=== PATIENT | female | born 1990 | race Caucasian/White ===

== ENCOUNTER → 2019-12-15 14:39 | Outpatient (BNVA) | payer MEDICAID, SELFPAY | PROVIDERS: Family Provider Family Medicine; Visit Provider Psychiatry & Neurology Psychiatry | DX: F41.1 Generalized anxiety disorder (principal); F32.9 Major depressive disorder, single episode, unspecified; F15.20 Other stimulant dependence, uncomplicated; F11.10 Opioid abuse, uncomplicated; F12.21 Cannabis dependence, in remission | CPT/HCPCS: 90792 ==

== ENCOUNTER → 2019-12-24 10:46 | Outpatient (BNVA) | payer MEDICAID, SELFPAY | PROVIDERS: Family Provider Family Medicine; Visit Provider Psychiatry & Neurology Psychiatry | DX: F32.9 Major depressive disorder, single episode, unspecified (principal); F41.1 Generalized anxiety disorder; F15.20 Other stimulant dependence, uncomplicated; F11.10 Opioid abuse, uncomplicated; F12.21 Cannabis dependence, in remission; Z79.899 Other long term (current) drug therapy; F17.200 Nicotine dependence, unspecified, uncomplicated | CPT/HCPCS: 81025; 99214 ==

== ENCOUNTER → 2020-01-18 13:39 | Outpatient (BNVA) | payer MEDICAID, SELFPAY | PROVIDERS: Family Provider Family Medicine; Visit Provider Psychiatry & Neurology Psychiatry | DX: Z79.899 Other long term (current) drug therapy (principal) | CPT/HCPCS: 80306 ==

== ENCOUNTER → 2020-02-14 08:12 | Outpatient (BNVA) | payer MEDICAID, SELFPAY | PROVIDERS: Family Provider Family Medicine; Visit Provider Psychiatry & Neurology Psychiatry | DX: F41.1 Generalized anxiety disorder (principal); F32.9 Major depressive disorder, single episode, unspecified; F15.20 Other stimulant dependence, uncomplicated; F11.10 Opioid abuse, uncomplicated; F12.21 Cannabis dependence, in remission | CPT/HCPCS: 99213 ==

== ENCOUNTER 2020-07-31 14:05 | Emergency (ER) | payer BC, MEDICAID, SELFPAY ==
[2020-07-31 14:11] VITALS: BP 143/95; PULSE 126; RESP 16; TEMP 36.2; O2SAT 97
--- NOTE | 2020-07-31 14:19 | US_ITS ---
WS: [id number] RIGHT UPPER QUADRANT ULTRASOUND HISTORY: R abdominal pain COMPARISON: None available. Liver: 19.2 cm in length. Liver is moderately enlarged. Otherwise liver is negative. No bile duct dil atation or mass. Gallbladder: Normally distended gallbladder with no stones or wall thickening. CBD: 0.6 cm Pancreas: Normal size and echogenicity. Right kidney: 11.9 cm in length. Normal size and echogenicity. No hydronephrosis or mass. Aorta and IVC: Unremarkable abdominal aorta and IVC. No ascites. US/US gall bladder [id number] IMPRESSION: 1. Moderate hepatomegaly. 2. Negative gallbladder. 3. No ascites.
[2020-07-31] MEDS: ketorolac 30 mg/mL INJ IVP (17:22)
[2020-07-31 17:24] VITALS: BP 134/99; PULSE 106; RESP 18; O2SAT 100
[2020-07-31 17:27] LABS: Basophils # 0.1 10^3/uL (0.0-0.1); Basophils % 0.8 %; Eosinophils # 0.1 10^3/uL (0.0-0.8); Eosinophils % 0.9 %; Hematocrit 42.3 % (37.0-47.0); Hemoglobin 14.4 g/dL (11.5-15.3); Lymphocytes % 32.4 %; Mean Corpuscular Hemoglobin 31.1 pg (28.0-34.0); Mean Corpuscular Volume 91.4 fL (81-99); Mean Platelet Volume 10.1 fL (7.4-10.4); Monocytes # 0.5 10^3/uL (0.2-0.9); Monocytes % 5.3 %; Neutrophils # 5.53 10^3/uL (1.8-7.7); Neutrophils % 60.4 %; Nucleated Red Blood Cells % 0 %; Platelet Count 286 10^3/cmm (130-400); Red Blood Count 4.63 10^6/uL (4.1-5.3); Red Cell Distribution Width 12.5 % (12.1-15.1); White Blood Count 9.2 10^3/uL (4.0-10.0)
[2020-07-31 17:39] LABS: HCG, Serum Qual Negative (Negative)
[2020-07-31 17:43] LABS: Lactic Sepsis W/Reflex 1.1 mmol/L (0.5-2.2)
[2020-07-31 17:46] LABS: Alanine Aminotransferase 20 U/L (0-33); Albumin Level 4.6 g/dL (3.5-5.2); Alkaline Phosphatase 182 IU/L (35-105); Anion Gap 13.8 (5-19); Aspartate Amino Transferase 19 U/L (0-32); Blood Urea Nitrogen 11 mg/dL (6-20); Calcium 8.4 mg/dL (8.5-10.5); Carbon Dioxide 25 mmol/L (22-29); Chloride 104 mmol/L (98-107); Globulin 2.9 g/dL (1.3-4.6); Glomerular Filtration Rate 97.6 mL/min (90-130); Glucose 84 mg/dL (65-115); Lipase 11 U/L (13-60); Osmolality Calculated 287 mOsm/kg (285-295); Potassium 3.8 mmol/L (3.5-5.1); Sodium 139 mmol/L (136-145); Total Bilirubin 0.5 mg/dL (0.15-1.2); Total Protein 7.5 g/dL (6.6-8.7)
[2020-07-31 18:00] LABS: Add Urine Microscopic? YES; Bilirubin Urine Neg (Negative); Blood Urine Neg (Negative); Glucose Urine UA Norm (Normal); Ketones Urine Negative (Negative); Leukocyte Esterase Urine Negative (Negative); Nitrate Urine Negative (Negative); Protein Urine Neg (Negative); Specific Gravity, Urine 1.015 (1.005-1.030); Urine Appearance Hazy (CLEAR); Urine Color Yellow (Yellow); Urobilinogen Urine Norm (Negative); pH Urine 6 (5-7)
[2020-07-31 18:06] LABS: Bacteria Urine 1+ /hpf; Mucus Urine 1+ /hpf; RBC Urine 0-4 /hpf (0-2); Squamous Epithelial Cell Urine 40-55 /hpf (0-5); WBC Urine 0-4 /hpf (0-5)
--- NOTE | 2020-07-31 18:38 | W.ED.ABDPA2 ---
HPI - Abdominal Pain General: Chief Complaint: Abdominal Pain Stated Complaint: Sent From for Gallbladder Time Seen by Provider: 07/31/20 16:20 Source: patient Mode of arrival: ambulatory Limitations: no limitations History of Present Illness: HPI narrative: This is a 29-year-old female who presents to the emergency department with abdominal pain is located in the right upper quadrant/right flank region. She states that she was here yesterday for the same thing but left before she was properly evaluated. She went to her primary care provider's office today and because of the amount of pain she appeared to be in he advised that she come to the emergency department to be evaluated. She denies any fever, denies any nausea or vomiting. Denies any history of gallbladder disease, denies any history of kidney stones. She denies any urinary symptoms. MD elicited complaint: abdominal pain and flank pain Pertinent past history: none Onset (ago): hour(s) (1) Pain Consistency: constant Location: RUQ and R flank Severity: severe Quality: stabbing Radiation: back Exacerbating factors: nothing Relieving factors: nothing Associated Symptoms: Denies anorexia, belching, bloating, change in bowel habits, change in stool character, chills, coffee ground emesis, constipation, GI cramping, diarrhea, dyspepsia, dysuria, excessive flatus, fever(s), heartburn, hematochezia, hematuria, hematemesis, fecal incontinence, loose stools, melena, nausea, poor appetite, syncope and vomiting Related Data: Date of Last Menstrual Period: 06/29/20 Review of Systems General: Reports: 10 or more systems reviewed and unremarkable except in HPI and below Const: Denies: fever(s) or chills Card: Denies: syncope GI: Denies: nausea, vomiting, hematemesis, coffee ground emesis, heartburn, diarrhea, constipation, bloating, GI cramping, belching, excessive flatus, fecal incontinence, change in bowel habits, change in stool character, hematochezia or melena : Denies: dysuria or hematuria PFS ED PFSH: Medical History (Reviewed 07/31/20 @ 18:53 by Josefa Antunez MD, [facility]) Cannabis use disorder, moderate, in early remission, in controlled environment, dependence KAITLIN (generalized anxiety disorder) MDD (major depressive disorder) Methamphetamine use disorder, severe Opiate abuse, continuous Other wrinkle chaser (current) drug therapy Social History (Reviewed 07/31/20 @ 18:53 by Josefa Antunez MD, [facility]) Smoking and tobacco status: current every day smoker cigarettes Packs smoked per day: 1 Years cigarettes smoked: 13 [ Other cigarette details: I am only allowed to have 3 a day but when I get out I will go back. ] Quit status (tobacco): not considering quitting Second hand smoke exposure: Yes Current gender identity: Female Female Reproductive History: Date of last menstrual period: 06/29/20 Physical Exam Const: COMMON NORMALS: no acute distress, average body habitus, patient oriented x3, no limitations, healthy appearing, alert and well nourished HENMT: COMMON NORMALS: normocephalic, atraumatic and moist oral mucous membranes HEAD & SCALP: normocephalic and atraumatic Neck/C-Spine: COMMON NORMALS: no meningeal signs and no JVD Resp: COMMON NORMALS: normal respiratory effort, No retractions, No use of accessory muscles, clear to auscultation bilaterally and percussion normal AUSCULTATION: clear to auscultation bilaterally PERCUSSION: percussion normal Cardio: COMMON NORMALS: no JVD, regular rate, regular rhythm, S1 normal heart sound present, S2 normal heart sound present, No gallops present (Cardio), No clicks present (Cardio), No murmurs present (Cardio), No rub (Cardio) and Peripheral pulses 2+ throughout RATE: regular rate RHYTHM: regular rhythm HEART SOUNDS: S1 normal heart sound present and S2 normal heart sound present PERIPHERAL PULSES: Peripheral pulses 2+ throughout GI: COMMON NORMALS: Normal to inspection, nondistended, normoactive bowel sounds present, Soft to palpation, No hepatosplenomegaly present, no masses and no bruits PALPATION: Yes Soft to palpation, Yes Tenderness to palpation present (GI) Details: RUQ, No Guarding due to palpation present (GI), No Rigid due to palpation, Yes No hepatosplenomegaly present and No Rebound tenderness present : BLADDER/KIDNEY EXAM: Yes CVA tenderness Back/Pelvis: GENERAL BACK: Yes CVA tenderness CVA tenderness: right Extremity: COMMON NORMALS: normal to inspection, full ROM, capillary refill normal, no calf tenderness and no pedal edema Neuro: COMMON NORMALS: patient oriented x3 SENSORIUM/ORIENTATION: Yes alert MENINGEAL SIGNS: Yes no meningeal signs Course Vital Signs: Vital signs: Vital Signs Temperature 97.1 F L 07/31/20 14:11 Pulse Rate 106 H 07/31/20 17:24 Respiratory Rate 18 07/31/20 17:24 Blood Pressure 134/99 07/31/20 17:24 Pulse Oximetry 100 07/31/20 17:24 MDM - Abdominal Pain MDM Narrative: Medical decision making narrative: 29-year-old female patient who came into the emergency department with right upper quadrant/right flank pain. Pain started yesterday and she presented to the emergency department twice but left before she was evaluated. She went to her primary care provider today who sent her to the ED for evaluation. I discussed the results of her gallbladder ultrasound which was essentially normal. Due to right flank pain on examination I ordered a CT scan of her abdomen but the patient left before it was done. She left AGAINST MEDICAL ADVICE, she understood the risks involved including worsening of her symptoms and possibly . She however still wants to leave and left AGAINST MEDICAL ADVICE. Medical Records: Attestation: I reviewed the patient's medical records. Lab Data: Attestation: I reviewed the patient's lab results. Labs: Lab Results 07/31/20 07/31/20 07/31/20 Range/Units 17:17 17:17 17:17 WBC 9.2 (4.0-10.0) 10^3/ uL RBC 4.63 (4.1-5.3) 10^6/u L Hgb 14.4 (11.5-15.3) g/dL Hct 42.3 (37.0-47.0) % MCV 91.4 (81-99) fL MCH 31.1 (28.0-34.0) pg MCHC 34.0 (30.0-36.0) g/dL RDW 12.5 (12.1-15.1) % Plt Count 286 (130-400) 10^3/c mm MPV 10.1 (7.4-10.4) fL Neut % (Auto) 60.4 % Lymph % (Auto) 32.4 % [place] % (Auto) 5.3 % Eos % (Auto) 0.9 % Baso % (Auto) 0.8 % Neut # (Auto) 5.53 (1.8-7.7) 10^3/u L Lymph # (Auto) 3.0 (0.8-4.8) 10^3/u L [place] # (Auto) 0.5 (0.2-0.9) 10^3/u L Eos # (Auto) 0.1 (0.0-0.8) 10^3/u L Baso # (Auto) 0.1 (0.0-0.1) 10^3/u L Nucleated RBC % (a uto) 0 % Nucleated RBCs # 0.0 /100WBC Sodium 139 (136-145) mmol/L Potassium 3.8 (3.5-5.1) mmol/L Chloride 104 (98-107) mmol/L Carbon Dioxide 25 (22-29) mmol/L Anion Gap 13.8 (5-19) BUN 11 (6-20) mg/dL Creatinine 0.7 (0.5-0.9) mg/dL GFR Calculation 97.6 (90-130) mL/min Glucose 84 (65-115) mg/dL Calculated Osmolal ity 287 (285-295) mOsm/k g Lactic Acid 1.1 (0.5-2.2) mmol/L Calcium 8.4 L (8.5-10.5) mg/dL Total Bilirubin 0.5 (0.15-1.2) mg/dL AST 19 (0-32) U/L ALT 20 (0-33) U/L Alkaline Phosphata se 182 H (35-105) IU/L Total Protein 7.5 (6.6-8.7) g/dL Albumin 4.6 (3.5-5.2) g/dL Globulin 2.9 (1.3-4.6) g/dL Lipase 11 L (13-60) U/L HCG, Qual (Negative) Urine Color (Yellow) Urine Appearance (CLEAR) Urine pH (5-7) Ur Specific Gravit y (1.005-1.030) Urine Protein (Negative) Urine Glucose (UA) (Normal) Urine Ketones (Negative) Urine Blood (Negative) Urine Nitrate (Negative) Urine Bilirubin (Negative) Urine Urobilinogen (Negative) mg/dL Ur Leukocyte Cyndee ase (Negative) Urine RBC (0-2) /hpf Urine WBC (0-5) /hpf Ur Squamous Epith Cells (0-5) /hpf Amorphous Sediment Urine Bacteria (NONE) /hpf Urine Mucus /hpf 07/31/20 07/31/20 Range/Units 17:17 17:27 WBC (4.0-10.0) 10^3/ uL RBC (4.1-5.3) 10^6/u L Hgb (11.5-15.3) g/dL Hct (37.0-47.0) % MCV (81-99) fL MCH (28.0-34.0) pg MCHC (30.0-36.0) g/dL RDW (12.1-15.1) % Plt Count (130-400) 10^3/c mm MPV (7.4-10.4) fL Neut % (Auto) % Lymph % (Auto) % [place] % (Auto) % Eos % (Auto) % Baso % (Auto) % Neut # (Auto) (1.8-7.7) 10^3/u L Lymph # (Auto) (0.8-4.8) 10^3/u L [place] # (Auto) (0.2-0.9) 10^3/u L Eos # (Auto) (0.0-0.8) 10^3/u L Baso # (Auto) (0.0-0.1) 10^3/u L Nucleated RBC % (a uto) % Nucleated RBCs # /100WBC Sodium (136-145) mmol/L Potassium (3.5-5.1) mmol/L Chloride (98-107) mmol/L Carbon Dioxide (22-29) mmol/L Anion Gap (5-19) BUN (6-20) mg/dL Creatinine (0.5-0.9) mg/dL GFR Calculation (90-130) mL/min Glucose (65-115) mg/dL Calculated Osmolal ity (285-295) mOsm/k g Lactic Acid (0.5-2.2) mmol/L Calcium (8.5-10.5) mg/dL Total Bilirubin (0.15-1.2) mg/dL AST (0-32) U/L ALT (0-33) U/L Alkaline Phosphata se (35-105) IU/L Total Protein (6.6-8.7) g/dL Albumin (3.5-5.2) g/dL Globulin (1.3-4.6) g/dL Lipase (13-60) U/L HCG, Qual Negative (Negative) Urine Color Yellow (Yellow) Urine Appearance Hazy A (CLEAR) Urine pH 6 (5-7) Ur Specific Gravit y 1.015 (1.005-1.030) Urine Protein Neg (Negative) Urine Glucose (UA) Norm (Normal) Urine Ketones Negative (Negative) Urine Blood Neg (Negative) Urine Nitrate Negative (Negative) Urine Bilirubin Neg (Negative) Urine Urobilinogen Norm (Negative) mg/dL Ur Leukocyte Cyndee ase Negative (Negative) Urine RBC 0-4 H (0-2) /hpf Urine WBC 0-4 H (0-5) /hpf Ur Squamous Epith Cells 40-55 H (0-5) /hpf Amorphous Sediment Not Reportable Urine Bacteria 1+ H (NONE) /hpf Urine Mucus 1+ /hpf Imaging Data ^: US: Attestation: I personally reviewed and interpreted this imaging study as follows: Radiologist's impression: [id number] [id number] ReportSigned Patient: Kari Sawyer AUnit #: [id number]: [id number]#:[id number]/Sex: 29 / FADM Date: 07/31/20Loc: ERRoom/Bed:Attending Dr: Ordering Provider/Ordering MD: Radha Perez Date of Service: 07/31/20 Procedure(s): US gall bladder 41875 Accession Number(s): [id number] Report Number: [id number] WS: [id number] RIGHT UPPER QUADRANT ULTRASOUND HISTORY: R abdominal pain COMPARISON: None available. Liver: 19.2 cm in length. Liver is moderately enlarged. Otherwise liver is negative. No bile duct dilatation or mass. Gallbladder: Normally distended gallbladder with no stones or wall thickening. CBD: 0.6 cm Pancreas: Normal size and echogenicity. Right kidney: 11.9 cm in length. Normal size and echogenicity. No hydronephrosis or mass. Aorta and IVC: Unremarkable abdominal aorta and IVC. No ascites. US/US gall bladder [id number] IMPRESSION: 1. Moderate hepatomegaly. 2. Negative gallbladder. 3. No ascites. Dictated By:Kay Moore DOSigned By:Kay Moore DOSigned Date/Time:07/31/201458DD/ 56 Discharge Plan Discharge Patient Disposition: Left Against Medical Advice Clinical Impression: Abdominal pain Prescriptions: No Action clonidine HCl 0.1 mg tablet 0.1 mg PO BID 30 Days Qty: 60 RF: 3 hydroxyzine HCl 50 mg tablet 50 mg PO TID PRN (Reason: anxiety) Qty: 90 RF: 3 gabapentin 300 mg capsule 600 mg PO TID 30 Days Qty: 180 RF: 4 Remeron 15 mg tablet 15 mg PO BEDTIME RF: 0 venlafaxine 225 mg tablet extended release 24hr 225 mg PO DAILY RF: 0 Referrals: Luis Felipe Rodriguez MD [Primary Care Provider] - Patient Instructions: Abdominal Pain (ED) Coding Level of Care Code ED Gwot Ia/[employer] Support for Chg Fwd Exam Comprehensive
== END 2020-07-31 17:47 | disposition left against medical advice (07) ==
PROVIDERS: Physician Assistant; Emergency Provider Family Medicine; PCP Family Medicine
DX: R10.9 Unspecified abdominal pain (principal); Z53.21 Procedure and treatment not carried out due to patient leaving prior to being seen by health care provider; F17.210 Nicotine dependence, cigarettes, uncomplicated
CPT/HCPCS: 76705; 80053; 81001; 83605; 83690; 84703; 85025; 96374; 99283; J1885

== ENCOUNTER → 2020-12-25 11:07 | Outpatient (BNVA) | payer BC, MEDICAID, SELFPAY | PROVIDERS: PCP Family Medicine; Visit Provider Psychiatry & Neurology Psychiatry | DX: F41.9 Anxiety disorder, unspecified (principal); F32.9 Major depressive disorder, single episode, unspecified; F41.1 Generalized anxiety disorder; F15.20 Other stimulant dependence, uncomplicated; F11.10 Opioid abuse, uncomplicated; F12.21 Cannabis dependence, in remission | CPT/HCPCS: 99214 ==

== ENCOUNTER 2021-01-05 15:46 | Emergency (ER) | payer BC, MEDICAID, SELFPAY ==
[2021-01-05 16:36] VITALS: BP 141/105; PULSE 107; RESP 22; O2SAT 95
--- NOTE | 2021-01-05 16:43 | ED_ITS ---
HPI - Trauma General: Chief Complaint: Wound/Laceration Stated Complaint: L ARM LAC Time Seen by Provider: 01/05/21 16:42 History of Present Illness: HPI narrative: Ms. Sawyer is a 30-year-old lady with history of psychiatric disorder presents emergency department due to traumatic injury. She has been at her baseline health without reported changes until today. She got angry and punched a piece of glass with her left arm, her arm went through the glass and she received multiple cuts. She does endorse consuming alcohol today and is upset. Pain is sharp/aching and moderate in intensity worse with palpation. She removed some larger fragments of glass. No other specific changes in health, exacerbating, relieving factors identified. Bleeding is controlled. Unclear last Tdap. 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 ] Quit status (tobacco): not considering quitting Second hand smoke exposure: Yes Current gender identity: Female Female Reproductive History: Date of last menstrual period: 06/29/20 Physical Exam Narrative: EXAM NARRATIVE: GENERAL/CONSTITUTIONAL - well-appearing. Tearful but no acute distress. Patient appears mildly visibly intoxicated. Eyes - PERRL, no conjunctival injection ENMT - Atraumatic external nose and ears. Moist mucous membranes NECK - supple. trachea midline CARDIOVASCULAR - regular rate and rhythm. Peripheral pulses 2+ and equal RESPIRATORY -clear to auscultation bilaterally. No retractions or accessory muscle use. ABDOMEN/GI - Nontender/Nondistended. No tenderness to percussion or evidence of peritonitis MSK - Extremities without obvious deformity or tenderness to palpation SKIN - scattered abrasions. 3 lacerations which are transversely oriented on the forearm near the elbow as well as 1 smaller puncture wound in the posterior superior elbow region. Underlying fascia exposed however no obvious muscular or tendon involvement. NEURO - alert and appropriately oriented. strength and sensation intact. Moves all extremities equally. PSYCH - Appropriate mood and affect Procedures Laceration Laceration 1: Site: upper extremity Size (cm): 2 Description: linear Depth: simple, single layer Local Anesthetic: lidocaine 1% and with epi Amount of anesthesia used (mL): 2 Pre-repair: wound explored, irrigated extensively and deep structures intact Skin layer closed with: nylon Size (cm): 3-0 Number of sutures: 2 Technique: simple, interrupted Laceration 2: Site: upper extremity Side (If applicable): left Size (cm): 3 Description: linear Depth: simple, single layer Local Anesthetic: lidocaine 1% and with epi Amount of anesthesia used (mL): 2 Pre-repair: wound explored and irrigated extensively Skin layer closed with: nylon Size (cm): 3-0 Number of sutures: 3 Technique: simple, interrupted Laceration 3: Site: upper extremity Side (If applicable): left Size (cm): 5 Description: linear Depth: simple, single layer Local Anesthetic: lidocaine 1% Amount of anesthesia used (mL): 5 Pre-repair: wound explored and irrigated extensively Skin layer closed with: nylon Size (cm): 3-0 Number of sutures: 7 Technique: simple, interrupted Course ED course: - Patient was seen and evaluated by me at bedside - Patient placed on cardiac monitors, IV access obtained - Initial evaluation notable for tearful appearance, no acute distress. No active hemorrhage. - Tdap given - Imaging notable for foreign bodies - Laceration repair at bedside of 3 of the 4 wounds (puncture wound on the posterior elbow with limited exploration, no additional foreign bodies over the than the most superficial was located or removed). - I did notify the patient of these foreign bodies. I left the room to get the ultrasound machine for further localization and discussed the case with orthopedics. The patient subsequently left the emergency department without treatment completed. She did not notify physician stamping machine operatorstaff cytotechnologist. Therefore she did not remain to receive discharge instructions or follow-up plans, she still has likely 3 very small fragments of glass in the puncture wound. During laceration repair I did give her general wound care instructions. During ED observation. The patient did obtain clinical sobriety and had capacity to leave under her own free will. Vital Signs: Vital signs: Vital Signs Pulse Rate 107 H 01/05/21 16:36 Respiratory Rate 22 H 01/05/21 16:36 Blood Pressure 141/105 01/05/21 16:36 Pulse Oximetry 95 01/05/21 16:36 MDM - Trauma Medical Records: Attestation: I reviewed the patient's medical records. Lab Data: Attestation: I reviewed the patient's lab results. Discharge Plan Discharge Prescriptions: No Action venlafaxine 75 mg capsule,extended release 24hr 75 mg PO QAM 30 Days Qty: 30 RF: 1 Referrals: Luis Felipe Rodriguez MD [Primary Care Provider] - Coding Level of Care Code ED Grants Director for Leslieg Davidson
--- NOTE | 2021-01-05 16:49 | XRR_ITS ---
PROCEDURE INFORMATION: Exam: XR Left Forearm Exam date and time: 01/05/2021 4:49 PM Age: 30 years old Clinical indication: Injury or trauma; Other: Lacerations; Arm, lower; Injury date: 01/05/21; Injury details: Arm thru window; Patient HX: Left arm laceration/pain; Additional info: Lacerations, ? foreign body TECHNIQUE: Imaging protocol: XR Left forearm. Views: 2 views. COMPARISON: No relevant prior studies available. FINDINGS: Bones/joints: Normal. Soft tissues: 4 separate linear radiopaque foreign body seen within the soft tissues of the posterior elbow at the level of the distal humeral metadiaphysis measuring 3-4 mm in size best seen on lateral view. XR/XR forearm LT 2V [id number] IMPRESSION: Multiple linear radiopaque foreign bodies within the posterior elbow measuring 3-4 mm in size.
[2021-01-05] MEDS: tetanus-dipt-pertussis 0.5 mL SDV IM (17:30)
[2021-01-05] MEDS: morphine 4 mg/mL SDV 1 mL IM (17:31)
== END 2021-01-05 19:30 ==
PROVIDERS: Emergency Provider Emergency Medicine; PCP Family Medicine
DX: S51.032A Puncture wound without foreign body of left elbow, initial encounter (principal); S51.822A Laceration with foreign body of left forearm, initial encounter; W25.XXXA Contact with sharp glass, initial encounter; F17.210 Nicotine dependence, cigarettes, uncomplicated; Z23 Encounter for immunization
CPT/HCPCS: 12004; 73090; 90471; 90715; 99283; J2270

== ENCOUNTER 2022-05-14 01:03 | Emergency (ER) | payer BC, MEDICAID, SELFPAY ==
[2022-05-14 01:09] VITALS: BP 206/153; PULSE 117; RESP 18; TEMP 36.7; O2SAT 100; BMI 27.4
--- NOTE | 2022-05-14 01:12 | ED_ITS ---
HPI - Abdominal Pain General: Chief Complaint: Abdominal Pain Stated Complaint: abd pain Time Seen by Provider: 05/14/22 01:11 History of Present Illness: 31-year-old female comes in today for complaints of right-sided abdominal pain. Patient had previous episodes of similar abdominal pain. Patient reports 1 episode of nausea and vomiting. Patient states the pain started today. Patient denies any fever. Review of patient history notes anxiety with depression, substance abuse disorder. 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 ] Quit status (tobacco): not considering quitting Second hand smoke exposure: Yes Current gender identity: Female Female Reproductive History: Date of last menstrual period: 06/29/20 Physical Exam Const: COMMON NORMALS: alert HENMT: COMMON NORMALS: normocephalic HEAD & SCALP: normocephalic MOUTH: Normal oral and palatal mucosa present Neck/C-Spine: COMMON NORMALS: full ROM Resp: COMMON NORMALS: normal respiratory effort and clear to auscultation bilaterally AUSCULTATION: clear to auscultation bilaterally Cardio: COMMON NORMALS: regular rate and regular rhythm RATE: regular rate RHYTHM: regular rhythm GI: COMMON NORMALS: Soft to palpation PALPATION: Yes Soft to palpation and Yes Tenderness to palpation present (GI) Details: RUQ Extremity: COMMON NORMALS: normal to inspection Neuro: SENSORIUM/ORIENTATION: Yes alert Skin: COMMON NORMALS: turgor normal GENERAL SKIN EXAM: turgor normal Course Vital Signs: Vital signs: Vital Signs Temperature 98.0 F 05/14/22 01:09 Pulse Rate 117 H 05/14/22 01:09 Respiratory Rate 18 05/14/22 01:09 Blood Pressure 206/153 05/14/22 01:09 Pulse Oximetry 100 05/14/22 01:09 Oxygen Delivery Me thod 05/14/22 01:09 MDM - Abdominal Pain Medical Decision Making 31-year-old female comes in today with complaints of abdominal discomfort and pain. Patient reports 1 episode of emesis. Patient appears nontoxic. Patient reports alcohol use but denies any drugs or marijuana use. On exam abdomen soft with active bowel sounds. Skin is warm and dry. Lungs are clear to auscultation. Vital signs are normal except for some elevation of blood pressure. Differential diagnosis includes but not limited to bowel obstruction, gallbladder disease, renal calculi, obstipation. CBC shows mild leukocytosis at 10,000. CMP noted a potassium of 3.3, creatinine 1.1, BUN of 21. Urine was unremarkable except for some nitrates. Suspect pain is secondary to constipation. Will start patient on lactulose and MiraLAX for his constipation. I encourage plenty of fluids and follow-up with primary care. Recommend return to the emergency department for worsening symptoms such as high fever, severe pain, or new concerns. Lab Data 05/14/22 01:20 05/14/22 01:20 Labs/Radiology: Radiology Impressions Abdomen/Pelvis CT 05/14/22 01:25 IMPRESSION: 1. No small bowel obstruction, abscess or free air. Normal appendix. 2. Perhaps mild small bowel ileus or enteritis. Fecal filled colon. 3. Large liver. A few other chronic findings above. Laboratory Results WBC 10.1 10^3/uL (4.0-10.0) H 05/14/22 01:20 RBC 4.71 10^6/uL (4.1-5.3) 05/14/22 01:20 Hgb 14.8 g/dL (11.5-15.3) 05/14/22 01:20 Hct 43.9 % (37.0-47.0) 05/14/22 01:20 MCV 93.2 fl (81-99) 05/14/22 01:20 MCH 31.4 pg (28.0-34.0) 05/14/22 01:20 MCHC 33.7 g/dL (30.0-36.0) 05/14/22 01:20 RDW 12.5 % (12.1-15.1) 05/14/22 01:20 Plt Count 304 10^3/cmm (130-400) 05/14/22 01:20 MPV 9.7 fL (7.4-10.4) 05/14/22 01:20 Neut % (Auto) 53.2 % 05/14/22 01:20 Lymph % (Auto) 35.5 % 05/14/22 01:20 [place] % (Auto) 7.2 % 05/14/22 01:20 Eos % (Auto) 2.8 % 05/14/22 01:20 Baso % (Auto) 1.0 % 05/14/22 01:20 Neut # (Auto) 5.35 10^3/uL (1.8-7.7) 05/14/22 01:20 Lymph # (Auto) 3.6 10^3/uL (0.8-4.8) 05/14/22 01:20 [place] # (Auto) 0.7 10^3/uL (0.2-0.9) 05/14/22 01:20 Eos # (Auto) 0.3 10^3/uL (0.0-0.8) 05/14/22 01:20 Baso # (Auto) 0.1 10^3/uL (0.0-0.1) 05/14/22 01:20 Nucleated RBC % (auto) 0 % 05/14/22 01:20 Nucleated RBCs # 0.0 /100WBC 05/14/22 01:20 Sodium 136 mmol/L (136-145) 05/14/22 01:20 Potassium 3.3 mmol/L (3.5-5.1) L 05/14/22 01:20 Chloride 98 mmol/L (98-107) 05/14/22 01:20 Carbon Dioxide 27 mmol/L (22-29) 05/14/22 01:20 Anion Gap 14.3 (5-19) 05/14/22 01:20 BUN 21 mg/dL (6-20) H 05/14/22 01:20 Creatinine 1.1 mg/dL (0.5-0.9) H 05/14/22 01:20 GFR Calculation 57.2 mL/min (90-130) L 05/14/22 01:20 Glucose 102 mg/dL (65-115) 05/14/22 01:20 Calculated Osmolality 285 mOsm/kg (285-295) 05/14/22 01:20 Calcium 9.1 mg/dL (8.5-10.5) 05/14/22 01:20 Total Bilirubin 0.6 mg/dL (0.15-1.2) 05/14/22 01:20 AST 24 U/L (0-32) 05/14/22 01:20 ALT 20 U/L (0-33) 05/14/22 01:20 Alkaline Phosphatase 167 U/L (35-105) H 05/14/22 01:20 Total Protein 7.7 g/dL (6.6-8.7) 05/14/22 01:20 Albumin 4.6 g/dL (3.5-5.2) 05/14/22 01:20 Globulin 3.1 g/dL (1.3-4.6) 05/14/22 01:20 Lipase 13 U/L (13-60) 05/14/22 01:20 HCG, Qual Negative (Negative) 05/14/22 01:20 Urine Color Yellow (Yellow) 05/14/22 02:19 Urine Appearance Sl hazy (CLEAR) A 05/14/22 02:19 Urine pH 6 (5-7) 05/14/22 02:19 Ur Specific [place] 1.020 (1.005-1.030) 05/14/22 02:19 Urine Protein Neg (Negative) 05/14/22 02:19 Urine Glucose (UA) Norm (Normal) 05/14/22 02:19 Urine Ketones Negative (Negative) 05/14/22 02:19 Urine Blood Neg (Negative) 05/14/22 02:19 Urine Nitrate Positive (Negative) H 05/14/22 02:19 Urine Bilirubin Neg (Negative) 05/14/22 02:19 Urine Urobilinogen Norm mg/dL (Negative) 05/14/22 02:19 Ur Leukocyte Esterase Negative (Negative) 05/14/22 02:19 Urine RBC 0-4 /hpf (0-2) H 05/14/22 02:19 Urine WBC 0-4 /hpf (0-5) H 05/14/22 02:19 Ur Squamous Epith Cells 0-4 /hpf (0-5) H 05/14/22 02:19 Amorphous Sediment Not Reportable 05/14/22 02:19 Discharge Plan Discharge Patient Disposition: Home Clinical Impression: Abdominal pain Constipation Qualifiers: Constipation type: unspecified constipation type Qualified Code(s): K59.00 - Constipation, unspecified Condition: Stable Prescriptions: New lactulose 20 gram/30 mL solution 20 g PO BID PRN (Reason: constipation) Qty: 1200 0RF Miralax 17 gram/dose powder 17 g PO BID PRN (Reason: constipation) Qty: 510 0RF No Action venlafaxine 75 mg capsule,extended release 24hr 75 mg PO QAM 30 Days Qty: 30 1RF Discharge Orders: Discharge ED (Routine); Ordered 05/14/22 Ordered By: Pascual Montoya Referrals: Luis Felipe Rodriguez MD [Primary Care Provider] - Discharge Diet: Usual diet Discharge Activity: Increase activity as tolerated Patient Instructions: Constipation (ED), Abdominal Pain (ED) Activity Restrictions/Additional Instructions: Drink plenty of water. Is important to stay well-hydrated in order to prevent constipation. Eat a healthy diet with plenty of fiber. Use lactulose as needed for laxative effect 2 times daily. Use MiraLAX 1-2 times routinely to maintain regular stools. Follow-up with primary care as needed. Return to ED for worsening symptoms such as blood in vomit or stool, fever greater than 100.4, worsening abdominal pain without passing gas, or new concerns. Coding Level of Care Code ED Performing Arts Road Manager for Mary Cedeño
--- NOTE | 2022-05-14 01:25 | CTR_ITS ---
PROCEDURE INFORMATION: Exam: CT Abdomen And Pelvis With Contrast Exam date and time: 05/14/2022 1:44 AM Age: 31 years old Clinical indication: Nausea and vomiting; Abdominal pain; Localized; Right upper quadrant (ruq); Patient HX: C/O ruq pain with n/v. ; Additional info: Abd pain TECHNIQUE: Imaging protocol: Computed tomography of the abdomen and pelvis with contrast. Radiation optimization: All CT scans at this facility use at least one of these dose optimization techniques: automated exposure control; mA and/or kV adjustment per patient size (includes targeted exams where dose is matched to clinical indication); or iterative reconstruction. Contrast material: OMNI 350; Contrast volume: 100 ml; Contrast route: INTRAVENOUS (IV); Other protocol: This patient has received 0 known CTs and 0 known cardiac nuclear medicine studies in the 12 months prior to the current study. COMPARISON: US gall bladder [id number] 07/31/2020 2:33 PM RADIATION DOSE METRICS: Total DLP (mGy-cm): 491.99 FINDINGS: Lungs: Minimal RML atelectasis or pneumonitis. Liver: Liver is large. No enhancing liver mass is noted. Gallbladder and bile ducts: No calcified gallstones or biliary dilation identified. Pancreas: Unremarkable with no suspicious mass. No ductal dilation. Spleen: The spleen is not enlarged. No suspicious enhancing mass is noted. Adrenal glands: Normal. No mass. Kidneys and ureters: No solid renal mass or hydronephrosis. Lobular and potentially scarred kidneys. Tiny left kidney stone. Stomach and bowel: Fecal filled colon. Some areas of left colon are collapsed and not well studied. No overt colitis. No small bowel dilation or free air. A few loops of small bowel measure up to nearly 3 cm. No bowel hernia. Appendix: No evidence of appendicitis. Intraperitoneal space: See Stomach and bowel finding. Vasculature: No AAA or acute vascular lesion identified. Lymph nodes: No enlarged lymph nodes. Urinary bladder: Unremarkable as visualized. Reproductive: Unremarkable as visualized. Bones/joints: No acute fracture. Soft tissues: Very small fat umbilical hernia. CT/CT abdomen pelvis w con* [id number] IMPRESSION: 1. No small bowel obstruction, abscess or free air. Normal appendix. 2. Perhaps mild small bowel ileus or enteritis. Fecal filled colon. 3. Large liver. A few other chronic findings above.
[2022-05-14 01:28] LABS: Basophils # 0.1 10^3/uL (0.0-0.1); Eosinophils # 0.3 10^3/uL (0.0-0.8); Eosinophils % 2.8 %; Hematocrit 43.9 % (37.0-47.0); Hemoglobin 14.8 g/dL (11.5-15.3); Lymphocytes # 3.6 10^3/uL (0.8-4.8); Lymphocytes % 35.5 %; Mean Corpuscular HGB Conc 33.7 g/dL (30.0-36.0); Mean Corpuscular Hemoglobin 31.4 pg (28.0-34.0); Mean Corpuscular Volume 93.2 fl (81-99); Mean Platelet Volume 9.7 fL (7.4-10.4); Monocytes # 0.7 10^3/uL (0.2-0.9); Monocytes % 7.2 %; Neutrophils # 5.35 10^3/uL (1.8-7.7); Neutrophils % 53.2 %; Nucleated Red Blood Cells % 0 %; Platelet Count 304 10^3/cmm (130-400); Red Blood Count 4.71 10^6/uL (4.1-5.3); Red Cell Distribution Width 12.5 % (12.1-15.1); White Blood Count 10.1 10^3/uL (4.0-10.0)
[2022-05-14] MEDS: morphine 4 mg/mL SDV 1 mL 2 MG IVP (01:31)
[2022-05-14] MEDS: haloperidol inj 5 mg/mL INJ 1 mL 2 MG IVP (01:32)
[2022-05-14] MEDS: sodium chloride 0.9% 1,000 ML 999 ML IV (01:33)
[2022-05-14 01:38] LABS: HCG, Serum Qual Negative (Negative)
[2022-05-14 01:46] LABS: Alanine Aminotransferase 20 U/L (0-33); Albumin Level 4.6 g/dL (3.5-5.2); Alkaline Phosphatase 167 U/L (35-105); Anion Gap 14.3 (5-19); Aspartate Amino Transferase 24 U/L (0-32); Blood Urea Nitrogen 21 mg/dL (6-20); Calcium 9.1 mg/dL (8.5-10.5); Carbon Dioxide 27 mmol/L (22-29); Chloride 98 mmol/L (98-107); Globulin 3.1 g/dL (1.3-4.6); Glomerular Filtration Rate 57.2 mL/min (90-130); Glucose 102 mg/dL (65-115); Lipase 13 U/L (13-60); Osmolality Calculated 285 mOsm/kg (285-295); Potassium 3.3 mmol/L (3.5-5.1); Sodium 136 mmol/L (136-145); Total Bilirubin 0.6 mg/dL (0.15-1.2); Total Protein 7.7 g/dL (6.6-8.7)
[2022-05-14] MEDS: iohexol 350 mg/mL 500 mL Btl (per mL) IV (01:46)
[2022-05-14 02:43] LABS: Add Urine Microscopic? YES; Bilirubin Urine Neg (Negative); Blood Urine Neg (Negative); Glucose Urine UA Norm (Normal); Ketones Urine Negative (Negative); Leukocyte Esterase Urine Negative (Negative); Nitrate Urine Positive (Negative); Protein Urine Neg (Negative); Urine Appearance SL Hazy (CLEAR); Urine Color Yellow (Yellow); Urobilinogen Urine Norm (Negative); pH Urine 6 (5-7)
[2022-05-14 02:44] LABS: Add Urine Culture? Yes; RBC Urine 0-4 /hpf (0-2); Squamous Epithelial Cell Urine 0-4 /hpf (0-5); WBC Urine 0-4 /hpf (0-5)
[2022-05-14] MEDS: lactulose oral liq 20 gm/30 mL UDC 30 GM PO (03:02)
[2022-05-14 03:16] LABS: Bacteria Urine 2+ /hpf
[2022-05-14 03:18] VITALS: BP 156/99; PULSE 98; RESP 18; O2SAT 97
== END 2022-05-14 03:05 | disposition home or self-care (01) ==
PROVIDERS: Emergency Provider Nurse Practitioner Family; PCP Family Medicine
DX: K59.00 Constipation, unspecified (principal); F17.210 Nicotine dependence, cigarettes, uncomplicated
CPT/HCPCS: 74177; 80053; 81001; 83690; 84703; 85025; 87077; 87086; 87186; 96361; 96374; 96375; 99285; J1630; J2270; J7030; Q9967

== ENCOUNTER 2023-06-24 16:53 | Inpatient (IN) | payer BC, SELFPAY ==
[2023-06-24] VITALS (14 sets, daily range): BP systolic 158–178; BP diastolic 109–146; PULSE 109–140; RESP 16–29; TEMP 36.6; O2SAT 99–100; BMI 28.3
--- NOTE | 2023-06-24 17:42 | ED.C_ITS ---
HPI - Psych 2 General: Chief Complaint: Psychiatric Symptoms Stated Complaint: SI Time Seen by Provider: 06/24/23 16:59 Source: patient Mode of arrival: ambulatory Limitations: no limitations History of Present Illness: 32-year-old female who has a history of drug abuse along with alcohol abuse. She states she is a daily drinker and wanting to get detox. She states that her last drink was this morning she denies being suicidal to me. She states that she is just scared she is going to drink herself to and wants to get detox. She is hypertensive tachycardic here but she has no tremors. States she has a history of blood pressure as well as not been on any meds. She denies any seizures or vomiting. Associated symptoms: Reports depression; Deny homicidal ideation Review of Systems 2 Const: Denies: fever(s), chills, body aches or change in appetite ENMT: Denies: throat pain or dental pain Card: Denies: chest pain Resp: Denies: dyspnea GI: Denies: abdominal pain, nausea, vomiting or diarrhea Musc: Denies: neck pain or back pain Skin/Breast: Denies: rash Neuro: Denies: headache(s) Psych: Reports: depression; Denies: homicidal ideation [facility] ED 2 PFSH: Medical History Anxiety and depression Other [facility] (current) drug therapy Cannabis use disorder, moderate, in early remission, in controlled environment, dependence Opiate abuse, continuous Methamphetamine use disorder, severe KAITLIN (generalized anxiety disorder) MDD (major depressive disorder) Social History Smoking and tobacco/nicotine status: current every day tobacco/nicotine user cigarettes Packs smoked per day: 1 Years cigarettes smoked: 13 [ Other cigarette details: I am only allowed to have 3 a day but when I get out I will go back. ] Quit status (tobacco/nicotine): not considering quitting Second hand smoke exposure: Yes Current gender identity: Female Physical Exam 2 Const: COMMON NORMALS: patient oriented x3 HENMT: COMMON NORMALS: normocephalic and atraumatic HEAD & SCALP: n ormocephalic and atraumatic Neck/C-Spine: COMMON NORMALS: full ROM and supple Chest: COMMONS NORMALS: normal inspection of the chest and normal palpation of entire chest wall Resp: COMMON NORMALS: normal respiratory effort, No retractions, No use of accessory muscles and clear to auscultation bilaterally AUSCULTATION: clear to auscultation bilaterally Cardio: COMMON NORMALS: regular rhythm and No murmurs present (Cardio) R ATE: tachycardic RHYTHM: regular rhythm GI: COMMON NORMALS: Normal to inspection, nondistended, normoactive bowel sounds present, Soft to palpation, non-tender and no masses PALPATION: Yes Soft to palpation Extremity: COMMON NORMALS: normal to inspection and full ROM Neuro: COMMON NORMALS: patient oriented x3, moves all extremities and no focal motor deficits Psych: COMMON NORMALS: mental status grossly normal, Normal thought process present and cooperative THOUGHT PROCESS: Normal thought process present T HOUGHT CONTENT: No Suicidality present Skin: COMMON NORMALS: no rashes or lesions noted and no wounds GENERAL SKIN EXAM: no rashes or lesions noted Course 2 Vital Signs: Vital signs: Vital Signs Temperature 97.8 F 06/24/23 17:11 Pulse Rate 115 H 06/24/23 18:45 Respiratory Rate 16 06/24/23 18:45 Blood Pressure 161/110 06/24/23 18:45 Pulse Oximetry 100 06/24/23 18:45 Oxygen Delivery Me thod Room Air 06/24/23 18:45 MDM - Psych Medical Decision Making Patient presents here with some depression upon speaking to her further she is not actively suicidal she is really wanting to get detox. Patient is hypertensive and tachycardic likely having some alcohol withdrawal she has no tremor or seizure activity have given her Ativan and metoprolol and she continues to have the hypertension and tachycardia did speak to the hospitalist Dr. Vo will admit for this. Will have her have a psych eval as well while she is admitted and spoke to the psychiatrist and consulted. Medical Records I reviewed the patient's medical records. Lab Data I reviewed the patient's lab results. 06/24/23 18:21 06/24/23 18:21 Laboratory Results WBC 10.28 10^3/uL (3.29-11.43) 06/24/23 18:21 RBC 4.26 10^6/uL (3.85-5.65) 06/24/23 18:21 Hgb 14.00 g/dL (11.27-16.99) 06/24/23 18:21 Hct 40.7 % (36-47) 06/24/23 18:21 MCV 95.5 fl (85-98) 06/24/23 18:21 MCH 32.9 pg (27-33) 06/24/23 18:21 MCHC 34.4 g/dL (30-55) 06/24/23 18:21 RDW 12.5 % (12.1-15.1) 06/24/23 18:21 Plt Count 251 10^3/cmm (157-399) 06/24/23 18:21 MPV 10.2 fL (7.4-10.4) 06/24/23 18:21 Neut % (Auto) 72.3 % 06/24/23 18:21 Lymph % (Auto) 19.2 % 06/24/23 18:21 [place] % (Auto) 5.9 % 06/24/23 18:21 Eos % (Auto) 1.5 % 06/24/23 18:21 Baso % (Auto) 0.7 % 06/24/23 18:21 Neut # (Auto) 7.44 10^3/uL (1.8-7.7) 06/24/23 18:21 Lymph # (Auto) 2.0 10^3/uL (0.8-4.8) 06/24/23 18:21 [place] # (Auto) 0.6 10^3/uL (0.2-0.9) 06/24/23 18:21 Eos # (Auto) 0.2 10^3/uL (0.0-0.8) 06/24/23 18:21 Baso # (Auto) 0.1 10^3/uL (0.0-0.1) 06/24/23 18:21 Nucleated RBC % (auto) 0 % 06/24/23 18: Nucleated RBCs # 0.0 /100WBC 06/24/23 18:21 Sodium 137 mmol/L (136-145) 06/24/23 18:21 Potassium 3.5 mmol/L (3.5-5.1) 06/24/23 18:21 Chloride 102 mmol/L (98-107) 06/24/23 18:21 Carbon Dioxide 25 mmol/L (22-29) 06/24/23 18:21 Anion Gap 13.5 (5-19) 06/24/23 18:21 BUN 17 mg/dL (6-20) 06/24/23 18:21 Creatinine 1.0 mg/dL (0.5-0.9) H 06/24/23 18:21 GFR Calculation 63.5 mL/min (90-130) L 06/24/23 18:21 Glucose 103 mg/dL (65-115) 06/24/23 18:21 Calculated Osmolality 286 mOsm/kg (285-295) 06/24/23 18:21 Calcium 8.9 mg/dL (8.5-10.5) 06/24/23 18:21 Total Bilirubin 1.2 mg/dL (0.15-1.2) 06/24/23 18:21 AST 88 U/L (0-32) H 06/24/23 18:21 ALT 61 U/L (0-33) H 06/24/23 18:21 Alkaline Phosphatase 183 U/L (35-105) H 06/24/23 18:21 Total Protein 7.3 g/dL (6.6-8.7) 06/24/23 18:21 Albumin 4.2 g/dL (3.5-5.2) 06/24/23 18:21 Globulin 3.1 g/dL (1.3-4.6) 06/24/23 18:21 HCG, Qual Negative (Negative) 06/24/23 17:20 Salicylates < 0.3 mg/dL (3-10) L 06/24/23 18:21 Urine Opiates Screen Negative ng/mL (Negative) 06/24/23 17:20 Acetaminophen < 5.0 ug/mL (10-30) L 06/24/23 18:21 Ur Barbiturates Screen Negative ng/mL (Negative) 06/24/23 17:20 Ur Phencyclidine Scrn Negative ng/mL (Negative) 06/24/23 17:20 Ur Amphetamines Screen Positive ng/mL (Negative) H 06/24/23 17:20 U Benzodiazepines Scrn Negative ng/mL (Negative) 06/24/23 17:20 Urine Cocaine Screen Negative ng/mL (Negative) 06/24/23 17:20 U Marijuana (THC) Screen Positive ng/mL (Negative) H 06/24/23 17:20 Ethyl Alcohol < 10 mg/dL (0-10) 06/24/23 18:21 XR interpretation done by ED provider, pending radiology final review EKG Data EKG 1: I personally reviewed and interpreted this EKG as follows: EKG interpretation date: 06/24/23 EKG interpretation time: 18:38 Interpretation: sinus tach hr [address] or t wave abnormalities qrs 92 qtc 420 Discharge Plan Discharge Admit Provider: Yadiel Agee Condition: Stable Coding Level of Care Code ED Rim Fire Charger Operator for Chg Fwalexandra
[2023-06-24 17:48] LABS: HCG Qualitative Urine. Negative (Negative)
[2023-06-24 17:51] LABS: Amphetamines Screen Urine Positive (Negative); Barbiturates Screen Urine Negative (Negative); Benzodiazepines Screen Urine Negative (Negative); Cocaine Screen Urine Negative (Negative); Opiate Screen Urine Negative (Negative); PCP Screen Urine Negative (Negative); THC Screen Urine Positive (Negative)
--- NOTE | 2023-06-24 18:09 | PC.NURSE ---
pt on bedside electronic device monitor
[2023-06-24] MEDS: LORazepam 2 mg/mL INJ 10 mL MDV IVP (18:10)
[2023-06-24] MEDS: sodium chloride 0.9% 1,000 ML 999 ML IV ×2 (18:10→19:52)
[2023-06-24] MEDS: labetalol 5 mg/mL SDV 20mL 10 MG IVP ×2 (18:15→18:43)
[2023-06-24] MEDS: multivitamin therapeutic Tablet 1 TAB PO (18:16)
[2023-06-24 18:28] LABS: Basophils # 0.1 10^3/uL (0.0-0.1); Basophils % 0.7 %; Eosinophils # 0.2 10^3/uL (0.0-0.8); Eosinophils % 1.5 %; Hematocrit 40.7 % (36-47); Lymphocytes % 19.2 %; Mean Corpuscular HGB Conc 34.4 g/dL (30-55); Mean Corpuscular Hemoglobin 32.9 pg (27-33); Mean Corpuscular Volume 95.5 fl (85-98); Mean Platelet Volume 10.2 fL (7.4-10.4); Monocytes # 0.6 10^3/uL (0.2-0.9); Monocytes % 5.9 %; Neutrophils # 7.44 10^3/uL (1.8-7.7); Neutrophils % 72.3 %; Nucleated Red Blood Cells % 0 %; Platelet Count 251 10^3/cmm (157-399); Red Blood Count 4.26 10^6/uL (3.85-5.65); Red Cell Distribution Width 12.5 % (12.1-15.1); White Blood Count 10.28 10^3/uL (3.29-11.43)
--- NOTE | 2023-06-24 18:38 | ECG_ITS ---
[facility] Test Date: 2023-06-24 Pat Name: Kari Sawyer Department: Room: Gender: Female Devops: : 1990 Requested By: Vincent Bird Order Number: [id number] Madalyn MD: Devin Arredondo M.D. Measurements Intervals [place] Rate: 112 P: 51 IA: 124 QRS: -18 QRSD: 92 T: 56 QT: 354 QTc: 484 Interpretive Statements SINUS TACHYCARDIA WITH OCCASIONAL ECTOPIC PREMATURE COMPLEXES INCOMPLETE RIGHT BUNDLE BRANCH BLOCK [90+ ms QRS DURATION, TERMINAL R IN V1/V2, 40+ ms S IN I/aVL/V4/V5/V6] NONSPECIFIC T-WAVE ABNORMALITY Compared to ECG 11/07/2016 18:28:40 Incomplete right bundle-branch block now present Short IA interval no longer present Indeterminate axis no longer present T-wave abnormality still present Electronically Signed On 06-24-2023 21:29:14 CDT by Devin Arredondo M.D. [id number]
[2023-06-24] MEDS: LORazepam 2 mg/mL INJ 10 mL MDV 1 MG IVP (18:43)
--- NOTE | 2023-06-24 19:07 | PC.NURSE ---
Report to JEAN PAUL Willams
[2023-06-24 19:19] LABS: Alanine Aminotransferase 61 U/L (0-33); Albumin Level 4.2 g/dL (3.5-5.2); Alkaline Phosphatase 183 U/L (35-105); Anion Gap 13.5 (5-19); Aspartate Amino Transferase 88 U/L (0-32); Blood Urea Nitrogen 17 mg/dL (6-20); Calcium 8.9 mg/dL (8.5-10.5); Carbon Dioxide 25 mmol/L (22-29); Chloride 102 mmol/L (98-107); Creatinine Clr Calc Pharmacy 78.5337; Globulin 3.1 g/dL (1.3-4.6); Glomerular Filtration Rate 63.5 mL/min (90-130); Glucose 103 mg/dL (65-115); Osmolality Calculated 286 mOsm/kg (285-295); Potassium 3.5 mmol/L (3.5-5.1); Sodium 137 mmol/L (136-145); Total Bilirubin 1.2 mg/dL (0.15-1.2); Total Protein 7.3 g/dL (6.6-8.7)
[2023-06-24 19:22] LABS: Acetaminophen < 5.0 ug/mL (10-30); Alcohol Level < 10 mg/dL (0-10); Salicylate < 0.3 mg/dL (3-10)
--- NOTE | 2023-06-24 20:27 | PM.HP ---
Providers/Chief Complaint Admitting Physician: Yadiel Agee MD Primary Care Provider: Luis Felipe Rodriguez MD Chief Complaint: SI History of Present Illness Kari Sawyer is a 32 year old female who is trying to go to crisis center in [place], she is in contact with Mr. Attila Razos who has recommended her to go to the [facility] but want detox before her admission. Patient is stating that she is drinking 20-30 shots of strawberry 99 almost daily basis never had any significant withdrawal in the past to the point of seizure or intubation. She is endorsing to use of marijuana and methamphetamine. She snorts meth last use was on Friday night. Last alcoholic drink was today she took 2 shots before coming to the hospital, she also endorsed suicidal ideation but stating that she made the statement to get into neuropsychiatric unit for detox. She does not have a house, living with a friend, at the time of evaluation systolic pressure 158, diastolic 109 mmHg tachycardic heart rate 113 sinus tachycardia Clinically looks dehydrated Drug screen positive for methamphetamine and THC, D-dimer unremarkable Review of Systems Const: Denies: fever(s) Eyes: Denies: change in vision ENMT: Denies: throat pain Card: Denies: chest pain Resp: Denies: dyspnea Medications/Allergies Home Medications Medication Instructions Recorded Confirmed Last Taken Type venlafaxine 75 mg capsule,extended 75 mg PO QAM 30 days #30 caps 12/25/20 06/24/23 Unknown Rx release 24 hr losartan 50 mg-hydrochlorothiazide 1 tab PO DAILY 06/24/23 06/24/23 Unknown History 12.5 mg tablet Allergies Allergy/AdvReac Type Severity Reaction Status Date / Time No Known Allergies Allergy Verified 07/31/20 14:14 PFSH Acute PFSH: Medical History Anxiety and depression 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 ] Quit status (tobacco/nicotine): not considering quitting Second hand smoke exposure: Yes Current gender identity: Female Vitals/I&O/Wt Last Vital Signs Temp 97.8 F 06/24/23 17:11 Pulse 118 H 06/24/23 20:15 Resp 16 06/24/23 18:45 BP 173/121 06/24/23 20:15 Pulse Ox 100 06/24/23 20:15 O2 Del Method Room Air 06/24/23 18:45 06/24/23 06/24/23 06/24/23 06:59 14:59 22:59 Intake Total 1000 / 1000 Balance 1000 / 1000 Weight last 48 hrs Weight 74.843 kg Physical Exam Narrative: Awake and alert Dehydrated GCS 15 S1, S2 10 Catr[place] Hypertensive Nonfocal neuroexam Appropriate hygiene Appears stated age Currently on room air No active tremors No active headache or hallucinations Data 06/24/23 18:21 06/24/23 18:21 A&P Assessment and plan (1) KAITLIN (generalized anxiety disorder): (2) Methamphetamine use disorder, severe: (3) Opiate abuse, continuous: (4) Anxiety and depression: (5) Cannabis use disorder, moderate, in early remission, in controlled environment, dependence: (6) Alcohol withdrawal: (7) Hypertensive crisis: Plan Hypertensive crisis Etiology seems to be alcohol withdrawal Use of methamphetamine Marijuana I will start her losartan hydrochlorothiazide combination She has received labetalol in the ER Start CIWA protocol No active signs of withdrawal Check D-dimer and TSH Drug screen reviewed Sinus tachycardia related to polysubstance abuse D-dimer unremarkable Generalized anxiety Patient is planning to go to [facility] in [place] in contact with crisis center personnel Mr. Attila Piedra Continue venlafaxine Check beta-hCG, TSH, B12, CIWA protocol Regular diet DVT prophylaxis on board Full code Suicidal ideation: Patient is stating that he made a statement just to get a neuropsychiatric unit just make sure she is in a safe environment for detox she is not planning to hurt herself denying active suicidal ideation will consult neuropsych Attestations Medical Necessity Statement*: Anticipating more than 2 midnights for evaluation of hypertensive crisis, suicidal ideation Diagnoses KAITLIN (generalized anxiety disorder) F41.1 Methamphetamine use disorder, severe F15.20 Opiate abuse, continuous F11.10 Anxiety and depression F41.9; F32.9 Cannabis use disorder, moderate, in early remission, in controlled environment, dependence F12.21 Alcohol withdrawal F10.939 Hypertensive crisis I16.9
[2023-06-24 20:55] LABS: D Dimer 0.36 ug/mLFEU (0-0.59)
--- NOTE | 2023-06-24 21:01 | PC.NURSE ---
Received patient from ED. Patient denies any suicidal/homicidal ideations at this time. Patient stated, I just want to stop all the bad stuff. Admission completed as documented. Will continue to monitor.
[2023-06-24] MEDS: enoxaparin 40 mg/0.4 mL Syringe SUBCUT (21:20)
[2023-06-24] MEDS: sodium chloride 0.9% 1,000 ML 75 ML IV (21:20)
[2023-06-24] MEDS: LORazepam 2 mg/mL INJ 1 mL IVP (23:13)
[2023-06-25] VITALS (23 sets, daily range): BP systolic 120–173; BP diastolic 81–128; PULSE 72–123; RESP 12–29; TEMP 36.4–36.8; O2SAT 100
[2023-06-25] MEDS: LORazepam 2 mg/mL INJ 1 mL IVP ×2 (00:15→19:07)
[2023-06-25 02:13] LABS: Vitamin B12 365 pg/mL (232-1245)
[2023-06-25] MEDS: venlafaxine ER (24HR) 75 mg Capsule PO (05:14)
[2023-06-25 05:31] LABS: Basophils # 0.1 10^3/uL (0.0-0.1); Basophils % 0.7 %; Eosinophils # 0.3 10^3/uL (0.0-0.8); Eosinophils % 4.9 %; Hematocrit 35.6 % (36-47); Lymphocytes % 43.5 %; Mean Corpuscular HGB Conc 33.7 g/dL (30-55); Mean Corpuscular Hemoglobin 33.5 pg (27-33); Mean Corpuscular Volume 99.4 fl (85-98); Monocytes # 0.3 10^3/uL (0.2-0.9); Monocytes % 4.1 %; Neutrophils # 3.16 10^3/uL (1.8-7.7); Neutrophils % 46.7 %; Nucleated Red Blood Cells % 0 %; Platelet Count 208 10^3/cmm (157-399); Red Blood Count 3.58 10^6/uL (3.85-5.65); Red Cell Distribution Width 12.7 % (12.1-15.1); White Blood Count 6.78 10^3/uL (3.29-11.43)
[2023-06-25 06:04] LABS: Anion Gap 10.9 (5-19); Blood Urea Nitrogen 15 mg/dL (6-20); Calcium 8.3 mg/dL (8.5-10.5); Carbon Dioxide 23 mmol/L (22-29); Chloride 107 mmol/L (98-107); Creatinine Clr Calc Pharmacy 88.3697; Glomerular Filtration Rate 71.7 mL/min (90-130); Glucose 75 mg/dL (65-115); Magnesium 2.1 mg/dL (1.7-2.3); Osmolality Calculated 286 mOsm/kg (285-295); Phosphorus 3.4 mg/dL (2.5-4.5); Sodium 138 mmol/L (136-145)
[2023-06-25 06:22] LABS: Potassium 2.9 mmol/L (3.5-5.1)
--- NOTE | 2023-06-25 08:19 | US_ITS ---
WS: [id number] Gallbladder and right upper quadrant ultrasound, 06/25/2023 Clinical Data: liver and gallbladder Comparison: None. Findings: The gallbladder shows no sludge or stone. The wall measures 0.2 cm with no pericholecystic fluid. The common bile duct is 0.4 cm and there are no intrahepatic ductal abnormalities. Liver shows no cysts, masses or dilated intrahepatic ducts. The liver parenchyma shows fatty infiltra tion. The liver measures 7.2 cm. The portal vein demonstrates normal flow and measures 0.7 cm. The pancreas is not obscured by overlying bowel gas and no cyst, pseudocyst, or evidence of pancreati tis is noted. Right kidney measures 9.7 cm and no cyst, masses or hydronephrosis can be seen. The aorta and inferior vena cava show no vascular abnormalities. The inferior vena cava measures 1.6 cm in the abdominal aorta 1.7 cm. Impression: Minimal fatty infiltration of the liver.
[2023-06-25] MEDS: hydroCHLOROthiazide 25 mg Tablet 12.5 MG PO (09:49)
[2023-06-25] MEDS: multivitamin therapeutic Tablet 1 TAB PO (09:49)
[2023-06-25] MEDS: thiamine 100 mg Tablet PO (09:49)
[2023-06-25] MEDS: metoprolol tartrate 50 mg Tablet PO ×2 (09:49→20:44)
[2023-06-25] MEDS: pantoprazole 40 mg SDV IVP ×2 (09:49→17:52)
[2023-06-25] MEDS: folic acid 1 mg Tablet PO (09:49)
[2023-06-25] MEDS: chlordiazePOXIDE 25 mg Capsule PO ×2 (09:49→17:52)
[2023-06-25] MEDS: potassium chloride ER 20 mEq Tablet 40 MEQ PO (09:49)
[2023-06-25] MEDS: losartan 50 mg Tablet PO (09:49)
[2023-06-25] MEDS: cloNIDine 0.1 mg Tablet 0.100000000000000006 MG PO ×2 (12:43→17:52)
[2023-06-25] MEDS: sodium chloride 0.9% 1,000 ML 75 ML IV (12:44)
--- NOTE | 2023-06-25 13:23 | P.PN_ITS ---
Subjective 2 Subjective: patient was seen this morning, she denies fever, no chills, no cough, does report tremor, does report feeling anxious, denies seeing or hearing things that are not thier, no active suicidal or homicidal ideation, Vitals/I&O/Wt Last Vital Signs Temp 97.6 F 06/25/23 11:00 Pulse 108 H 06/25/23 11:00 Resp 17 06/25/23 11:00 BP 163/116 06/25/23 11:00 Pulse Ox 100 06/25/23 05:00 O2 Del Method Room Air 06/25/23 05:00 06/24/23 06/25/23 06/25/23 22:59 06:59 14:59 Intake Total 2480 / 2480 1000 / 1000 Balance 2480 / 2480 1000 / 1000 Weight last 48 hrs Weight 76.839 kg Weight 76.839 kg Weight 74.843 kg Physical Exam 2 Const: COMMON NORMALS: no acute distress and patient oriented x3 Resp: COMMON NORMALS: normal respiratory effort, No retractions, No use of accessory muscles and clear to auscultation bilaterally AUSCULTATION: clear to auscultation bilaterally Cardio: COMMON NORMALS: regular rate, regular rhythm, S1 normal heart sound present and S2 normal heart sound present RATE: regular rate RHYTHM: r egular rhythm HEART SOUNDS: S1 normal heart sound present and S2 normal heart sound present GI: COMMON NORMALS: Normal to inspection, nondistended, normoactive bowel sounds present and non-tender Extremity: COMMON NORMALS: no pedal edema Neuro: COMMON NORMALS: patient oriented x3 Psych: COMMON NORMALS: mental status grossly normal Data 06/25/23 04:34 06/25/23 04:34 A&P Assessment and plan (1) KAITLIN (generalized anxiety disorder): (2) Methamphetamine use disorder, severe: (3) Opiate abuse, continuous: (4) Anxiety and depression: (5) Cannabis use disorder, moderate, in early remission, in controlled environment, dependence: (6) Alcohol withdrawal: (7) Hypertensive crisis: Plan Hypertensive crisis Etiology seems to be alcohol withdrawal Use of methamphetamine Marijuana clonidine 0.1mg BID losartan-hctz Start CIWA protocol Drug screen reviewed Sinus tachycardia related to polysubstance abuse D-dimer unremarkable Generalized anxiety Patient is planning to go to [facility] in [facility] in contact with crisis center personnel Mr. Attila Piedra Continue venlafaxine Check beta-hCG, TSH, B12 WNL CIWA protocol, will start on scheduled librium Regular diet DVT prophylaxis on board Full code Suicidal ideation: Patient is stating that he made a statement just to get a neuropsychiatric unit just make sure she is in a safe environment for detox she is not planning to hurt herself denying active suicidal ideation will consult neuropsych Attestations 2 Medical Necessity Statement*: patient requires hospitalization for alcohol withdrawal, and htn crisis Coding Level of Care Code Acute Code for [facility] Fwd Diagnoses KAITLIN (generalized anxiety disorder) F41.1 Methamphetamine use disorder, severe F15.20 Opiate abuse, continuous F11.10 Anxiety and depression F41.9; F32.9 Cannabis use disorder, moderate, in early remission, in controlled environment, dependence F12.21 Alcohol withdrawal F10.939 Hypertensive crisis I16.9
--- NOTE | 2023-06-25 13:31 | ECG_ITS ---
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 Measurements Intervals [place] Rate: 74 P: 59 NM: 158 QRS: -37 QRSD: 88 T: 140 QT: 419 QTc: 466 Interpretive Statements SINUS RHYTHM LEFT AXIS DEVIATION [QRS AXIS < -30] MODERATE T-WAVE ABNORMALITY, CONSIDER LATERAL ISCHEMIA [-0.1+ mV T-WAVE IN I/aVL/V5/V6] Compared to ECG 06/24/2023 18:38:27 Left-axis deviation now present Possible ischemia now present Sinus tachycardia no longer present Incomplete right bundle-branch block no longer present T-wave abnormality still present Electronically Signed On 06-25-2023 16:49:12 CDT by Devin Arredondo M.D. [id number]
[2023-06-25 14:22] LABS: Troponin(5th) Baseline < 6 ng/L (0-10)
--- NOTE | 2023-06-25 15:45 | ECG_ITS ---
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 Measurements Intervals [place] Rate: 61 P: 15 CA: 151 QRS: -23 QRSD: 85 T: 223 QT: 433 QTc: 438 Interpretive Statements SINUS RHYTHM BORDERLINE LEFT AXIS DEVIATION [QRS AXIS < -20] ST DEVIATION AND MODERATE T-WAVE ABNORMALITY, CONSIDER ANTEROLATERAL ISCHEMIA [-0.1+ mV T-WAVE IN V3-V6] Compared to ECG 06/25/2023 13:58:10 No significant changes Electronically Signed On 06-25-2023 16:55:02 CDT by Devin Arredondo M.D. [id number]
[2023-06-25 17:52] LABS: Troponin 5 2HR Delta 0.00001 ABS# (0-10)
--- NOTE | 2023-06-25 18:37 | PC.NURSE ---
Pt has been sleeping all shift and would pretty much only get up to use the restroom or to eat. Boyfriend and another gentleman is here to see her now at this time.
[2023-06-25] MEDS: nicotine 14 mg Patch 1 PATCH TRANSDERMA (19:07)
--- NOTE | 2023-06-25 19:11 | PC.NURSE ---
Patient anxious about her health. Patient asked, Is there something physically wrong with me. They have been doing a lot of tests. I assured patient that she is fine. Patient appears to truly want to get help with her addictions. Patient is reporting tremors and anxiousness. Instructed patient on medications ordered. Patient verbalized understanding. Will continue to monitor.
--- NOTE | 2023-06-25 19:16 | PC.NURSE ---
Patient requested nicotine patch. Notified Dr Tate and received telephone order for Nicotine 14mg transdermal patch with was placed to right upper arm/shoulder.
--- NOTE | 2023-06-25 19:17 | W.PM.PSYCONS ---
Providers/Reason for Consult Consulting Physican/Specialty*: Néstor De MD Reason for Consult*: suicidal ideation Attending Physician: Dakota Tate MD Primary Care Provider: Luis Felipe Rodriguez MD Psych Consult HPI History of Present Illness Kari Sawyer is a 32 year old female with a history of generalized anxiety disorder, major depressive disorder and a history of alcohol dependence admitted to the cardiac stabilization unit with reports of having consumed 20-30 shots of alcohol on a daily basis with a significant history of alcohol withdrawal to the point of having seizures and intubation in the past. The patient attested positive for methamphetamine and endorsed using methamphetamine prior to admission there. The patient had reported having previous trials of managing inpatient treatment for her substance use several years ago and stated that she had wanted to receive detox services and in order to ensure being placed in this safe situation she had stated that she was suicidal. She had stated that she had never been suicidal and is motivated to receive help for her alcohol use. She had reported continued alcohol consumption despite significant adverse consequences with increase in tolerance and significant withdrawal symptoms.The patient reports that she wishes to go to a rehabilitation center in [place] at [facility] Inpatient psychiatric history: Patient had reported previous hospitalizations on psychiatric unit associated with her alcohol use. Outpatient psychiatric history: She reported currently receiving outpatient treatment for depression and generalized anxiety disorder. Current medications: Effexor XR 75 mg daily, losartan/hydrochlorothiazide legal history: None reported drug and alcohol history: Multiple substance abuse issues including methamphetamine and alcohol with a history of alcohol-related withdrawals. She had reported both inpatient and outpatient substance abuse treatment the past. Social history: Patient had reported that she had been homeless for an extended period of time. Meds Home Medications and Allergies Home Medications Medication Instructions Recorded Confirmed Last Taken Type venlafaxine 75 mg capsule,extended 75 mg PO QAM 30 days #30 caps 12/25/20 06/24/23 Unknown Rx release 24 hr losartan 50 mg-hydrochlorothiazide 1 tab PO DAILY 06/24/23 06/24/23 Unknown History 12.5 mg tablet Allergies Allergy/AdvReac Type Severity Reaction Status Date / Time No Known Allergies Allergy Verified 07/31/20 14:14 Current Medications Current Medications Generic Name Dose Route Start Last Admin Trade Name Freq PRN Reason Stop Dose Admin Chlordiazepoxide 25 mg 06/25/23 09:30 06/25/23 17:52 Chlordiazepoxide 25 Mg Capsule PO 25 mg Q8H FLAVIO Administration Clonidine HCl 0.1 mg 06/25/23 11:25 06/25/23 17:52 Clonidine 0.1 Mg Tablet PO 0.1 mg BID FLAVIO Administration Enoxaparin Sodium 40 mg 06/24/23 21:03 06/24/23 21:20 Enoxaparin 40 Mg/0.4 Ml Syringe SUBCUT 40 mg Q24H FLAVIO Administration Folic Acid 1 mg 06/25/23 09:00 06/25/23 09:49 Folic Acid 1 Mg Tablet PO 1 mg DAILY FLAVIO Administration Hydrochlorothiazide 12.5 mg 06/25/23 09:00 06/25/23 09:49 Hydrochlorothiazide 25 Mg Tablet PO 12.5 mg DAILY FLAVIO Administration Sodium Chloride 1,000 mls @ 75 mls/hr 06/24/23 21:03 06/25/23 12:44 Sodium Chloride 0.9% IV 75 mls/hr .[id number] FLAVIO Administration Lorazepam 2 mg 06/24/23 21:03 06/25/23 19:07 Lorazepam 2 Mg/Ml Inj 1 Ml IVP 2 mg PRN PRN Administration WITHDRAWAL Protocol Losartan Potassium 50 mg 06/25/23 09:00 06/25/23 09:49 Losartan 50 Mg Tablet PO 50 mg DAILY FLAVIO Administration Metoprolol Tartrate 50 mg 06/25/23 09:00 06/25/23 09:49 Metoprolol Tartrate 50 Mg Tablet PO 50 mg BID@0900,2100 FLAVIO Administration Multivitamins Therapeutic 1 tab 06/25/23 09:00 06/25/23 09:49 Multivitamin Therapeutic Tablet PO 1 tab DAILY FLAVIO Administration Nicotine 1 patch 06/25/23 18:46 06/25/23 19:07 Nicotine 14 Mg Patch TRANSDERMA 1 patch DAILY FLAVIO Administration Pantoprazole Sodium 40 mg 06/25/23 09:00 06/25/23 17:52 Pantoprazole 40 Mg Sdv IVP 40 mg BID FLAVIO Administration Thiamine Mononitrate 100 mg 06/25/23 09:00 06/25/23 09:49 Thiamine 100 Mg Tablet PO 100 mg DAILY FLAVIO Administration Venlafaxine HCl 75 mg 06/25/23 06:00 06/25/23 05:14 Venlafaxine Er (24hr) 75 Mg Capsule PO 75 mg QAM FLAVIO Administration PFSH NPU PFSH: Medical History Anxiety and depression 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 ] Quit status (tobacco/nicotine): not considering quitting Second hand smoke exposure: Yes Current gender identity: Female Mental Status Exam MSE Comments: Patient had a ariana complexion. She continued to appear somewhat tremulous with intermittent eye contact. She was in and out of consciousness that she fell asleep multiple times during the interview. Her speech was slow and slurred with decreased volume. Her mood was described as confused. Her affect appeared dysphoric. Her thought process was linear but derailed later. She denied any homicidal or suicidal ideation. She did not appear to be responding to internal stimuli. Was no clear evidence of delusional thinking. Her attention span appeared impaired. She was alert and oriented to person and place but not date. Her recent and remote memory appeared limited at this time. Her insight and judgment appeared limited. Her impulse control was poor. Vitals/I&O/Wt Last Vital Signs Temp 98.0 F 06/25/23 19:11 Pulse 72 06/25/23 19:11 Resp 16 06/25/23 19:11 BP 143/98 06/25/23 19:11 Pulse Ox 100 06/25/23 05:00 O2 Del Method Room Air 06/25/23 19:11 06/25/23 06/25/23 06/25/23 06:59 14:59 22:59 Intake Total 1959 660 / 2620 Balance 1959 660 / 2620 Weight last 48 hrs Weight 76.839 kg Weight 76.839 kg Weight 74.843 kg Data NPU 06/25/23 04:34 06/25/23 04:34 A&P Assessment and plan (1) Alcohol withdrawal: (2) KAITLIN (generalized anxiety disorder): (3) MDD (major depressive disorder): (4) Alcohol dependence: Plan 32-year-old female currently in treatment for alcohol withdrawal with no clear suicidal or homicidal ideation. She does not appear to be in need of any inpatient psychiatric history of regarding her safety and appears to be engaged in the good decision to attempt to receive care and intermediate to treat her significant alcohol addiction and methamphetamine abuse. Continue alcohol withdrawal protocol. Continue Effexor XR as prescribed. Attestations NPU Medical Necessity Statement*: inpatient psychiatric hospitalization not recommended at this time. Coding Level of Care Code Acute Code for [facility] [place] Fwd Diagnoses Alcohol withdrawal F10.939 KAITLIN (generalized anxiety disorder) F41.1 MDD (major depressive disorder) F32.9 Alcohol dependence F10.20
[2023-06-25] MEDS: enoxaparin 40 mg/0.4 mL Syringe SUBCUT (20:44)
[2023-06-25 20:55] LABS: Troponin 5 6HR Delta 0.00001 ng/L (0-12)
[2023-06-26] VITALS (8 sets, daily range): BP systolic 122–143; BP diastolic 81–107; PULSE 73–79; RESP 15–16; TEMP 36.6–36.8
[2023-06-26] MEDS: chlordiazePOXIDE 25 mg Capsule PO ×2 (01:35→09:45)
[2023-06-26] MEDS: sodium chloride 0.9% 1,000 ML 75 ML IV (01:35)
[2023-06-26 05:21] LABS: Basophils # 0.1 10^3/uL (0.0-0.1); Basophils % 0.8 %; Eosinophils # 0.4 10^3/uL (0.0-0.8); Eosinophils % 6.3 %; Hematocrit 38.9 % (36-47); Lymphocytes % 31.9 %; Mean Corpuscular HGB Conc 33.2 g/dL (30-55); Mean Corpuscular Volume 99.5 fl (85-98); Mean Platelet Volume 10.2 fL (7.4-10.4); Monocytes # 0.3 10^3/uL (0.2-0.9); Neutrophils # 3.53 10^3/uL (1.8-7.7); Neutrophils % 56.7 %; Nucleated Red Blood Cells % 0 %; Platelet Count 211 10^3/cmm (157-399); Red Blood Count 3.91 10^6/uL (3.85-5.65); Red Cell Distribution Width 12.4 % (12.1-15.1); White Blood Count 6.23 10^3/uL (3.29-11.43)
[2023-06-26] MEDS: venlafaxine ER (24HR) 75 mg Capsule PO (05:49)
[2023-06-26 05:56] LABS: Alanine Aminotransferase 164 U/L (0-33); Albumin Level 3.8 g/dL (3.5-5.2); Alkaline Phosphatase 177 U/L (35-105); Anion Gap 12.7 (5-19); Aspartate Amino Transferase 229 U/L (0-32); Blood Urea Nitrogen 12 mg/dL (6-20); Calcium 8.4 mg/dL (8.5-10.5); Carbon Dioxide 26 mmol/L (22-29); Chloride 101 mmol/L (98-107); Globulin 2.7 g/dL (1.3-4.6); Glomerular Filtration Rate 82.1 mL/min (90-130); Glucose 105 mg/dL (65-115); Osmolality Calculated 282 mOsm/kg (285-295); Phosphorus 2.4 mg/dL (2.5-4.5); Potassium 3.7 mmol/L (3.5-5.1); Sodium 136 mmol/L (136-145); Total Bilirubin 1.1 mg/dL (0.15-1.2); Total Protein 6.5 g/dL (6.6-8.7)
[2023-06-26] MEDS: pantoprazole 40 mg SDV IVP (09:43)
[2023-06-26] MEDS: hydroCHLOROthiazide 25 mg Tablet 12.5 MG PO ×2 (09:43→11:22)
[2023-06-26] MEDS: cloNIDine 0.1 mg Tablet 0.100000000000000006 MG PO (09:44)
[2023-06-26] MEDS: multivitamin therapeutic Tablet 1 TAB PO (09:45)
[2023-06-26] MEDS: folic acid 1 mg Tablet PO (09:45)
[2023-06-26] MEDS: metoprolol tartrate 50 mg Tablet PO (09:45)
[2023-06-26] MEDS: losartan 50 mg Tablet PO (09:45)
[2023-06-26] MEDS: thiamine 100 mg Tablet PO (09:45)
[2023-06-26] MEDS: amlodipine 10 mg Tablet PO (10:59)
--- NOTE | 2023-06-26 11:15 | PM.DCS ---
Discharge Providers Date of Admission: 06/24/23 19:37 Date of Discharge: June 26, 2023 Attending Provider at Admission: Yadiel Agee MD Attending Provider at Discharge: Dakota Tate MD Primary Care Provider: Luis Felipe Rodriguez MD Diagnoses at Discharge Discharge Diagnosis (1) Alcohol withdrawal: Status: Acute (2) KAITLIN (generalized anxiety disorder): Status: Acute (3) MDD (major depressive disorder): Status: Acute (4) Alcohol dependence: Status: Acute Reason for Visit Reason for Visit: SI Hospital Course Hospital Course Kari Sawyer is a 32 year old female who is trying to go to crisis center in [place], she is in contact with Mr. Attila Tadeo who has recommended her to go to the [facility] but want detox before her admission. Patient is stating that she is drinking 20-30 shots of strawberry 99 almost daily basis never had any significant withdrawal in the past to the point of seizure or intubation. She is endorsing to use of marijuana and methamphetamine. She snorts meth last use was on Friday night. Last alcoholic drink was today she took 2 shots before coming to the hospital, she also endorsed suicidal ideation but stating that she made the statement to get into neuropsychiatric unit for detox. She does not have a house, living with a friend, at the time of evaluation systolic pressure 158, diastolic 109 mmHg tachycardic heart rate 113 sinus tachycardia Clinically looks dehydrated Drug screen positive for methamphetamine and THC, D-dimer unremarkable Patient presented to [facility] for alcohol withdrawal, managed on a Librium, CIWA scores minimal, discharged on a Librium taper For hypertensive crisis, managed with blood pressure medications, discharged on clonidine 0.1 twice daily, hydrochlorothiazide 25 mg once daily, losartan 50 mg daily, metoprolol 50 mg twice daily, Norvasc 10 mg daily, follow-up with primary care provider as outpatient for blood pressure check For patient's transaminitis, follow-up with primary care provider as outpatient for following liver function Patient was advised to abstain from alcohol consumption, discharged, patient is going to follow-up with outpatient alcohol rehab program Patient was advised to abstain from methamphetamine use Patient was strongly advised to quit smoking, morbidity mortality discussed - We are discharging you on several blood pressure medications, that could be tetratogenic (harmful) to a , please use an effective form of control to prevent ? Please abstain from alcohol consumption ? Please use Librium taper as prescribed, ? Please see your primary care provider in 1 to 2 weeks for recheck blood pressure ? For your elevated liver function please see your primary care provider and recheck liver function Physical Exam Const: COMMON NORMALS: no acute distress and patient oriented x3 Resp: COMMON NORMALS: normal respiratory effort, No retractions, No use of accessory muscles and clear to auscultation bilaterally AUSCULTATION: clear to auscultation bilaterally Cardio: COMMON NORMALS: regular rate, regular rhythm, S1 normal heart sound present and S2 normal heart sound present RATE: regular rate RHYTHM: regular rhythm HEART SOUNDS: S1 normal heart sound present and S2 normal heart sound present GI: COMMON NORMALS: Normal to inspection, nondistended, normoactive bowel sounds present and non-tender Extremity: COMMON NORMALS: no pedal edema Neuro: COMMON NORMALS: patient oriented x3 Psych: COMMON NORMALS: mental status grossly normal Discharge Data Studies Completed and Pending Completed Studies During Hospitalization Category Date Time Status US abdomen limited [id number] Routine Ultrasound 06/25/23 08:19 Completed Pending at discharge Category Date Time Status Complete Blood Count w/Auto AM LABS Lab 06/27/23 04:00 Ordered Complete Blood Count w/Auto AM LABS Lab 06/28/23 04:00 Ordered Comprehensive Metabolic Panel AM LABS Lab 06/27/23 04:00 Ordered Comprehensive Metabolic Panel AM LABS Lab 06/28/23 04:00 Ordered HEP ACUTE [Hepatitis Acute Panel] Routine Lab 06/26/23 11:05 Ordered Magnesium AM LABS Lab 06/27/23 04:00 Ordered Magnesium AM LABS Lab 06/28/23 04:00 Ordered Phosphorus AM LABS Lab 06/27/23 04:00 Ordered Phosphorus AM LABS Lab 06/28/23 04:00 Ordered Laboratory Results WBC 6.23 10^3/uL (3.29-11.43) 06/26/23 04:52 RBC 3.91 10^6/uL (3.85-5.65) 06/26/23 04:52 Hgb 12.90 g/dL (11.27-16.99) 06/26/23 04:52 Hct 38.9 % (36-47) 06/26/23 04:52 MCV 99.5 fl (85-98) H 06/26/23 04:52 MCH 33.0 pg (27-33) 06/26/23 04:52 MCHC 33.2 g/dL (30-55) 06/26/23 04:52 RDW 12.4 % (12.1-15.1) 06/26/23 04:52 Plt Count 211 10^3/cmm (157-399) 06/26/23 04:52 MPV 10.2 fL (7.4-10.4) 06/26/23 04:52 Neut % (Auto) 56.7 % 06/26/23 04:52 Lymph % (Auto) 31.9 % 06/26/23 04:52 [place] % (Auto) 4.0 % 06/26/23 04:52 Eos % (Auto) 6.3 % 06/26/23 04:52 Baso % (Auto) 0.8 % 06/26/23 04:52 Neut # (Auto) 3.53 10^3/uL (1.8-7.7) 06/26/23 04:52 Lymph # (Auto) 2.0 10^3/uL (0.8-4.8) 06/26/23 04:52 [place] # (Auto) 0.3 10^3/uL (0.2-0.9) 06/26/23 04:52 Eos # (Auto) 0.4 10^3/uL (0.0-0.8) 06/26/23 04:52 Baso # (Auto) 0.1 10^3/uL (0.0-0.1) 06/26/23 04:52 Nucleated RBC % (auto) 0 % 06/26/23 04:52 Nucleated RBCs # 0.0 /100WBC 06/26/23 04:52 D-Dimer 0.36 ug/mLFEU (0-0.59) 06/24/23 18:21 Sodium 136 mmol/L (136-145) 06/26/23 04:52 Potassium 3.7 mmol/L (3.5-5.1) 06/26/23 04:52 Chloride 101 mmol/L (98-107) 06/26/23 04:52 Carbon Dioxide 26 mmol/L (22-29) 06/26/23 04:52 Anion Gap 12.7 (5-19) 06/26/23 04:52 BUN 12 mg/dL (6-20) 06/26/23 04:52 Creatinine 0.8 mg/dL (0.5-0.9) 06/26/23 04:52 GFR Calculation 82.1 mL/min (90-130) L 06/26/23 04:52 Glucose 105 mg/dL (65-115) 06/26/23 04:52 Calculated Osmolality 282 mOsm/kg (285-295) L 06/26/23 04:52 Calcium 8.4 mg/dL (8.5-10.5) L 06/26/23 04:52 Phosphorus 2.4 mg/dL (2.5-4.5) L 06/26/23 04:52 Magnesium 2.0 mg/dL (1.7-2.3) 06/26/23 04:52 Total Bilirubin 1.1 mg/dL (0.15-1.2) 06/26/23 04:52 AST 229 U/L (0-32) H 06/26/23 04:52 ALT 164 U/L (0-33) H 06/26/23 04:52 Alkaline Phosphatase 177 U/L (35-105) H 06/26/23 04:52 Troponin T Baseline < 6 ng/L (0-10) 06/25/23 13:54 Troponin T 120 Minute 6.00 ng/L (0-10) 06/25/23 16:17 Delta Troponin T 0.39336 ABS# (0-10) 06/25/23 16:17 Troponin T Hi Sens 6Hr 6.00 ng/L (0-10) 06/25/23 20:17 Troponin T Hi Sens 6Hr Delta 0.03799 ng/L (0-12) 06/25/23 20:17 C-Reactive Protein 3.0 mg/L (0.0-4.9) 06/25/23 04:34 Total Protein 6.5 g/dL (6.6-8.7) L 06/26/23 04:52 Albumin 3.8 g/dL (3.5-5.2) 06/26/23 04:52 Globulin 2.7 g/dL (1.3-4.6) 06/26/23 04:52 Vitamin B12 365 pg/mL (232-1245) 06/24/23 18:21 TSH 0.70 uIU/mL (0.27-4.20) 06/24/23 18:21 HCG, Qual Negative (Negative) 06/24/23 17:20 Salicylates < 0.3 mg/dL (3-10) L 06/24/23 18:21 Urine Opiates Screen Negative ng/mL (Negative) 06/24/23 17:20 Acetaminophen < 5.0 ug/mL (10-30) L 06/24/23 18:21 Ur Barbiturates Screen Negative ng/mL (Negative) 06/24/23 17:20 Ur Phencyclidine Scrn Negative ng/mL (Negative) 06/24/23 17:20 Ur Amphetamines Screen Positive ng/mL (Negative) H 06/24/23 17:20 U Benzodiazepines Scrn Negative ng/mL (Negative) 06/24/23 17:20 Urine Cocaine Screen Negative ng/mL (Negative) 06/24/23 17:20 U Marijuana (THC) Screen Positive ng/mL (Negative) H 06/24/23 17:20 Ethyl Alcohol < 10 mg/dL (0-10) 06/24/23 18:21 Vitals Last Vital Signs Temp 98.2 F 06/26/23 09:21 Pulse 77 06/26/23 06:14 Resp 16 06/26/23 05:50 BP 141/100 06/26/23 09:45 Pulse Ox 100 06/25/23 05:00 O2 Del Method Room Air 06/26/23 05:50 Discharge Plan Discharge Patient Disposition: Home Condition: Stable Prescriptions: New clonidine HCl 0.1 mg Tablet 0.1 mg PO BID 30 Days Qty: 60 0RF chlordiazepoxide HCl 25 mg Capsule See Rx Instructions .ROUTE .COMPLEX Qty: 9 0RF Rx Instructions: 1 tab twice daily for 3 days, 1 tab daily for 3 days amlodipine 10 mg Tablet 10 mg PO DAILY 30 Days Qty: 30 0RF losartan 50 mg Tablet 50 mg PO DAILY 30 Days Qty: 30 0RF metoprolol tartrate 50 mg Tablet 50 mg PO BID@0900,2100 30 Days Qty: 60 0RF hydrochlorothiazide 25 mg Tablet 25 mg PO DAILY 30 Days Qty: 30 0RF Vitamin B-1 (mononitrate) 100 mg Tablet 100 mg PO DAILY 30 Days Qty: 30 0RF Thera 400 mcg Tablet 1 tab PO DAILY 30 Days Qty: 30 0RF Continued venlafaxine 75 mg capsule,extended release 24hr 75 mg PO QAM 30 Days Qty: 30 1RF Discontinued losartan-hydrochlorothiazide 50-12.5 mg tablet 1 tab PO DAILY Discharge Orders: Discharge Order (Routine); Ordered 06/26/23 Ordered By: Dakota Tate Referrals: Luis Felipe Rodriguez MD [Primary Care Provider] - 07/09/23 1:45 pm Discharge Diet: Cardiac Discharge Activity: Resume usual activity Patient Instructions: Chlordiazepoxide/Clidinium (By mouth) (Librax), Methyldopa/Hydrochlorothiazide (By mouth), Metoprolol (By mouth) (Lopressor, Toprol XL), Clonidine (By mouth) (Catapres, Kapvay, Kapvay Dose Pack), Thiamine (By mouth) ([facility] Vitamin B1, Nature's..., Multivitamins, Adult Formula (By mouth) (Daily Multiple Vitamins,..., Amlodipine (By mouth) (Hypertenipine-2.5, Norvasc, Norliqva), Losartan (By mouth) (Cozaar), How to Stop Smoking (DC), Cigarette Smoking and Your Health (GEN), Abuse of Alcohol (ED), Hypertension (GEN), Alcohol Dependence (DC), Opioid Safety Activity Restrictions/Additional Instructions: - We are discharging you on several blood pressure medications, that could be tetratogenic (harmful) to a , please use an effective form of control to prevent ? Please abstain from alcohol consumption ? Please use Librium taper as prescribed, ? Please see your primary care provider in 1 to 2 weeks for recheck blood pressure ? For your elevated liver function please see your primary care provider and recheck liver function Discharge Attestations Time Spent in Discharge Care*: greater than 30 min Time Spent in Smoking Cessation: more than 10 minutes Quality Metrics Clinical Quality Measures [ No reported AMI, CVA or VTE this stay] Coding Level of Care Code 77998 Total time (in minutes) for Discharge: 45 Diagnoses Alcohol withdrawal F10.939 KAITLIN (generalized anxiety disorder) F41.1 MDD (major depressive disorder) F32.9 Alcohol dependence F10.20
[2023-06-26 12:53] LABS: Hepatitis A Antibody IgM Non-Reactive (Nonreactive); Hepatitis B Core IgM Non-Reactive (Nonreactive); Hepatitis B Surface Antigen Non-Reactive (Nonreactive); Hepatitis C Virus Antibody Reactive (Nonreactive)
--- NOTE | 2023-06-26 13:44 | PC.NURSE ---
discharge instructions given and explained.pt verb understanding of instructions.medications provided by meds to beds program.discharged ambulatory to exit at this time.
[2023-06-27 14:04] LABS: HEP C RNA Viral Load Quant <1.18 NOT DETECTED Log IU/mL (NOT DETECTED); HEP C RNA Viral Load Quant <15 NOT DETECTED IU/mL (NOT DETECTED)
== END 2023-06-26 13:46 | disposition home or self-care (01) | DRG 897 ==
LOC: ER 17:44 → CSU 19:37
PROVIDERS: Admitting Provider Internal Medicine; Emergency Provider Emergency Medicine; PCP Family Medicine; Visit Provider Family Medicine
DX: F10.139 Alcohol abuse with withdrawal, unspecified (principal); I16.9 Hypertensive crisis, unspecified; F15.20 Other stimulant dependence, uncomplicated; Z59.01 Sheltered homelessness; F12.20 Cannabis dependence, uncomplicated; F11.10 Opioid abuse, uncomplicated; E86.0 Dehydration; F41.1 Generalized anxiety disorder; F32.9 Major depressive disorder, single episode, unspecified; F17.210 Nicotine dependence, cigarettes, uncomplicated; R00.0 Tachycardia, unspecified; R25.1 Tremor, unspecified
CPT/HCPCS: 36415; 76705; 80048; 80053; 80074; 80306; 80307; 81025; 82607; 83735; 84100; 84443; 84484; 85025; 85378; 86140; 87522; 93005; 96372; 96374; 96375; 96376; 99285; C9113; J1650; J2060; J3411; J3490; J7030

== ENCOUNTER 2023-12-17 06:40 | Emergency (ER) | payer BC, MEDICAID, SELFPAY ==
[2023-12-17] VITALS (7 sets, daily range): BP systolic 160–179; BP diastolic 107–135; PULSE 89–113; RESP 18; TEMP 36.7; O2SAT 96–100; BMI 28.3
--- NOTE | 2023-12-17 06:47 | W.ED.ABDPA2 ---
HPI - Abdominal Pain General: Chief Complaint: Abdominal Pain Stated Complaint: left side stomach pain Time Seen by Provider: 12/17/23 06:42 History of Present Illness: 32-year-old female presents emergency room complaining of severe left-sided abdominal pain. CT indicated for upper abdominal pain on the left states it began about an hour ago. She denies any history of renal stones. She has been very nauseated but has not vomited. She has a known history of heavy alcohol use. She denies any dysuria urgency or frequency no hematochezia melena hematemesis or coffee-ground emesis. She has had issues in the past with cannabinoid hyperemesis syndrome. Associated Symptoms: Reports GI cramping and nausea; Denies chills, dysuria and fever(s) Related Data Date of Last Menstrual Period: 12/03/23 Previous Rx's Medication Instructions Recorded chlordiazepoxide HCl 25 mg capsule See Rx Instructions .Route 06/26/23 .COMPLEX #9 caps venlafaxine 75 mg capsule,extended 75 mg PO QAM 30 days #30 caps 06/26/23 release 24 hr ciprofloxacin HCl 500 mg tablet 500 mg PO BID #20 tabs 12/17/23 (Cipro) hydrocodone 5 mg-acetaminophen 325 1 tab PO Q6H PRN pain #20 tabs 12/17/23 mg tablet promethazine 25 mg tablet 25 mg PO Q6H PRN nausea and 12/17/23 vomiting #20 tabs tamsulosin 0.4 mg capsule 0.4 mg PO DAILY #30 caps 12/17/23 Allergies Allergy/AdvReac Type Severity Reaction Status Date / Time No Known Allergies Allergy Verified 12/17/23 06:46 Review of Systems Const: Denies: fever(s) or chills Card: Denies: chest pain Resp: Denies: dyspnea GI: Reports: abdominal pain, nausea and GI cramping : Reports: flank pain; Denies: dysuria, urinary frequency or urinary urgency Musc: Denies: neck pain or back pain Skin/Breast: Denies: rash PFSH ED PFSH: Medical History Anxiety and depression Other correction (current) drug therapy Cannabis use disorder, moderate, in early remission, in controlled environment, dependence Opiate abuse, continuous Methamphetamine use disorder, severe KAITLIN (generalized anxiety disorder) MDD (major depressive disorder) Social History Smoking and tobacco/nicotine status: current every day tobacco/nicotine user cigarettes Packs smoked per day: 1 Years cigarettes smoked: 13 [ Other cigarette details: I am only allowed to have 3 a day but when I get out I will go back. ] Quit status (tobacco/nicotine): not considering quitting Second hand smoke exposure: Yes Current gender identity: Female Female Reproductive History: Date of last menstrual period: 12/03/23 Physical Exam Const: GENERAL APPEARANCE: cooperative ORIENTATION/CONSCIOUSNESS: Yes awake, Yes oriented to person, Yes oriented to place and Yes oriented to time HENMT: COMMON NORMALS: normocephalic, atraumatic and hearing grossly normal bilaterally HEAD & SCALP: normocephalic and atraumatic Resp: COMMON NORMALS: normal respiratory effort, No retractions, No use of accessory muscles and clear to auscultation bilaterally AUSCULTATION: clear to auscultation bilaterally Cardio: COMMON NORMALS: regular rate, regular rhythm and No murmurs present (Cardio) RATE: regular rate RHYTHM: regular rhythm GI: COMMON NORMALS: No hepatosplenomegaly present AUSCULTATION: Yes normoactive bowel sounds PALPATION: Yes Tenderness to palpation present (GI) Details: LUQ, No Guarding due to palpation present (GI) and Yes No hepatosplenomegaly present Extremity: COMMON NORMALS: normal to inspection, capillary refill normal, no clubbing, cyanosis or edema, no calf tenderness and no pedal edema Neuro: SENSORIUM/ORIENTATION: Yes oriented to person, Yes oriented to place and Yes oriented to time Skin: COMMON NORMALS: no rashes or lesions noted GENERAL SKIN EXAM: no rashes or lesions noted Course Vital Signs: Vital signs: Vital Signs Temperature 98.0 F 12/17/23 06:42 Pulse Rate 93 12/17/23 11:16 Respiratory Rate 18 12/17/23 09:30 Blood Pressure 160/107 12/17/23 11:16 Pulse Oximetry 100 12/17/23 11:16 Oxygen Delivery Me thod Room Air 12/17/23 10:37 MDM - Abdominal Pain Medical Decision Making Left nephrolithiasis. No evidence of acute pancreatitis. Pain is under control discharge patient home pain medications hydrocodone also gave Phenergan to use. Started on tamsulosin and straining urine. She has a mild cystitis we will start her on Cipro 500 twice daily and follow-up with urology return if pain uncontrolled or she develops fever Medical Records I reviewed the patient's medical records. Lab Data I reviewed the patient's lab results. 12/17/23 07:00 12/17/23 07:00 Labs/Radiology: Radiology Impressions Abdomen/Pelvis CT 12/17/23 06:53 IMPRESSION: Moderate left hydronephrosis secondary to a 0.3 cm left ureteropelvic junction stone. Chest X-Ray 12/17/23 06:54 IMPRESSION: No acute findings. Laboratory Results WBC 10.73 10^3/uL (3.29-11.43) 12/17/23 07:00 RBC 4.27 10^6/uL (3.85-5.65) 12/17/23 07:00 Hgb 14.10 g/dL (11.27-16.99) 12/17/23 07:00 Hct 41.0 % (36-47) 12/17/23 07:00 MCV 96.0 fl (85-98) 12/17/23 07:00 MCH 33.0 pg (27-33) 12/17/23 07:00 MCHC 34.4 g/dL (30-55) 12/17/23 07:00 RDW 12.6 % (12.1-15.1) 12/17/23 07:00 Plt Count 251 10^3/cmm (157-399) 12/17/23 07:00 MPV 10.0 fL (7.4-10.4) 12/17/23 07:00 Neut % (Auto) 75.1 % 12/17/23 07:00 Lymph % (Auto) 14.4 % 12/17/23 07:00 [place] % (Auto) 7.1 % 12/17/23 07:00 Eos % (Auto) 2.5 % 12/17/23 07:00 Baso % (Auto) 0.6 % 12/17/23 07:00 Neut # (Auto) 8.06 10^3/uL (1.8-7.7) H 12/17/23 07:00 Lymph # (Auto) 1.6 10^3/uL (0.8-4.8) 12/17/23 07:00 [place] # (Auto) 0.8 10^3/uL (0.2-0.9) 12/17/23 07:00 Eos # (Auto) 0.3 10^3/uL (0.0-0.8) 12/17/23 07:00 Baso # (Auto) 0.1 10^3/uL (0.0-0.1) 12/17/23 07:00 Nucleated RBC % (auto) 0 % 12/17/23 07:00 Nucleated RBCs # 0.0 /100WBC 12/17/23 07:00 Sodium 135 mmol/L (136-145) L 12/17/23 07:00 Potassium 3.9 mmol/L (3.5-5.1) 12/17/23 07:00 Chloride 99 mmol/L (98-107) 12/17/23 07:00 Carbon Dioxide 24 mmol/L (22-29) 12/17/23 07:00 Anion Gap 15.9 (5-19) 12/17/23 07:00 BUN 13 mg/dL (6-20) 12/17/23 07:00 Creatinine 0.8 mg/dL (0.5-0.9) 12/17/23 07:00 GFR Calculation 82.1 mL/min (90-130) L 12/17/23 07:00 Glucose 116 mg/dL (65-115) H 12/17/23 07:00 Calculated Osmolality 281 mOsm/kg (285-295) L 12/17/23 07:00 Calcium 9.4 mg/dL (8.5-10.5) 12/17/23 07:00 Magnesium 1.9 mg/dL (1.7-2.3) 12/17/23 07:00 Total Bilirubin 0.5 mg/dL (0.15-1.2) 12/17/23 07:00 AST 31 U/L (0-32) 12/17/23 07:00 ALT 21 U/L (0-33) 12/17/23 07:00 Alkaline Phosphatase 206 U/L (35-105) H 12/17/23 07:00 Creatine Kinase 56 U/L (26-192) 12/17/23 07:00 Total Protein 7.6 g/dL (6.6-8.7) 12/17/23 07:00 Albumin 4.1 g/dL (3.5-5.2) 12/17/23 07:00 Globulin 3.5 g/dL (1.3-4.6) 12/17/23 07:00 Lipase 18 U/L (13-60) 12/17/23 07:00 HCG, Qual Negative (Negative) 12/17/23 07:00 Urine Color Yellow (Yellow) 12/17/23 10:09 Urine Appearance Cloudy (CLEAR) A 12/17/23 10:09 Urine pH 7.5 (5-7) 12/17/23 10:09 Ur Specific [place] 1.029 (1.005-1.030) 12/17/23 10:09 Urine Protein Negative (Negative) 12/17/23 10:09 Urine Glucose (UA) Negative (Normal) 12/17/23 10:09 Urine Ketones Negative (Negative) 12/17/23 10:09 Urine Blood 3+ (Negative) A 12/17/23 10:09 Urine Nitrate Negative (Negative) 12/17/23 10:09 Urine Bilirubin Negative (Negative) 12/17/23 10:09 Urine Urobilinogen 0.2 mg/dL (Negative) 12/17/23 10:09 Ur Leukocyte Esterase 1+ (Negative) A 12/17/23 10:09 Urine RBC 21-50 /hpf (0-2) H 12/17/23 10:09 Urine WBC 11-20 /hpf (0-5) H 12/17/23 10:09 Ur Squamous Epith Cells 0-5 /hpf (0-5) 12/17/23 10:09 Amorphous Sediment Not Reportable 12/17/23 10:09 Urine Bacteria None seen /hpf (NONE) 12/17/23 10:09 Hyaline Casts 1.21 /lpf 12/17/23 10:09 All radiology interpretation(s) finalized by discharge Discharge Plan Discharge Patient Disposition: Home Clinical Impression: Nephrolithiasis, Cystitis Condition: Stable Prescriptions: New hydrocodone-acetaminophen 5-325 mg tablet 1 tab PO Q6H PRN (Reason: pain) Qty: 20 0RF promethazine 25 mg tablet 25 mg PO Q6H PRN (Reason: nausea and vomiting) Qty: 20 0RF tamsulosin 0.4 mg capsule 0.4 mg PO DAILY Qty: 30 0RF Cipro 500 mg tablet 500 mg PO BID Qty: 20 0RF No Action chlordiazepoxide HCl 25 mg Capsule See Rx Instructions .ROUTE .COMPLEX Qty: 9 0RF Rx Instructions: 1 tab twice daily for 3 days, 1 tab daily for 3 days venlafaxine 75 mg capsule,extended release 24hr 75 mg PO QAM 30 Days Qty: 30 1RF Discharge Orders: Discharge ED (Routine); Ordered 12/17/23 Ordered By: Rufino Fong Referrals: Luis Felipe Rodriguez MD [Primary Care Provider] - Discharge Diet: Usual diet Discharge Activity: Increase activity as tolerated Patient Instructions: Kidney Stones (ED), Urinary Tract Infection in Women (ED), How to Strain Your Urine (ED), Opioid Safety, Pain Management Activity Restrictions/Additional Instructions: Thank you for choosing [facility] for your healthcare needs today. It is very important that you follow up as instructed or that you return to the Emergency Department should you have concerns or if your condition changes or worsens in any way. You are seen today for left flank pain scan shows you have a kidney stone. There is also signs of a mild bladder infection. Recommend that you strain your urine. You are given hydrocodone and promethazine for pain nausea and vomiting. In addition you are given tamsulosin which helps a stone pass past. Because her signs of a small bladder infection also recommend you start on ciprofloxacin 1 tablet twice a day for 7 days. If you do catch the stone it should be submitted for pathology to analyzed. Case management make arrangements for you to have a Coding Level of Care Code ED Wash Operator for Mary Cedeño
--- NOTE | 2023-12-17 06:53 | CTR_ITS ---
PROCEDURE INFORMATION: Exam: CT Abdomen And Pelvis With Contrast Exam date and time: 12/17/2023 8:57 AM Age: 32 years old Clinical indication: Abdominal pain; Localized; Left; Additional info: Abd pain TECHNIQUE: Imaging protocol: Computed tomography of the abdomen and pelvis with contrast. Radiation optimization: All CT scans at this facility use at least one of these dose optimization techniques: automated exposure control; mA and/or kV adjustment per patient size (includes targeted exams where dose is matched to clinical indication); or iterative reconstruction. Contrast material: OMNI 350; Contrast volume: 100 ml; Contrast route: INTRAVENOUS (IV); COMPARISON: CT abdomen pelvis w con* [id number] 05/14/2022 1:44 AM RADIATION DOSE METRICS: Total DLP (mGy-cm): 677.63 FINDINGS: Lungs: Mild bibasilar atelectasis/scar. Liver: The liver is unremarkable in appearance. Gallbladder and biliary ducts: Gallbladder unremarkable in appearance without radio-opaque stone. No intra or extrahepatic biliary ductal dilation. Pancreas: Normal. No ductal dilation. Spleen: The spleen is normal in size and contour. Adrenal glands: Adrenal glands are unremarkable in appearance. Kidneys and ureters: Moderate left hydronephrosis secondary to a 0.3 cm left ureteropelvic junction stone. Delayed enhancement of left kidney when compared to the contralateral side. Stomach and bowel: Unremarkable. No obstruction. No mucosal thickening. Appendix: Visualized portions of the appendix are unremarkable. Intraperitoneal space: Small amount of pelvic ascites. Vasculature: Unremarkable. No abdominal aortic aneurysm. Lymph nodes: No abdominal or pelvic lymphadenopathy. Urinary bladder: Bladder unremarkable. Reproductive: Uterus present. Bones/joints: Stable nonspecific sclerosis around left sacroiliac joint. Soft tissues: Umbilical hernia containing fat. CT/CT abdomen pelvis w con* [id number] IMPRESSION: Moderate left hydronephrosis secondary to a 0.3 cm left ureteropelvic junction stone.
--- NOTE | 2023-12-17 06:54 | XRR_ITS ---
PROCEDURE INFORMATION: Exam: XR Chest Exam date and time: 12/17/2023 7:02 AM Age: 32 years old Clinical indication: Cough; Patient HX: PT would not hold still; Additional info: Dyspnea/cough TECHNIQUE: Imaging protocol: Radiologic exam of the chest. Views: 1 view. COMPARISON: CT abdomen pelvis w con* [id number] 05/14/2022 1:44 AM FINDINGS: Lungs: Unremarkable. No consolidation. Pleural spaces: Unremarkable. No pleural effusion. No pneumothorax. Heart/Mediastinum: No cardiomegaly. Question of right-sided aortic arch Bones/joints: Unremarkable. XR/XR chest 1V portable [id number] IMPRESSION: No acute findings.
[2023-12-17] MEDS: sodium chloride 0.9% 1,000 ML 999 ML IV ×2 (07:11→09:49)
[2023-12-17] MEDS: ondansetron 2 mg/ML SDV 2 mL 4 MG IVP (07:12)
[2023-12-17 07:13] LABS: Basophils # 0.1 10^3/uL (0.0-0.1); Basophils % 0.6 %; Eosinophils # 0.3 10^3/uL (0.0-0.8); Eosinophils % 2.5 %; Lymphocytes # 1.6 10^3/uL (0.8-4.8); Lymphocytes % 14.4 %; Mean Corpuscular HGB Conc 34.4 g/dL (30-55); Monocytes # 0.8 10^3/uL (0.2-0.9); Monocytes % 7.1 %; Neutrophils # 8.06 10^3/uL (1.8-7.7); Neutrophils % 75.1 %; Nucleated Red Blood Cells % 0 %; Platelet Count 251 10^3/cmm (157-399); Red Blood Count 4.27 10^6/uL (3.85-5.65); Red Cell Distribution Width 12.6 % (12.1-15.1); White Blood Count 10.73 10^3/uL (3.29-11.43)
[2023-12-17] MEDS: morphine 4 mg/mL SDV 1 mL IVP ×2 (07:14→09:30)
[2023-12-17 07:18] LABS: HCG, Serum Qual Negative (Negative)
[2023-12-17 07:25] LABS: Alanine Aminotransferase 21 U/L (0-33); Albumin Level 4.1 g/dL (3.5-5.2); Alkaline Phosphatase 206 U/L (35-105); Anion Gap 15.9 (5-19); Aspartate Amino Transferase 31 U/L (0-32); Blood Urea Nitrogen 13 mg/dL (6-20); Calcium 9.4 mg/dL (8.5-10.5); Carbon Dioxide 24 mmol/L (22-29); Chloride 99 mmol/L (98-107); Creatine Phosphokinase 56 U/L (26-192); Creatinine Clr Calc Pharmacy 98.1671; Globulin 3.5 g/dL (1.3-4.6); Glomerular Filtration Rate 82.1 mL/min (90-130); Glucose 116 mg/dL (65-115); Lipase 18 U/L (13-60); Magnesium 1.9 mg/dL (1.7-2.3); Osmolality Calculated 281 mOsm/kg (285-295); Potassium 3.9 mmol/L (3.5-5.1); Sodium 135 mmol/L (136-145); Total Bilirubin 0.5 mg/dL (0.15-1.2); Total Protein 7.6 g/dL (6.6-8.7)
[2023-12-17] MEDS: iohexol 350 mg/mL 500 mL Btl (per mL) IV (09:10)
[2023-12-17 10:47] LABS: Bilirubin Urine Negative (Negative); Blood Urine 3+ (Negative); Glucose Urine UA Negative (Normal); Ketones Urine Negative (Negative); Leukocyte Esterase Urine 1+ (Negative); Nitrate Urine Negative (Negative); Protein Urine Negative (Negative); Specific Gravity, Urine 1.029 (1.005-1.030); Urine Appearance Cloudy (CLEAR); Urine Color Yellow (Yellow); Urobilinogen Urine 0.2 mg/dL (Negative); pH Urine 7.5 (5-7)
[2023-12-17 10:50] LABS: Add Urine Microscopic? YES; Bacteria Urine None Seen /hpf; Hyaline Casts Urine 1.21 /lpf; RBC Urine 21-50 /hpf (0-2); Squamous Epithelial Cell Urine 0-5 /hpf (0-5)
[2023-12-17 10:52] LABS: Add Urine Culture? Yes
--- NOTE | 2023-12-18 08:15 | DCPLANNER ---
faxed referral packet to [facility] for er f/u
== END 2023-12-17 11:15 | disposition home or self-care (01) ==
PROVIDERS: Emergency Provider Family Medicine; PCP Family Medicine
DX: N13.2 Hydronephrosis with renal and ureteral calculous obstruction (principal); N30.90 Cystitis, unspecified without hematuria; F17.210 Nicotine dependence, cigarettes, uncomplicated
CPT/HCPCS: 71045; 74177; 80053; 81001; 82550; 83690; 83735; 84703; 85025; 87086; 87186; 96361; 96374; 96375; 96376; 99285; J2270; J2405; J7030

== ENCOUNTER 2024-03-09 23:01 | Emergency (ER) | payer BC, MEDICAID, SELFPAY ==
[2024-03-09 23:06] VITALS: BP 187/146; PULSE 116; RESP 18; TEMP 36.6; O2SAT 98
--- NOTE | 2024-03-09 23:16 | CTR_ITS ---
PROCEDURE INFORMATION: Exam: CT Head Without Contrast Exam date and time: 03/09/2024 11:33 PM Age: 33 years old Clinical indication: Injury or trauma; Other: Board fell and hit her in the top and back of the head; Blunt trauma (contusions or hematomas); Additional info: Head injury TECHNIQUE: Imaging protocol: Computed tomography of the head without contrast. Radiation optimization: All CT scans at this facility use at least one of these dose optimization techniques: automated exposure control; mA and/or kV adjustment per patient size (includes targeted exams where dose is matched to clinical indication); or iterative reconstruction. COMPARISON: No relevant prior studies available. RADIATION DOSE METRICS: Total DLP (mGy-cm): 1055.77 FINDINGS: Brain: No acute intracranial hemorrhage, abnormal extra-axial fluid collection, mass effect, or midline shift. Cerebral ventricles: The ventricular system is within normal limits of variation for the patient's age. Paranasal sinuses: Visualized paranasal sinuses are grossly unremarkable. No air fluid levels. Mastoid air cells: Visualized mastoid air cells are well aerated. Bones: No acute fracture. Soft tissues: Grossly unremarkable. CT/CT head wo con* [id number] IMPRESSION: No acute intracranial findings.
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
[2024-03-09 23:23] VITALS: BP 180/118; PULSE 112; O2SAT 98
[2024-03-09 23:50] VITALS: BP 173/119; PULSE 107; O2SAT 98
[2024-03-10 00:05] VITALS: BP 169/122; PULSE 103; O2SAT 97
== END 2024-03-10 00:06 | disposition home or self-care (01) ==
PROVIDERS: Emergency Provider Emergency Medicine; PCP Family Medicine
DX: S09.8XXA Other specified injuries of head, initial encounter (principal); X58.XXXA Exposure to other specified factors, initial encounter
CPT/HCPCS: 70450; 99284

== ENCOUNTER 2024-07-24 12:48 | Emergency (ER) | payer BC, MEDICAID, SELFPAY ==
[2024-07-24 12:50] VITALS: BP 174/126; PULSE 113; RESP 16; TEMP 37.2; O2SAT 100; BMI 27.4
--- NOTE | 2024-07-24 12:57 | ECG_ITS ---
[facility]: 2024[facility]24 Pat Name: Kari Sawyer Department: Room: Gender: Female Health And Nutrition Specialist: : 1990 Requested By: Rufino Temple Order Number: [id number] Madalyn MD: Mau Wolf M.D. Measurements Intervals [place] Rate: 100 P: 25 [place]: 161 QRS: -28 QRSD: 90 T: 47 QT: 341 QTc: 440 Interpretive Statements SINUS TACHYCARDIA BORDERLINE LEFT AXIS DEVIATION [QRS AXIS < -20] POSSIBLE RIGHT VENTRICULAR CONDUCTION DELAY [RSR (QR) IN V1/V2] NONSPECIFIC T-WAVE ABNORMALITY ABNORMAL RHYTHM ECG Compared to ECG 06/25/2023 15:45:33 Sinus rhythm no longer present Possible ischemia no longer present T-wave abnormality still present Electronically Signed On 07-24-2024 13:36:15 CDT by Mau Wolf M.D. [email or web address] [id number]
--- NOTE | 2024-07-24 12:59 | ED_ITS ---
HPI - Chest Pain 2 General: Chief Complaint: Chest Pain Stated Complaint: HTN Time Seen by Provider: 07/24/24 12:51 History of Present Illness: 33-year-old female with a history of hyp ertension presents emergency room in custody of [facility]. She is in custody currently it has been a few weeks since she has had any of her medications. . She has a headache has some palpitations as well. She is unsure what her usual antihypertensives are. Associated symptoms: Reports palpitations; Deny abdominal pain, dyspnea or fever(s) Related Data Previous Rx's ?Medication ?Instructions ?Recorded amlodipine 5 mg tablet 5 mg PO DAILY #30 tabs 07/24 metoprolol tartrate 25 mg tablet 25 mg PO BID #60 tabs 07/24/24 sulfamethoxazole 800 1 tab PO BID 7 days #14 tabs 07/24/24 mg-trimethoprim 160 mg tablet (Bactrim DS) Allergies Allergy/AdvReac Type Severity Reaction Status Date / Time No Known Allergies Allergy Verified 03/09/24 23:10 Review of Systems 2 Const: Denies: fever(s) or chills Card: Reports: chest pain and palpitations Resp: Denies: dyspnea GI: Denies: abdominal pain : Denies: dysuria, urinary frequency or urinary urgency Musc: Denies: neck pain or back pain Skin/Breast: Denies: rash PFSH ED 2 PFSH: Medical History Anxiety and depression Other care home (current) drug therapy Cannabis use disorder, moderate, in early remission, in controlled environment, dependence Opiate abuse, continuous Methamphetamine use disorder, severe KAITLIN (generalized anxiety disorder) MDD (major depressive disorder) Social History Smoking and tobacco/nicotine status: current every day tobacco/nicotine user cigarettes Packs smoked per day: 1 Years cigarettes smoked: 13 [ Other cigarette details: I am only allowed to have 3 a day but when I get out I will go back. ] Quit status (tobacco/nicotine): not considering quitting Second hand smoke exposure: Yes Current gender identity: Female Physical Exam 2 Const: COMMON NORMALS: no acute distress GENERAL APPEARANCE: cooperative and comfortable ORIENTATION/CONSCIOUSNESS: Yes awake, Yes oriented to person, Yes oriented to place and Yes oriented to time HENMT: COMMON NORMALS: normocephalic, atraumatic and hearing grossly normal bilaterally HEAD & SCALP: normocephalic and atraumatic Resp: COMMON NORMALS: normal respiratory effort, No retractions, No use of accessory muscles and clear to auscultation bilaterally AUSCULTATION: clear to auscultation bilaterally Cardio: COMMON NORMALS: regular rate, regular rhythm and No murmurs present (Cardio) RATE: regular rate RHYTHM: regular rhythm GI: COMMON NORMALS: Soft to palpation and No hepatosplenomegaly present A USCULTATION: Yes normoactive bowel sounds PALPATION: Yes Soft to palpation, No Tenderness to palpation present (GI), No Guarding due to palpation present (GI) and Yes No hepatosplenomegaly present Extremity: COMMON NORMALS: normal to inspection, capillary refill normal, no clubbing, cyanosis or edema, no calf tenderness and no pedal edema Neuro: SENSORIUM/ORIENTATION: Yes oriented to person, Yes oriented to place and Yes oriented to time Skin: COMMON NORMALS: no rashes or lesions noted GENERAL SKIN EXAM: no rashes or lesions noted Course 2 Vital Signs: Vital signs: Vital Signs Temperature 98.9 F 07/24/24 12:50 Pulse Rate 113 H 07/24/24 12:50 Respiratory Rate 16 07/24/24 12:50 Blood Pressure 174/126 07/24/24 12:50 Pulse Oximetry 100 07/24/24 12:50 Oxygen Delivery Me thod Room Air 07/24/24 12:50 MDM - Chest Pain Medical Decision Making Cardiac enzymes negative EKG did not show any acute changes. Laboratory test unremarkable blood pressure improved after treatment. Will discharge back into custody of the deputies. Will discharge with 5 mg daily of amlodipine 25 mg twice daily of metoprolol. Should recheck blood pressure within the next week. Additionally patient did have an incidental finding of cystitis she was given Rocephin here and discharged with Bactrim DS 1 p.o. twice daily for 7 days Medical Records I reviewed the patient's medical records. Lab Data I reviewed the patient's lab results. 07/24/24 13:20 07/24/24 13:20 Radiology Impressions Chest X-Ray 07/24/24 13:08 IMPRESSION: No acute findings. Laboratory Results WBC 7.37 10^3/uL (3.29-11.43) 07/24/24 13:20 RBC 4.94 10^6/uL (3.85-5.65) 07/24/24 13:20 Hgb 15.50 g/dL (11.27-16.99) 07/24/24 13:20 Hct 46.1 % (36-47) 07/24/24 13:20 MCV 93.3 fl (85-98) 07/24/24 13:20 MCH 31.4 pg (27-33) 07/24/24 13:20 MCHC 33.6 g/dL (30-55) 07/24/24 13:20 RDW 12.6 % (12.1-15.1) 07/24/24 13:20 Plt Count 289 10^3/cmm (157-399) 07/24/24 13:20 MPV 9.8 fL (7.4-10.4) 07/24/24 13:20 Neut % (Auto) 71.8 % 07/24/24 13:20 Lymph % (Auto) 19.9 % 07/24/24 13:20 [place] % (Auto) 7.3 % 07/24/24 13:20 Eos % (Auto) 0.4 % 07/24/24 13:20 Baso % (Auto) 0.5 % 07/24/24 13:20 Neut # (Auto) 5.28 10^3/uL (1.8-7.7) 07/24/24 13:20 Lymph # (Auto) 1.5 10^3/uL (0.8-4.8) 07/24/24 13:20 [place] # (Auto) 0.5 10^3/uL (0.2-0.9) 07/24/24 13:20 Eos # (Auto) 0.0 10^3/uL (0.0-0.8) 07/24/24 13:20 Baso # (Auto) 0.0 10^3/uL (0.0-0.1) 07/24/24 13:20 Nucleated RBC % (auto) 0 % 07/24/24 13:20 Nucleated RBCs # 0.0 /100WBC 07/24/24 13:20 Sodium 135 mmol/L (136-145) L 07/24/24 13:20 Potassium 4.0 mmol/L (3.5-5.1) 07/24/24 13:20 Chloride 100 mmol/L (98-107) 07/24/24 13:20 Carbon Dioxide 24 mmol/L (22-29) 07/24/24 13:20 Anion Gap 15.0 (5-19) 07/24/24 13:20 BUN 14 mg/dL (6-20) 07/24/24 13:20 Creatinine 1.0 mg/dL (0.5-0.9) H 07/24/24 13:20 GFR Calculation 63.1 mL/min (90-130) L 07/24/24 13:20 Glucose 97 mg/dL (65-115) 07/24/24 13:20 Calculated Osmolality 280 mOsm/kg (285-295) L 07/24/24 13:20 Calcium 9.2 mg/dL (8.5-10.5) 07/24/24 13:20 Total Bilirubin 0.6 mg/dL (0.15-1.2) 07/24/24 13:20 AST 22 U/L (0-32) 07/24/24 13:20 ALT 30 U/L (0-33) 07/24/24 13:20 Alkaline Phosphatase 157 U/L (35-105) H 07/24/24 13:20 Troponin T Baseline < 6 ng/L (0-10) 07/24/24 13:20 Troponin T 120 Minute 6.00 ng/L (0-10) 07/24/24 15:17 Delta Troponin T 0.10701 ABS# (0-10) 07/24/24 15:17 Total Protein 8.1 g/dL (6.6-8.7) 07/24/24 13:20 Albumin 4.5 g/dL (3.5-5.2) 07/24/24 13:20 Globulin 3.6 g/dL (1.3-4.6) 07/24/24 13:20 HCG, Qual Negative (Negative) 07/24/24 13:20 Urine Color Yellow (Yellow) 07/24/24 13:39 Urine Appearance Turbid (CLEAR) A 07/24/24 13:39 Urine pH 6.0 (5-7) 07/24/24 13:39 Ur Specific [place] 1.023 (1.005-1.030) 07/24/24 13:39 Urine Protein 1+ (Negative) A 07/24/24 13:39 Urine Glucose (UA) Negative (Normal) 07/24/24 13:39 Urine Ketones Trace (Negative) 07/24/24 13:39 Urine Blood Trace (Negative) A 07/24/24 13:39 Urine Nitrate Negative (Negative) 07/24/24 13:39 Urine Bilirubin Negative (Negative) 07/24/24 13:39 Urine Urobilinogen 1.0 mg/dL (Negative) 07/24/24 13:39 Ur Leukocyte Esterase 3+ (Negative) A 07/24/24 13:39 Urine RBC 0-2 /hpf (0-2) 07/24/24 13:39 Urine WBC >100 /hpf (0-5) H 07/24/24 13:39 Ur Squamous Epith Cells 51-100 /hpf (0-5) 07/24/24 13:39 Amorphous Sediment Not Reportable 07/24/24 13:39 Urine Bacteria 4+ /hpf (NONE) H 07/24/24 13:39 Hyaline Casts 9.07 /lpf 07/24/24 13:39 All radiology interpretation(s) finalized by discharge EKG Data EKG 1: Interpretation: EKG July 24, 2024 1300. Sinus tachycardia heart rate of [address] changes noted T waves upright. [place] interval 161 QT 341 Discharge Plan Discharge Patient Disposition: Home Clinical Impression: Hypertension, Cystitis Condition: Stable Prescriptions: New amlodipine 5 mg tablet 5 mg PO DAILY Qty: 30 0RF metoprolol tartrate 25 mg tablet 25 mg PO BID Qty: 60 0RF sulfamethoxazole-trimethoprim [Bactrim DS] 800-160 mg tablet 1 tab PO BID 7 Days Qty: 14 0RF Discharge Orders: Discharge ED (Routine); Ordered 07/24/24 Ordered By: Rufino Fong Referrals: Luis Felipe Rodriguez MD [Primary Care Provider] - Discharge Diet: Usual diet Discharge Activity: Resume usual activity Patient Instructions: Opioid Safety, Pain Management Activity Restrictions/Additional Instructions: Thank you for choosing [facility] for your healthcare needs today. It is very important that you follow up as instructed or that you return to the Emergency Department should you have concerns or if your condition changes or worsens in any way. You are seen in the emergency room with elevated blood pressure. Laboratory tests are unremarkable EKG did not show any acute changes. Will discharge you home on amlodipine 5 mg daily and Toprol-XL 25 mg daily follow-up with your primary care doctor within the next 7 to 10 days to recheck your blood pressure Print Language: Nepali Coding Level of Care Code ED Plasma Center Technician for Mary Cedeño
--- NOTE | 2024-07-24 13:08 | XRR_ITS ---
PROCEDURE INFORMATION: Exam: XR Chest Exam date and time: 07/24/2024 1:39 PM Age: 33 years old Clinical indication: Chest pressure; Chest pain; HTN; Headache; Dyspnea/cough TECHNIQUE: Imaging protocol: Radiologic exam of the chest. Views: 1 view. COMPARISON: CR (CHEST, ) 12/17/2023 7:02 AM FINDINGS: Lungs: Unremarkable. No consolidation. Pleural spaces: Unremarkable. No pleural effusion. No pneumothorax. Heart/Mediastinum: Unremarkable. No cardiomegaly. Bones/joints: Unremarkable. XR/XR chest 1V portable [id number] IMPRESSION: No acute findings.
[2024-07-24] MEDS: amlodipine 10 mg Tablet PO (13:17)
[2024-07-24] MEDS: labetalol 5 mg/mL SDV 20mL 10 MG IVP (13:25)
[2024-07-24] MEDS: hyDRALAzine 20 mg/mL INJ 1 mL 5 MG IVP (13:25)
[2024-07-24 13:27] VITALS: BP 192/129; PULSE 100; O2SAT 100
[2024-07-24 13:38] LABS: Basophils % 0.5 %; Eosinophils % 0.4 %; Hematocrit 46.1 % (36-47); Lymphocytes # 1.5 10^3/uL (0.8-4.8); Lymphocytes % 19.9 %; Mean Corpuscular HGB Conc 33.6 g/dL (30-55); Mean Corpuscular Hemoglobin 31.4 pg (27-33); Mean Corpuscular Volume 93.3 fl (85-98); Mean Platelet Volume 9.8 fL (7.4-10.4); Monocytes # 0.5 10^3/uL (0.2-0.9); Monocytes % 7.3 %; Neutrophils # 5.28 10^3/uL (1.8-7.7); Neutrophils % 71.8 %; Nucleated Red Blood Cells % 0 %; Platelet Count 289 10^3/cmm (157-399); Red Blood Count 4.94 10^6/uL (3.85-5.65); Red Cell Distribution Width 12.6 % (12.1-15.1); White Blood Count 7.37 10^3/uL (3.29-11.43)
--- NOTE | 2024-07-24 13:46 | PC.NURSE ---
manual BP requested by physician, 172/114.
[2024-07-24 13:49] LABS: Bilirubin Urine Negative (Negative); Blood Urine Trace (Negative); Glucose Urine UA Negative (Normal); Ketones Urine Trace (Negative); Leukocyte Esterase Urine 3+ (Negative); Nitrate Urine Negative (Negative); Protein Urine 1+ (Negative); Specific Gravity, Urine 1.023 (1.005-1.030); Urine Appearance Turbid (CLEAR); Urine Color Yellow (Yellow)
[2024-07-24 13:51] LABS: HCG, Serum Qual Negative (Negative)
[2024-07-24 13:55] LABS: Add Urine Microscopic? YES; Bacteria Urine 4+ /hpf; Hyaline Casts Urine 9.07 /lpf; RBC Urine 0-2 /hpf (0-2); Squamous Epithelial Cell Urine 51-100 /hpf (0-5); WBC Urine >100 /hpf (0-5)
[2024-07-24 13:56] LABS: Alanine Aminotransferase 30 U/L (0-33); Albumin Level 4.5 g/dL (3.5-5.2); Alkaline Phosphatase 157 U/L (35-105); Aspartate Amino Transferase 22 U/L (0-32); Blood Urea Nitrogen 14 mg/dL (6-20); Calcium 9.2 mg/dL (8.5-10.5); Carbon Dioxide 24 mmol/L (22-29); Chloride 100 mmol/L (98-107); Globulin 3.6 g/dL (1.3-4.6); Glomerular Filtration Rate 63.1 mL/min (90-130); Glucose 97 mg/dL (65-115); Osmolality Calculated 280 mOsm/kg (285-295); Sodium 135 mmol/L (136-145); Total Bilirubin 0.6 mg/dL (0.15-1.2); Total Protein 8.1 g/dL (6.6-8.7)
[2024-07-24 13:57] VITALS: BP 170/110; PULSE 97; O2SAT 100
[2024-07-24 14:01] LABS: Creatinine Clr Calc Pharmacy 76.6682
[2024-07-24] MEDS: hyDRALAzine 20 mg/mL INJ 1 mL 10 MG IVP (14:23)
[2024-07-24] MEDS: cefTRIAXone 1,000 mg SDV 1000 MG IVP (14:24)
[2024-07-24 14:27] VITALS: BP 174/109; PULSE 99; RESP 12; O2SAT 100
[2024-07-24 14:57] VITALS: BP 152/113; PULSE 106; RESP 11; O2SAT 100
[2024-07-24] MEDS: metoprolol tartrate 25 mg Tablet PO (15:21)
[2024-07-24 15:27] LABS: Troponin(5th) Baseline < 6 ng/L (0-10)
[2024-07-24 15:39] LABS: Troponin 5 2HR Delta 0.00001 ABS# (0-10)
[2024-07-24 15:59] VITALS: BP 148/114; PULSE 91; RESP 10; O2SAT 100
== END 2024-07-24 15:59 | disposition home or self-care (01) ==
PROVIDERS: Emergency Provider Family Medicine; PCP Family Medicine
DX: I10 Essential (primary) hypertension (principal); N30.90 Cystitis, unspecified without hematuria; F17.210 Nicotine dependence, cigarettes, uncomplicated
CPT/HCPCS: 71045; 80053; 81001; 84484; 84703; 85025; 93005; 96374; 96375; 96376; 99285; J0360; J0696; J3490; J9999

== ENCOUNTER 2024-10-19 21:10 | Emergency (ER) | payer BC, MEDICAID, SELFPAY ==
--- OUTSIDE RECORDS SUMMARY | 2018-09-30 10:41 | XMS_ITS | Continuity of Care Document ---
Author Organization [facility] Address [address] [id number]-[place] [address] Phone Care Team Providers Care Service Delivery Supervisor Name Role Phone Health, Community Unavailable Unavailable [...] Diagnoses Date Provider Providers Copied on Encounter [facility], [id number]- [place], [place], [address], [place] tel:[phone] [place] [phone] No Information 9 [facility]. [address], [place], [address], [place]. tel:[phone] OFFICE/OUTPA TIENT VISIT EST [facility], [id number]- [place], [address], [place] tel:[phone] [place] [address] (chief complaint) Early stage of pregnancyHistory of drug useEncntr for accordion repairer exam (general) (routine) w/o abn findingsEncntr for suprvsn of normal preg, unsp, first trimesterEncounter for screening, unspecifiedHepatit is C antibody positive in blood 9 Rosalia Wood. [address] [place], [address], [place]. tel:[phone] Referring Provider: Israel Lindsey, [address] [facility], [address]. tel:[phone] [facility], [id number], [address], [place] tel:[phone] [facility] F1 No Information 9 Rosalia Wood. [address] [place], [address], [place]. tel:[phone] Referring Provider: Israel Lindsey, [address] [place], [address]. tel:[phone] [facility], [id number] [place], [address], [place] tel:[phone] Family Medicine F1 Amenorrhea, unspecified 9 Roya Christina. [address] [place], [place], [address], [place]. tel:[phone] Referring Provider: Carri Pryor , [address] [place], [address] . tel:[phone] [facility], [id number] [place], [address], [place] tel:[phone] Dental General [facility] Encounter for dental exam and cleaning w/o abnormal findings 9 Arthur Romero. [address], [place], [address], [place]. tel:[phone] Referring Provider: Nick Gibson, [address] [place], [address] . tel:[phone] [facility], [id number] [place], [address], [place] tel:[phone] Dental [facility] Encounter for dental exam and cleaning w/o abnormal findings 8 Anli Story. [address] [place], [address], [place]. tel:[phone] Referring Provider: Jez Copeland, [address] [place], [address]. tel:[phone] Family History Family Member Type Diagnosis Age At Onset Sister Problem (finding) Alive and well Father Problem (finding) Mother Problem (finding) Alive and well Payers Payer name Insurance type Covered alliance party ID Authoriza tion(s) No Information Social History [...] RNA, QN PCR W/rflx To Genotype, LIPA ([id number]), Sent on: Sent Future Order: Lab Order CMP ([id number]), Sen t on: Sent Future Order: Lab Order HCV Ab ([id number]), Sent on: Sent History Of Present Illness [...] today to confirm , she went to [facility] for vaginal bleeding on 07/27/2018 and was [...]
--- OUTSIDE RECORDS SUMMARY | 2024-10-19 21:16 | XMS_ITS | Encounter Summary ---
Author Organization [employer] [facility] Address [address] [place] [address] Care Team Providers Care Zoning Technician Name Role Phone Unavailable Primary Care Provider Unavailabl e Encounter Details Date Type Department Care Team (Latest Contact Info) Description 01/17/2000 Outpatient Historical HIS [facility] Kevon Rojas MD [address] [place] [id number] Injury, other and unspecified, hand, except finger (Primary Dx) Social History Tobacco Use Types Packs/Day Years Used Date Smoking Tobacco: Never Assessed Comments Unknown Sex and Gender Information Value Date Recorded Sex Assigned at Not on file 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
--- OUTSIDE RECORDS SUMMARY | 2024-10-19 21:16 | XMS_ITS | Clinical Summary ---
Author Organization [facility] Address [address] [place] [address] Phone Care Team Providers Care Candy Dipper Name Role Phone Unavailable Primary Care Provider Unavailabl e Allergies No known active allergies Medications ibuprofen (MOTRIN) 600 mg tablet Take 1 Tablet (600 mg) by mouth every 6 hours as needed for Pain (For pain secondary to inflammation). 40 Tablet 8 Active Active Problems Problem Noted Date Diagnosed Date Labor and delivery, indication for care 09/20/19 18 PROM (premature rupture of membranes) 09/19/2017 32 weeks gestation of 09/19/2017 History of substance abuse 09/19/2017 History of hepatitis C 09/19/2017 Immunizations Immunization Administration Dates Next Due (ADACEL/BOOSTRIX)(10 YR UP) TDAP VACCINE, 0.5ML, IM 09/22/2017(Deferred: - pt refused this morning) (M-M-R II/PRIORIX)(12 MO UP) MEASLES, MUMPS AND RUBELLA VIRUS VACCINE, 0.5 ML IM/SUBCUT 09/22/2017(Deferred: - pt refused this morning) (TDVAX)(7 YRS UP) TETANUS AN D DIPHTHERIA TOXOIDS, ADSORBED (2 LF OF TETANUS TOXOID AND 2 LF OF DIPHTHERIA TOXOID), 0.5ML (PF), IM 10/11/2004 Hepatitis A Vaccine 07/11/2005,10/11/2004 Hepatitis B Vaccine 07/31/1999,04/13/1999,1998 Social History Tobacco Use Types Packs/Day Years Used Date Smoking Tobacco: Every Day Cigarettes Smokeless Tobacco: Never Alcohol Use Standard Drinks/Week Comments No 0 (1 standard drink = 0.6 oz pur e alcohol) Comments No Sex and Gender Information Value Date Recorded Sex Assigned at Not on file 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 Gender Identity Not on file Sexual Orientation Not on file Last Filed Vital Signs Vital Sign Reading Time Taken Comments Blood Pressure 101/47 04/04/2018 4:41 AM TRAM INSPECTOR Pulse 82 04/04/2018 3:51 AM TRAM INSPECTOR Temperature 37.6 C (99.6 F) 04/04/2018 4:41 AM TRAM INSPECTOR Respiratory Rate 16 04/04/2018 4:41 AM TRAM INSPECTOR Oxygen Saturation 99% 04/04/2018 4:41 AM TRAM INSPECTOR Inhaled Oxygen Concentration - - Weight 67.1 kg (148 lb) 04/04/2018 1:23 AM TRAM INSPECTOR Height 162.6 cm (5' 4 ) 04/04/2018 1:23 AM TRAM INSPECTOR Body Mass Index 25.4 04/04/2018 1:23 AM TRAM INSPECTOR Plan of Treatment Health Maintenance Due Date Last Done Comments DTAP/TDAP/TD VACCINES (2 - Tdap) 10/12/2004 10/11/2004 HPV/Cotest (21-29) 2009 CERVICAL CANCER SCREENING 2018 HPV/Cotest (30-65) 2018 PAP SMEAR 2018 INFLUENZA VACCINE (#1) 2024 HEPATITIS B VACCINES Completed 07/31/1999, 04/13/1999, 02/20/1999 HPV VACCINES Aged Out No longer eligi ble based on patient's age to complete this topic Insurance FORMERLY [facility] MEDICAID Advance Directives For more information, please contact: [phone] * Full Code (Latest Code Status on File) Date Activated Date Inactivated Comments 09/19/2017 10:15 PM 09/22/2017 5:18 PM * Full Code Date Activated Date Inactivated Comments 09/19/2017 7:47 PM 09/19/2017 10:14 PM
--- OUTSIDE RECORDS SUMMARY | 2024-10-19 21:16 | XMS_ITS | Encounter Summary ---
Author Organization [employer] [facility] Address [address] [place] [address] Care Team Providers Care Date Night Caregiver Name Role Phone Unavailable Primary Care Provider Unavailabl e Encounter Details Date Type Department Care Team (Latest Contact Info) Description 01/11/2000 Outpatient Historical HIS [facility] Kevon Rojas MD [address] [place] [phone] Open wound of hand except finger(s) alone, without mention of complication (Primary Dx); Posttraumatic wound infection not elsewhere classified; Attention to dressings and sutures Social History Tobacco Use Types Packs/Day Years Used Date Smoking Tobacco: Never Assessed Comments Unknown Sex and Gender Information Value Date Recorded Sex Assigned at Not on file 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
--- OUTSIDE RECORDS SUMMARY | 2024-10-19 21:16 | XMS_ITS | Encounter Summary ---
Author Organization [employer] [facility] Address [address] [place] [address] Care Team Providers Care Assessment Rn Name Role Phone Unavailable Primary Care Provider Unavailabl e Encounter Details Date Type Department Care Team (Latest Contact Info) Description 01/14/2000 Outpatient Historical HIS [facility] Kevon Rojas MD [address] [place] [phone] Posttraumatic wound infection not elsewhere classified (Primary Dx); Attention to dressings and sutures Social History Tobacco Use Types Packs/Day Years Used Date Smoking Tobacco: Never Assessed Comments Unknown Sex and Gender Information Value Date Recorded Sex Assigned at Not on file 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
--- OUTSIDE RECORDS SUMMARY | 2024-10-19 21:16 | XMS_ITS | Encounter Summary ---
Author Organization [employer] [facility] Address [address] [place] [address] Care Team Providers Care Boxing Machine Operator Name Role Phone Unavailable Primary Care Provider Unavailabl e Encounter Details Date Type Department Care Team (Latest Contact Info) Description 01/08/1999 Outpatient Historical HIS [facility] Jasonbelen Bogdan Stap[place] NO ADDRESS ON FILE Otalgia, unspecified (Primary Dx) Social History Tobacco Use Types Packs/Day Years Used Date Smoking Tobacco: Never Assessed Comments Unknown Sex and Gender Information Value Date Recorded Sex Assigned at Not on file 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
--- OUTSIDE RECORDS SUMMARY | 2024-10-19 21:16 | XMS_ITS | Encounter Summary ---
Author Organization [employer] [employer] [facility] Address [address] [place] [address] Care Team Providers Care [employer] Name Role Phone Unavailable Primary Care Provider Unavailabl e Encounter Details Date Type Department Care Team (Latest Contact Info) Description 03/23/1999 Outpatient Historical [facility] Nick Tracy Jr., MD [address] [place] [id number] Volume depletion (Primary Dx); Acute upper respiratory infections of unspecified site Social History Tobacco Use Types Packs/Day Years Used Date Smoking Tobacco: Never Assessed Comments Unknown Sex and Gender Information Value Date Recorded Sex Assigned at Not on file Legal 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
--- OUTSIDE RECORDS SUMMARY | 2024-10-19 21:17 | XMS_ITS | Clinical Summary ---
Author Organization [facility] Address [address] Attn: [place] [id number] Care Team Providers Care Machine Cloth Measurer Name Role Phone Unavailable Primary Care Provider Unavailabl e Allergies No known active allergies Medications ibuprofen (MOTRIN) 600 mg tablet Take 1 Tablet (600 mg) by mouth every 6 hours as needed for Pain (For pain secondary to inflammation). 40 Tablet 0 8 Active Active Problems Problem Noted Date Diagnosed Date Labor and delivery, indication for care 09/20/19 18 32 weeks gestation of 09/19/2017 PROM (premature rupture of membranes) 09/19/2017 History of substance abuse 09/19/2017 History of hepatitis C 09/19/2017 Immunizations Immunization Administration Dates Next Due (TDVAX)(7 YRS UP) TETANUS AN D DIPHTHERIA [...] = 0.6 oz pur e alcohol) Comments Unknown Sex and Gender Information Value Date Recorded Sex Assigned at Not on file Legal Sex Female 4:43 PM [employer] Gender Identity Not on file Sexual Orientation Not on file Last Filed Vital Signs Vital Sign Reading Time Taken Comments Blood Pressure 101/47 04/04/2018 4:41 AM [employer] Pulse 82 04/04/2018 3:51 AM [employer] Temperature 37.6 C (99.6 F) 04/04/2018 4:41 AM [employer] Respiratory Rate 16 04/04/2018 4:41 AM [employer] Oxygen Saturation - - Inhaled Oxygen Concentration - - Weight 67.1 kg (148 lb) 04/04/2018 1:23 AM [employer] Height 162.6 cm (5' 4 ) 04/04/2018 1:23 AM [employer] Body Mass Index 25.4 04/04/2018 1:23 AM [employer] Plan of Treatment Health Maintenance Due Date [...]
--- OUTSIDE RECORDS SUMMARY | 2024-10-19 21:17 | XMS_ITS | Data Portability ---
Author Organization [facility] Simon Castillo [facility] Address [address] [place] [address] Care Team Providers Care Manager Packaging Name Role Phone JASON RODRIGUEZ Primary Care Provider [phone] Assessment Encounter Date Assessment Date Assessment LastModified by Organization Details LastModified Time 03/03/2023 03/03/2023 Was seen by Michael, not walk in. [email or web address] Not available 05/11/2023 19:40:01 Plan of Treatment Reminders Order Date Submit Date Provider Last Modified By Organization Details Last Modified Time Details Appointments ANNUAL EXAM 2024 02:00P Flor Rodriguez MD Not available Not available Not available Lab SARS CoV 2 RNA, QL, nasophar ynx 2023 024 [email or web address] [facility] ([facility]), [address] [place], [address], 05/14/2023 18:36:28 rapid flu (A+B), PCR 2023 024 [email or web address] [facility] ([facility]), [address] [place], [address], 05/14/2023 18:36:29 chlamydi a + gonorrhe a DNA panel, unspecif ied specimen 2022 023 [facility], [address] [place] [address] [address] [place], [address], 03/10/2023 13:38:10 SARS CoV 2 RNA, QL, nasophar ynx 2022 023 [facility] ([facility]), [address] [place], [address], 03/03/2023 16:33:48 Referral None recorded . Procedures None recorded . Surgeries None recorded . Imaging None recorded . Medication Orders amlodipi ne 5 mg tablet 2024 025 [id number], [address] [facility], [facility] [address], [place], [address], 10/11/2024 17:21:02 metoprol ol tartrate 25 mg tablet 2024 025 [id number], [address] [facility], [address], [address], 10/11/2024 17:21:02 benzonat ate 100 mg capsule 2023 024 [address] [facility] [address] [id number], [address] [facility], [facility] [address], [place], [address], 10/11/2024 16:26:11 albutero l sulfate HFA 90 mcg/actu ation aerosol inhaler 2022 023 [address] [facility] [address] [id number], [address] [facility], [facility] [address], [address], 10/11/2024 16:26:00 cefdinir 300 mg capsule 2022 023 [id number], [address] [facility], [facility] [address], [address], 10/11/2024 16:25:17 losartan 50 mg-hydro chloroth iazide 12.5 mg tablet 2022 023 [id number], [address], [facility] [address], [address], 10/11/2024 16:26:30 Bactrim DS 800 mg-160 mg tablet 2022 023 [email or web address] [id number], [address], [facility] [address], [place], [address], 10/11/2024 16:22:12 ibuprofe n 800 mg tablet 2022 023 [email or web address] [id number], [address], [facility] [address], [place], [address], 10/11/2024 16:26:23 Patient TargetsNo targets recorded. Patient InstructionsNo instructions recorded. Reason for Referral None Reported. Results Created Date Observation Date Name Description Value Unit Range Abnormal Flag Note LastModifiedBy Organization Detail LastModifiedTime 03/03/2003/04/2023 CHLAM YDIA/ N. GONOR RHOEA E RNA, TMA, UROGE NITAL chlamydia trachomatis RNA, tma, urogenital DETECT ED not detect ed abnormal If resul ts do not corre late with clini dorie findi ngs, testi ng using an alter pawel molec ular targe t which ampli fies diffe rent abdirahman ic seque nces can be perfo rmed on the same sampl e for resul t confi rmati on withi n 7 days of sampl e recei pt or per perfo rming labor atory speci men reten tion polic y. Alter pawel targe t testi ng is avail able; [address] (C. trach omati s) [place] [address] (N. gonor rhoea e). Not Available [address], [address], 03/04/2023 12:15:24 03/03/20 23 03/04/2023 CHLAM YDIA/ N. GONOR RHOEA E RNA, TMA, UROGE NITAL neisseria gonorrhoeae RNA, tma, urogenital NOT DETECT ED not detect ed normal Not Available [facility] [address] [place] [address], [address], 03/04/2023 12:15:24 03/03/20 23 03/04/2023 JAGDEEP MARQUEZ/ Michelle GONOR RHOEA E RNA, TMA, UROGE NITAL comment The sherry tical perfo rmanc e thomas cteri stics of this assay , when used to test SureP ath(T M) speci mens have been deter mined by [facility]. The modif icati ons have not been clear ed or appro karthikeyan by the FDA. This assay has been valid ated pursu ant to the CLIA regul ation s and is used for clini dorie purpo ses. For addit ional melecior mervat garcia e refer to https ://ed ucati on.qu estLatina Researchers Network. StyleJam/f aq/FA Q154 (This link is being provi ded for infor dario mendoza/ nadia tripp l purpo ses only. ) Not Available [employer] [place] [address] [address], [place], [address], 03/04/2023 12:15:24 03/03/20 23 03/03/2023 SARS CoV 2 RNA, QL, nasop haryn x COVID negati ve Not Available [facility] ([facility]) [address] [place] [address], [address], 03/03/2023 16:13:45 05/14/19 24 05/14/2023 SARS CoV 2 RNA, QL, nasop haryn x COVID negati ve Not Available [facility] ([facility]) [address] [place] [address], [address], 05/14/2023 18:06:24 05/14/19 24 05/14/2023 rapid flu (A+B) , PCR Influenza A positi ve Not Available [facility] ([facility]) [address] [place] [address], [address], 05/14/2023 18:06:33 05/14/19 24 05/14/2023 rapid flu (A+B) , PCR Influenza B negati ve Not Available [facility] ([facility]) [address] [place], [address], 05/14/2023 18:06:33 Result Notes None recorded. Problems Name Problem SNOMED Code Status Onset Date Resolution Date Notes Provider Name and Address Organization Details Recorded Time Anxiety 13960672 Active 2022 ANXIETY; 3 5:29PM by Juju Conner, Office Visit; Promoted; acuity set as *; ERICKA steel [facility] 5 15:32:20 Bipolar I disorder 908625824 Active 2022 BIPOLAR I DISORDER; 3 5:29PM by Juju Conner, Office Visit; Promoted; acuity set as *; ERICKA steel [facility] 5 15:32:19 Obsessiv e-compul sive disorder 046264207 Active 2022 OCD (OBSESSIV E COMPULSIV E DISORDER) ; 3 5:29PM by Juju Conner, Office Visit; Promoted; acuity set as *; ERICKA steel [facility] 5 15:32:19 Drug abuse 67384767 Active 2022 HX OF INTRAVENO US DRUG USE, IN REMISSION ; Recorded 3 5:29PM by Juju Conner, Office Visit; Promoted; acuity set as *; ERICKA steel [facility] 5 15:32:19 Essashley l juan [place] 19539430 Active 2022 Jason Rodriguez MD [address] [place], [address], [facility] 5 17:17:34 Harmful pattern of use of alcohol 52477440 Active 2022 ERICKA steel [facility] 5 15:32:19 Sexually transmit daniel infectio us disease 3791593 Completed 202210/11/2024 ERICKA steel [facility], MurielLReganCRegan 5 15:32:29 Substanc e use disorder Active 2024 ERICKA steel [facility], MurielLTerese 5 17:23:17 Depressi ve disorder 76278265 Active 2022 Depressio n - Status is Inactive; 1 10:04AM by Ericka Brandon, Office Visit; Promoted; acuity set as *; ; Start Date : 1 DEPRESS ION; 3 5:29PM by Juju Conner, Office Visit; Promoted; acuity set as *; ERICKA steel [facility], MurielLTerese 5 15:32:19 Problem Notes None recorded. Procedures Surgical History Date Name Laterality Status Provider Name and Address Organization Details Recorded Time 02/10/2023 Incision/D rainage-Si mple completed Frankie Omer MD [address] [place] [address], [address], [facility] 02/10/2023 12:13:22 Imaging Results None recorded. Procedure Notes None recorded. Medical Equipment None Reported. Allergies No known drug allergies Medications Name Sig Start Date Stop Date Status Note LastModified by Organization Details LastModified Time losartan 50 mg tablet TAKE ONE TABLET BY MOUTH DAILY FOR 30 DAYS 10/11 completed Not Available Not Available Not Available clonidine HCl 0.1 mg tablet TAKE ONE TABLET BY MOUTH TWICE DAILY FOR 30 DAYS 10/11 completed Not Available Not Available Not Available venlafaxine ER 75 mg capsule,ext ended release 24 hr TAKE ONE CAPSULE BY MOUTH EVERY MORNING FOR 30 DAYS 10/11 completed Not Available Not Available Not Available doxycycline hyclate 100 mg capsule TAKE 1 CAPSULE BY MOUTH TWICE A DAY FOR 7 DAYS 10/11 completed Not Available Not Available Not Available ibuprofen 800 mg tablet TAKE 1 TABLET BY MOUTH THREE TIMES A DAY FOR 7 DAYS 10/11 completed Not Available Not Available Not Available hydrocodone 5 mg-acetamin ophen 325 mg tablet TAKE 1 TABLET BY MOUTH EVERY 6 HOURS NEEDED FOR PAIN 10/11 completed Not Available Not Available Not Available lisinopril 20 mg tablet TAKE 1 TABLET BY MOUTH EVERY DAY FOR 30 DAYS 10/11 completed Not Available Not Available Not Available thiamine HCl (vitamin B1) 100 mg tablet TAKE ONE TABLET BY MOUTH DAILY FOR 30 DAYS 10/11 completed Not Available Not Available Not Available amlodipine 5 mg tablet Take 1 tablet every day by oral route for 30 days. 2024 active Not Available Not Available Not Avai lable ciprofloxac in 500 mg tablet TAKE 1 TABLET BY MOUTH TWICE A DAY 10/11 completed Not Available Not Available Not Available sulfamethox azole 800 mg-trimetho prim 160 mg tablet TAKE 1 TABLET BY MOUTH TWICE DAILY FOR 7 DAYS 10/11 completed Not Available Not Available Not Available chlordiazep oxide 25 mg capsule TAKE ONE CAPSULE BY MOUTH TWICE DAILY FOR THREE DAYS, THEN ONE CAPSULE BY MOUTH DAILY FOR THREE DAYS 10/11 completed Not Available Not Available Not Available tamsulosin 0.4 mg capsule TAKE 1 CAPSULE BY MOUTH EVERY DAY 10/11 completed Not Available Not Available Not Available amlodipine 10 mg tablet TAKE ONE TABLET BY MOUTH DAILY FOR 30 DAYS 10/11 completed Not Available Not Available Not Available benzonatate 100 mg capsule Take 1 capsule 3 times a day by oral route as needed for 5 days. 10/11 completed Not Available Not Available Not Available promethazin e 25 mg tablet TAKE 1 TABLET BY MOUTH EVERY 6 HOURS NEEDED FOR NAUSEA AND VOMITING 10/11 completed Not Available Not Available Not Available metoprolol tartrate 50 mg tablet TAKE ONE TABLET BY MOUTH TWICE DAILY AT 9am AND 9pm FOR 30 DAYS 10/11 completed Not Available Not Available Not Available hydrochloro thiazide 25 mg tablet TAKE ONE TABLET BY MOUTH DAILY FOR 30 DAYS 10/11 completed Not Available Not Available Not Available gabapentin 100 mg capsule Take 1 capsule 3 times a day by oral route. active Not Available Not Available No t Available losartan 50 mg-hydrochl orothiazide 12.5 mg tablet TAKE 1 TABLET BY MOUTH EVERY DAY FOR 30 DAYS 10/11 completed Not Available Not Available Not Available cefdinir 300 mg capsule TAKE 1 CAPSULE BY MOUTH EVERY 12 HOURS FOR 10 DAYS 10/11 completed Not Available Not Available Not Available sertraline 50 mg tablet Take 1 tablet every day by oral route. active Not Available Not Available No t Available Ventolin HFA 90 mcg/actuati on aerosol inhaler INHALE 2 PUFFS BY MOUTH EVERY 4 HOURS NEEDED 10/11 completed Not Available Not Available Not Available metoprolol tartrate 25 mg tablet Take 1 tablet twice a day by oral route for 30 days. 2024 active Not Available Not Available Not Avai lable Tab-A-Db 400 mcg tablet TAKE ONE TABLET BY MOUTH DAILY FOR 30 DAYS 10/11 completed Not Available Not Available Not Available Vitals Date Recorded Body height Body mass index (BMI) Body weight Oxygen saturation Oxygen saturation in Arterial blood by Pulse oximetry Heart rate Respiratory rate Body temperature Systolic And Diastolic Provider Name and Address Organization Details Last Updated DateTime 4 162.56 cm 29.4 kg/m2 94077.3 g 98 % 98 % 97 /min 20 /min 97.7 [degF] 150/80 mm[Hg] Halley Arauz [facility] 4 17:50:15 Date Recorded Body weight Oxygen saturation Oxygen saturation in Arterial blood by Pulse oximetry Heart rate Systolic And Diastolic Provider Name and Address Organization Details Last Updated DateTime 5 28130.8 2 g 97 % 97 % 107 /min 182/120 mm[Hg] ERICKA BRANDON [facility] 5 16:29:22 Date Recorded Body height Body mass index (BMI) Body weight Body temperature Oxygen saturation Oxygen saturation in Arterial blood by Pulse oximetry Heart rate Systolic And Diastolic Provider Name and Address Organization Details Last Updated DateTime 3 162.56 cm 28.2 kg/m2 52106.8 5 g 98.6 [degF] 99 % 99 % 65 /min 170/89 mm[Hg] JUJU CONNER [facility] 3 10:19:25 Date Recorded Body height Body mass index (BMI) Body weight Oxygen saturation Oxygen saturation in Arterial blood by Pulse oximetry Heart rate Systolic And Diastolic Provider Name and Address Organization Details Last Updated DateTime 3 162.56 cm 28.3 kg/m2 42155.7 4 g 98 % 98 % 120 /min 160/100 mm[Hg] MARBIN HURST [facility] 3 15:59:20 Social History None recorded. Functional Status Question Answer Note LastModified by Organization D etails LastModified Time What is your level of alcohol consumption? Heavy avonallmen Information not available 03/03/2023 Mental Status None recorded. Family History Nothing Reported. Medical History No medical history recorded. Gynecological HistoryNo gynecological history recorded. Obstetrics History GPAL:G 0 P 0 0 0 0 Immunizations Vaccine Type Date Status Note Provider Nam e and Address Organization Details Recorded Time Influenza, split virus, trivalent, preservative 6 completed Not Available [facility] 11/02/2022 02:49:32 DTaP 9 completed Not Available [facility] 10/11/2024 16:21:00 polio, unspecified formulation 9 completed Not Available [facility] 10/11/2024 16:21:00 DTaP 0 completed Not Available [facility] 10/11/2024 16:21:00 polio, unspecified formulation 0 completed Not Available [facility] 10/11/2024 16:21:00 DTaP 0 completed Not Available [facility] 10/11/2024 16:21:00 polio, unspecified formulation 0 completed Not Available [facility] 10/11/2024 16:21:00 Hib, unspecified formulation 1 completed Not Available [facility] 10/11/2024 16:21:00 MMR 1 completed Not Available [facility] 10/11/2024 16:21:00 DTaP 1 completed Not Available [facility] 10/11/2024 16:21:00 polio, unspecified formulation 1 completed Not Available [facility] 10/11/2024 16:21:00 DTaP 5 completed Not Available [facility] 10/11/2024 16:21:00 MMR 5 completed Not [facility] 10/11/2024 16:21:00 Hep B, unspecified formulation 9 completed Not Available [facility] 10/11/2024 16:21:00 Hep B, unspecified formulation 0 completed Not Available [facility] 10/11/2024 16:21:00 Hep B, unspecified formulation 0 completed Not Available [facility] 10/11/2024 16:21:00 Td (adult), 2 Lf tetanus toxoid, preservative free, adsorbed 5 completed Not Available [facility] 10/11/2024 16:21:00 Hep A, ped/adol, 2 dose 5 completed Not Available [facility] 10/11/2024 16:21:00 Hep A, adult 6 completed Not Available [facility] 10/11/2024 16:21:00 HPV, quadrivalent 7 completed Not Available [facility] 10/11/2024 16:21:00 HPV, quadrivalent 7 completed Not Available [facility] 10/11/2024 16:21:00 HPV, quadrivalent 7 completed Not Available [facility] 10/11/2024 16:21:00 Tdap 4 completed Not Available [facility] 10/11/2024 16:21:00 Tdap 1 completed Not Available [facility] 10/11/2024 16:21:00 Past Encounters Encounter ID Performer Location Encounter Start Date Encounter Closed Date Diagnosis/Indication Diagnosis SNOMED-CT Code Diagnosis ICD10 Code Diagnosis Note [id number] Frankie Omer MD [facility] ([facility]) [address] [place] [phone] 12/10/2022 16:13:37 12/10/2022 17:34:20 Essential hypertension 52677081 I10 Pressure is significan tly elevated. We will start medication today. Patient was encouraged to follow-up with PCP next week with a log of blood pressure readings from home. Harmful pa ttern of use of alcohol 21599760 F10.10 Recommend cessation from alcohol use [id number] Frankie Omer MD [facility] ([facility]) [address] [place] [address] 5 02/10/2023 10:07:09 02/10/2023 14:30:03 Cellulitis of skin 623430644 L03.90 Patient does have significan t cellulitis of her toe. Pustule was lanced and small amount of pustular material was obtained. Encouraged follow-up if symptoms do not improve. [id number] GRISELDA TOMPKINS [facility] ([facility]) [address] [place] [address] 5 03/03/2023 15:31:35 05/11/2023 19:40:05 [id number] Jason Rodriguez MD [facility] ([facility]) [address] [place] [address] 5 03/03/2023 15:34:04 03/03/2023 17:26:16 Essential hypertension 49492546 I10 Acute sinusitis 01638125 J01.90 Tobacco user 550186722 Z 72.0 Bronchospasm 6329297 J98 .01 High risk sexual behavior 973487510 Z72.51 [id number] GRISELDA TOMPKINS [facility] ([facility]) [address] [place] [phone] 05/14/2023 17:26:35 05/14/2023 18:51:48 Cough 16283199 R05.9 COVID negative.F ilya A positive.F ilya B negative. Influenza A virus present 4533817907 08 J09.X2 Influenza A positive today. Patient does not qualify for Tamiflu due to symptoms being greater than 48 hours. Can take tylenol/ib uprofen as needed for pain. Recommend continuing Mucinex as needed. Encouraged to push fluids and quarantine until feeling better and fever free for 24 hours without the use of antipyreti cs. If severe SOB or chest pain occurs, should go to ED. Patient verbalizes understand ing. Edema of l ower extremity 595426219 R60.0 Recommende d checking labs today. Patient declines and states she will make appointmen t with PCP. Encouraged to increase water intake. Reassured with minimal edema noted today. If swelling and leg pain becomes severe, should go to ED. Patient verbalized understand ing. [id number] Jason Rodriguez MD [facility] ([facility]) [address] [place] [address] 10/11/2024 16:15:56 10/11/2024 17:23:12 Essential hypertension 32622300 I10 Substance use disorder 5892782306 F19.90 alcohol and drugs. She is in a recovery program. Health Concerns Section Related Observation LastModified by Organization Detai ls LastModified Time None Recorded Concern Status LastModified by Organization Details LastModified Time None Recorded Advance Directives Directive None Recorded Payers Insurance Date Sequence Insurance Name Policy Number Policy Swenson Covered Member ID Swenson Member ID Guarantor Name 10/11/2024 1 [place] Kari Sawyer [id number] Kari Sawyer 10/11/2024 1 [employer] [place]MED[place] REPLACEMENT - HMO) [id number] Kari Sawyer [id number] Kari Sawyer 10/11/2024 [place] [facility] (INSTITUTIONAL ) Kari Sawyer [id number] Kari Sawyer Notes Date Note Type Note Provider Name and Address Organization Details Recorded Time 02/10/2023 text/html Walk-in: Pt came in today with a bite on her right middle toe. Pts toe is swollen and red and states that the pain is radiating to her foot. Pt just noticed it yesterday. Frankie Omer MD [address] [place] [address], [phone], [facility] 02/10/2023 12:14:13 03/03/2023 text/html CoughReported bypatient.Quality:produ ctive Severity:worsening Context:smoker Associated Symptoms:no fever; no chills; no chest pain; no heartburn; no nausea; no vomiting; no edema;shortness of breathHypertension IM/FMReported bypatient.Quality:here for check-up Alleviating Factors:medication Self Care:smoker;not watching diet;not limiting alcohol intake Associated Symptoms:shortness of breath Jason Rodriguez MD [address] [place], [address], [facility]. 03/03/2023 16:26:40 05/14/2023 text/html Upper Respirator y SymptomsReported bypatient.Location:head Quality:productive cough;congested Severity:mild Duration:symptoms lasting less than 2 weeks Onset/Timing:gradual Context:sick contact Associated Symptoms:fatigue;mornin g cough;sore throat;chills Patient is a 32 year old female who presents to the walk in clinic today fever, body aches, chills, fatigue, and congestion. Patient reports symptoms for 4 days. Patient also reports bilateral ankle swelling and leg pain for 4 days. Reports she has not been drinking water but has been drinking gatorade. JOSE ALBERTO TOMPKINS-[place] [address] [place], [address], [facility] 05/14/2023 18:39:08 10/11/2024 text/html Has been off all of her BP meds for a while.Would like to have some paper work filled out today for housing. Jason Rodriguez MD [address] [place] [address], [phone], [facility] [place] 10/11/2024 17:21:50 OBGyn Episode No OBEpisode recorded.
[2024-10-19 21:21] VITALS: BP 109/70; PULSE 79; RESP 18; TEMP 36.7; O2SAT 98; BMI 25.7
[2024-10-19 21:40] VITALS: BP 95/73; PULSE 80; O2SAT 98
[2024-10-19 22:00] VITALS: BP 120/76; PULSE 79; O2SAT 98
--- NOTE | 2024-10-19 22:50 | W.ED.FALL ---
HPI - Fall General: Chief Complaint: Fall Stated Complaint: Scap on Back Time Seen by Provider: 10/19/24 21:58 History of Present Illness: 33-yo female with frequent ED visits for alcohol use disorder, mental-health concerns, and chronic headaches slipped on chen while walking near a [place] earlier today. She landed on her left flank, resulting in a 2 ? 6 cm abrasion and localized pain rated 7/10. She denies difficulty ambulating and has not noticed gross hematuria. Primary concern is confirmation of no serious injury. No prior analgesics taken today. Declines medication at present. 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 ] Quit status (tobacco/nicotine): not considering quitting Second hand smoke exposure: Yes Current gender identity: Female Physical Exam Const: COMMON NORMALS: no acute distress, patient oriented x3 and alert HENMT: COMMON NORMALS: normocephalic and atraumatic HEAD & SCALP: normocephalic and atraumatic Eye: COMMON NORMALS: Equal, round and reactive pupils present, EOMs intact bilaterally and no scleral icterus PUPIL: Yes Equal, round and reactive pupils present Resp: COMMON NORMALS: normal respiratory effort and No retractions Cardio: COMMON NORMALS: regular rate, regular rhythm and No murmurs present (Cardio) RATE: regular rate RHYTHM: regular rhythm GI: COMMON NORMALS: Normal to inspection, nondistended, normoactive bowel sounds present, Soft to palpation and non-tender PALPATION: Yes Soft to palpation Back/Pelvis: OTHER: Midline spine has no tenderness. No obvious deformity or tenderness of the spine or pelvis. Neuro: COMMON NORMALS: patient oriented x3 SENSORIUM/ORIENTATION: Yes alert Skin: OTHER: 2 x 6 cm area of abrasion to the left lower back with no underlying ecchymosis or tenderness. Iliac crest has no tenderness. Course Vital Signs: Vital signs: Vital Signs Temperature 98.1 F 10/19/24 21:21 Pulse Rate 79 10/19/24 22:00 Respiratory Rate 18 10/19/24 21:21 Blood Pressure 120/76 10/19/24 22:00 Pulse Oximetry 98 10/19/24 22:00 Oxygen Delivery Me thod Room Air 10/19/24 22:00 MDM - Fall Medical Decision Making Insert, patient has a small abrasion to the left lower back. She has no history of hematuria and no physical exam findings concerning for bony involvement or kidney fracture. She will be discharged in stable condition with primary care as needed. No radiology studies performed this visit Discharge Plan Discharge Patient Disposition: Home Clinical Impression: Abrasion of lower back Condition: Stable Prescriptions: No Action gabapentin 100 mg capsule 100 mg PO TID Qty: 90 1RF sertraline [Zoloft] 50 mg tablet 50 mg PO DAILY Qty: 30 1RF Discharge Orders: Discharge ED (Routine); Ordered 10/19/24 Ordered By: Kevon Bahena Referrals: Luis Felipe Rodriguez MD [Primary Care Provider, [facility]] Discharge Diet: Usual diet Discharge Activity: Increase activity as tolerated Patient Instructions: Pain Management, Patient Portal & Phyllis Instructions Print Language: Albanian Coding Level of Care Code ED Sintering Press Operator for Mary Cedeño
== END 2024-10-19 22:18 | disposition home or self-care (01) ==
PROVIDERS: Emergency Provider Student in an Organized Health Care Education/Training Program; PCP Family Medicine
DX: S30.810A Abrasion of lower back and pelvis, initial encounter (principal); W01.0XXA Fall on same level from slipping, tripping and stumbling without subsequent striking against object, initial encounter; Y92.828 Other wilderness area as the place of occurrence of the external cause; Z79.899 Other long term (current) drug therapy; F17.210 Nicotine dependence, cigarettes, uncomplicated
CPT/HCPCS: 99281

== ENCOUNTER 2024-12-21 12:44 | Emergency (ER) | payer BC, MEDICAID, SELFPAY ==
--- OUTSIDE RECORDS SUMMARY | 2018-09-30 10:41 | XMS_ITS | Continuity of Care Document ---
Author Organization [facility] Address [id number] [address] Phone Care Team Providers Care Foundry Worker General Name Role Phone Health, Community Unavailable Unavailable Allergies, Adverse Reactions, Alerts Substance Reaction Status Criticality latex Active No Information Medications Medication Instructions Dosage Effective Dates (start - stop) Status Comments folic acid 1 mg tablet take 1 tablet by oral route every day 1 MG - Active Plus 29 mg iron-1 mg tablet take 1 tablet by oral route every day with a meal 1.00 tablet - Active amoxicillin 500 mg capsule take 1 capsule by oral route every 8 hours 500 MG - Active Tylenol 325 mg capsule take 2 capsule by oral route 6 times every day as needed 2 capsule - Active 28 mg iron-800 mcg tablet - Active As per patient privacy policy some of the clinical information may not be visible. Procedures Procedure Date OFFICE/OUTPATIENT VISIT EST URINALYSIS AUTO W/O SCOPE Drug Tests Presumptive Any Number Of Zafar g Classes CULT, (U) ROUTINE ASSAY THYROID STIM HORMONE No Charge Lab Codes OBSTETRIC PANEL No Charge Lab Codes No Charge Lab Codes No Charge Lab Codes No Charge Lab Codes No Charge Lab Codes CHORIONIC GONADOTROPIN TEST PROGESTERONE-Q HEPATITIS C AB TEST ROUTINE VENIPUNCTURE DETECT AGNT MULT DNA AMPLI TRICHOMONAS VAGINALIS AMPLIF NO CHARGE URINE TEST Limited Oral Evaluation Problem Focused Intraoral Periapical First Film Extraction, Erupted Tooth Or Exposed Vilma t (Elevati Extraction, Erupted Tooth Or Exposed Vilma t (Elevati EDR Approval Note Intraoral Periapical First Film Intraoral Periapical Each Additional Film Limited Oral Evaluation Problem Focused Extraction, Erupted Tooth Or Exposed Vilma t (Elevati Extraction, Erupted Tooth Or Exposed Vilma t (Elevati EDR Approval Note Advance Directives Directive Yes / No Effective Date File Name No Information Encounters Encounter Description Practice Location Reason(s) For Visit Diagnoses Date Provider Providers Copied on Encounter [facility], [id number]- [place], [place], [id number], [place] tel:[phone] [place] [address] No Information 9 [facility]. [address], [place], [address], [place]. tel:[phone] OFFICE/OUTPA TIENT VISIT EST [facility], [id number]- [place], [address], [place] tel:[phone] [place] [address] (chief complaint) Early stage of pregnancyHistory of drug useEncntr for avionics electrical engineer exam (general) (routine) w/o abn findingsEncntr for suprvsn of normal preg, unsp, first trimesterEncounter for screening, unspecifiedHepatit is C antibody positive in blood 9 Rosalia Wood. [address] [place], [address], [place]. tel:[phone] Referring Provider: Israel Lindsey, [address] [facility] [place], [address]. tel:[phone] [facility], [id number] [id number], [address], [place] tel:[phone] [facility] F[facility] No Information 9 Rosalia Wood. [address] [place], [address], [place]. tel:[phone] Referring Provider: Israel Lindsey, [address] [place], [address]. tel:[phone] [facility], [id number] [id number], [address], [place] tel:[phone] Family Medicine F1 Amenorrhea, unspecified 9 Roya Christina. [address] [place], [place], [address], [place]. tel:[phone] Referring Provider: Carri Pryor , [address] [place], [address] . tel:[phone] [facility], [id number] [id number], [address], [place] tel:[phone] [facility] Encounter for dental exam and cleaning w/o abnormal findings 9 Arthur Romero. [address], [place], [address], [place]. tel:[phone] Referring Provider: Nick Gibson, [address] [place], [address] . tel:[phone] [facility], [id number], [place], [address], [place] tel:[phone] [facility] Encounter for dental exam and cleaning w/o abnormal findings 8 Anil Story. [address] [place], [address], [place]. tel:[phone] Referring Provider: Jez Copeland, [address] [place], [address]. tel:[phone] Family History Family Member Type Diagnosis Age At Onset Sister Problem (finding) Alive and well Father Problem (finding) Mother Problem (finding) Alive and well Payers Payer name Insurance type Covered democrat ID Authoriza tion(s) No Information Social History Type Description Quantity Date Captured Comments Alcohol Use Details Unknown Caffeine Use Details Unknown Tobacco Use Status No Information Smoking Status No Information Sex Female Sexual Orientation Heterosexual Gender Identity Female Chief Complaint And Reason For Visit No Information Reason For Referral Reason For Referral No Information Plan Of Treatment Date Type Action Status Goal Tobacco cessation counseling completed Future Order: Lab Order HCV RNA, QN PCR W/rflx To Genotype, LIPA ([id number]), Sent on: Sent Future Order: Lab Order CMP ([id number]), Sen t on: Sent Future Order: Lab Order HCV Ab ([id number]), Sent on: Sent History Of Present Illness Encounter Date Complaint History Of Prese nt Illness LMP was 07/07/19 19. Patient was not taking control pills at or around the time of her LMP. Severity: high risk (Drug used). Context: confirmed by home test on //. The patient had 3 previous pregnancies. The patient denies aggravating factors. The patient denies relieving factors. Associated symptoms include breast tenderness, fatigue, nausea, spotting. Pertinent negatives include anorexia, bleeding, constipation, edema, fever, headache, heartburn, irritability, pelvic pain, urinary difficulty, vaginal discharge, vomiting. Additional information: 27 Y/O LMP 07/06/2018, she is here today to confirm , she went to [facility] for vaginal bleeding on 07/27/2018 and was told that her was fine at 6 weeks gestation, that place her at approx 9-10 weeks gestation today, she also claims that she has been positive for hep C, she also states that she is transferring care some place else. We will test her for Hep C antibodies today.. Functional Status Date Functional Assessmen t No Information Instructions Date Instruction Additional Infor mation No Information Assessments Type Assessment Date No Information Patient Care Teams Name Effective Dates (start - stop) Status Members No Information
[2024-12-21 12:49] VITALS: BP 90/65; PULSE 119; RESP 24; TEMP 37; O2SAT 100; BMI 28.3
[2024-12-21 13:08] VITALS: RESP 18; O2SAT 98
[2024-12-21] MEDS: morphine 4 mg/mL SDV 1 mL IVP (13:08)
[2024-12-21] MEDS: ondansetron 2 mg/ML SDV 2 mL 4 MG IVP (13:09)
[2024-12-21 13:22] LABS: Hematocrit 40.1 % (36-47); Hemoglobin 13.40 g/dL (11.27-16.99); Mean Corpuscular HGB Conc 33.4 g/dL (30-55); Mean Corpuscular Hemoglobin 31.4 pg (27-33); Mean Corpuscular Volume 93.9 fl (85-98); Nucleated Red Blood Cells % 0 %; Platelet Count 212 10^3/cmm (157-399); Red Blood Count 4.27 10^6/uL (3.85-5.65); White Blood Count 8.73 10^3/uL (3.29-11.43)
--- OUTSIDE RECORDS SUMMARY | 2024-12-21 13:26 | XMS_ITS | Clinical Summary ---
Author Organization [facility] Address [address] Attn: [place] [address] Care Team Providers Care Traffic Circuit Engineer Name Role Phone Unavailable Primary Care Provider [...] on file Legal Sex Female 4:43 PM SWATCH FOLDER Gender Identity Not on file Sexual Orientation Not on file Last Filed Vital Signs Vital Sign Reading Time Taken Comments Blood Pressure 101/47 04/04/2018 4:41 AM SWATCH FOLDER Pulse 82 04/04/2018 3:51 AM SWATCH FOLDER Temperature 37.6 C (99.6 F) 04/04/2018 4:41 AM SWATCH FOLDER Respiratory Rate 16 04/04/2018 4:41 AM SWATCH FOLDER Oxygen Saturation - - Inhaled Oxygen Concentration - - Weight 67.1 kg (148 lb) 04/04/2018 1:23 AM SWATCH FOLDER Height 162.6 cm (5' 4 ) 04/04/2018 1:23 AM SWATCH FOLDER Body Mass Index 25.4 04/04/2018 1:23 AM SWATCH FOLDER Plan of Treatment Health Maintenance Due Date Last Done Comments DTAP/TDAP/TD VACCINES (2 - Tdap) 10/12/2004 10/12/19 05 HPV/Cotest (21-29) 2009 HPV VACCINES (1 - 3-dose SCD M series) 12/23/2015 CERVICAL CANCER SCREENING 2018 HPV/Cotest (30-65) 2018 PAP SMEAR 2018 INFLUENZA VACCINE (#1) 2024 HEPATITIS B VACCINES Completed 07/31/1999, 04/13/1999, 02/20/1999
--- OUTSIDE RECORDS SUMMARY | 2024-12-21 13:26 | XMS_ITS | Encounter Summary ---
Author Organization [employer] [facility] Address [address] [place] [address] Care Team Providers Care Aviation Metalsmith Name Role Phone Unavailable Primary Care Provider Unavailabl e Encounter Details Date Type Department Care Team (Latest Contact Info) Description 03/23/1999 Outpatient Historical [facility] iNck Tracy Jr., MD [address] [place] [id number] Volume depletion (Primary Dx); Acute upper respiratory infections of unspecified site Social History Tobacco Use Types Packs/Day Years Used Date Smoking Tobacco: Never Assessed Comments Unknown Sex and Gender Information Value Date Recorded Sex Assigned at Not on file Legal Sex Female 4:07 AM MORTAR MIXER Gender Identity Not on file Sexual Orientation Not on file documented as of this encounter Plan of Treatment Not on file documented as of this encounter Visit Diagnoses Diagnosis Volume depletion- Primary Acute upper respiratory infections of unspecified site documented in this encounter
--- OUTSIDE RECORDS SUMMARY | 2024-12-21 13:26 | XMS_ITS | Clinical Summary ---
Author Organization [facility] Address [address] [place] [address] Phone Care Team Providers Care Nursery School Attendant Name Role Phone Unavailable Primary Care Provider [...] on file Legal Sex Female 4:07 AM ENGINEERING SPECIALIST Gender Identity Not on file Sexual Orientation Not on file Last Filed Vital Signs Vital Sign Reading Time Taken Comments Blood Pressure 101/47 04/04/2018 4:41 AM ENGINEERING SPECIALIST Pulse 82 04/04/2018 3:51 AM ENGINEERING SPECIALIST Temperature 37.6 C (99.6 F) 04/04/2018 4:41 AM ENGINEERING SPECIALIST Respiratory Rate 16 04/04/2018 4:41 AM ENGINEERING SPECIALIST Oxygen Saturation 99% 04/04/2018 4:41 AM ENGINEERING SPECIALIST Inhaled Oxygen Concentration - - Weight 67.1 kg (148 lb) 04/04/2018 1:23 AM ENGINEERING SPECIALIST Height 162.6 cm (5' 4 ) 04/04/2018 1:23 AM ENGINEERING SPECIALIST Body Mass Index 25.4 04/04/2018 1:23 AM ENGINEERING SPECIALIST Plan of Treatment Health Maintenance Due Date Last Done Comments DTAP/TDAP/TD VACCINES (2 - Tdap) 10/12/2004 10/12/19 05 HPV/Cotest (21-29) 2009 HPV VACCINES (1 - 3-dose SCD M series) 12/23/2015 CERVICAL CANCER SCREENING 2018 HPV/Cotest (30-65) 2018 PAP SMEAR 2018 INFLUENZA VACCINE (#1) 2024 HEPATITIS B VACCINES Completed 07/31/1999, 04/13/1999, 02/20/[address] [address] MEDICAID Advance Directives For more information, please contact: [phone] * Full Code (Latest Code Status on File) Date Activated Date Inactivated Comments 09/19/2017 10:15 PM 09/22/2017 5:18 PM * Full Code Date Activated Date Inactivated Comments 09/19/2017 7:47 PM 09/19/2017 10:14 PM
--- OUTSIDE RECORDS SUMMARY | 2024-12-21 13:26 | XMS_ITS | Encounter Summary ---
Author Organization [employer] [facility] Address [address] [place] [address] Care Team Providers Care Composite Laminator Name Role Phone Unavailable Primary Care Provider Unavailabl e Encounter Details Date Type Department Care Team (Latest Contact Info) Description 01/11/2000 Outpatient Historical HIS [facility] Kevon Rojas MD [address] [place] [phone] Open wound of hand except finger(s) alone, without mention of complication (Primary Dx); Posttraumatic wound infection not elsewhere classified; Attention to dressings and sutures Social History Tobacco Use Types Packs/Day Years Used Date Smoking Tobacco: Never Assessed Comments Unknown Sex and Gender Information Value Date Recorded Sex Assigned at Not on file Legal Sex Female 4:07 AM MARBLEIZER Gender Identity Not on file Sexual Orientation Not on file documented as of this encounter Plan of Treatment Not on file documented as of this encounter Visit Diagnoses Diagnosis Open wound of hand except finger(s) alone, without mention of complication- Primary Posttraumatic wound infection not elsewhere classified Attention to dressings and sutures documented in this encounter
--- OUTSIDE RECORDS SUMMARY | 2024-12-21 13:26 | XMS_ITS | Encounter Summary ---
Author Organization [email or web address] [facility] Address [address] [place] [address] Care Team Providers Care Diesel Engine Mechanic Apprentice Name Role Phone Unavailable Primary Care Provider Unavailabl e Encounter Details Date Type Department Care Team (Latest Contact Info) Description 01/08/1999 Outpatient Historical HIS [facility] Jasonbelen Bogdan Stap[place] NO ADDRESS ON FILE Otalgia, unspecified (Primary Dx) Social History Tobacco Use Types Packs/Day Years Used Date Smoking Tobacco: Never Assessed Comments Unknown Sex and Gender Information Value Date Recorded Sex Assigned at Not on file Legal Sex Female 4:07 AM ADOBE BLOCK MAKER Gender Identity Not on file Sexual Orientation Not on file documented as of this encounter Plan of Treatment Not on file documented as of this encounter Visit Diagnoses Diagnosis Otalgia, unspecified- Primary documented in this encounter
--- OUTSIDE RECORDS SUMMARY | 2024-12-21 13:26 | XMS_ITS | Encounter Summary ---
Author Organization [employer] [facility] Address [address] [place] [address] Care Team Providers Care Honing Machine Operator Name Role Phone Unavailable Primary Care Provider Unavailabl e Encounter Details Date Type Department Care Team (Latest Contact Info) Description 01/14/2000 Outpatient Historical [facility] Kevon Rojas MD [address] [place] [phone] Posttraumatic wound infection not elsewhere classified (Primary Dx); Attention to dressings and sutures Social History Tobacco Use Types Packs/Day Years Used Date Smoking Tobacco: Never Assessed Comments Unknown Sex and Gender Information Value Date Recorded Sex Assigned at Not on file Legal Sex Female 4:07 AM CLINICAL REHABILITATION AIDE Gender Identity Not on file Sexual Orientation Not on file documented as of this encounter Plan of Treatment Not on file documented as of this encounter Visit Diagnoses Diagnosis Posttraumatic wound infection not elsewhere classified- Primary Attention to dressings and sutures documented in this encounter
--- OUTSIDE RECORDS SUMMARY | 2024-12-21 13:26 | XMS_ITS | Encounter Summary ---
Author Organization [employer] [facility] Address [address] [place] [address] Care Team Providers Care Door Machine Operator Name Role Phone Unavailable Primary Care Provider Unavailabl e Encounter Details Date Type Department Care Team (Latest Contact Info) Description 01/17/2000 Outpatient Historical HIS [facility] Kevon Rojas MD [address] [place] [phone] Injury, other and unspecified, hand, except finger (Primary Dx) Social History Tobacco Use Types Packs/Day Years Used Date Smoking Tobacco: Never Assessed Comments Unknown Sex and Gender Information Value Date Recorded Sex Assigned at Not on file Legal Sex Female 4:07 AM SUPPLY PLANNER Gender Identity Not on file Sexual Orientation Not on file documented as of this encounter Plan of Treatment Not on file documented as of this encounter Visit Diagnoses Diagnosis Injury, other and unspecified, hand, except finger- Primary documented in this encounter
--- NOTE | 2024-12-21 13:27 | CT_ITS ---
WS: [id number] CT ABDOMEN AND PELVIS NONCONTRAST HISTORY: flank pain TECHNIQUE: Imaging performed through the abdomen and pelvis. Coronal and sagittal reformats are submitted. All CT scans at [facility] use at least one of these dose optimization techniques: automated exposure control; mA and/or kV adjustment per patient size (includes targeted exams where dose is matched to clinical indication); or iterative reconstruction. DLP: 509.22 mGy.cm COMPARISON: 12/17/2023. There is significant motion artifact especially through the abdomen at the level of the liver, gallbladder and pancreas and upper kidneys. Lower thorax: Lung bases are clear. Visualized heart is normal. No hiatal hernia. Liver: Motion artifact. Limited. Gallbladder: Limited by motion. Pancreas: As visualized negative. Very limited. Spleen: Normal. Adrenal glands: Normal. No mass. Right kidney: Motion artifact. No obstruction or hydronephrosis. Left kidney: Normal size kidney with no mass or hydronephrosis. Aorta: Normal abdominal aorta, no aneurysm or atherosclerosis. No free fluid, intraperitoneal air or significant lymphadenopathy. GI tract: Normal noncontrast imaging of the stomach, small bowel and colon. No obstruction or wall thickening. Normal appendix. Abdominal wall: Small umbilical hernia contains fat only. Pelvis: Tiny amount of free fluid in the pelvis is probably physiologic. Uterus is midline. No mass. Osseous structures: Unremarkable. CT/CT kidney stone [id number] IMPRESSION: 1. Quality of the this exam is compromised by motion artifact. 2. No renal obstruction identified. No ureteral obstruction or stones. 3. Normal appendix. 4. Tiny amount of free fluid in the pelvis is physiologic. 5. Visualization of the gallbladder and liver and pancreas are limited.
--- NOTE | 2024-12-21 13:34 | W.ED.ABDPA2 ---
HPI - Abdominal Pain General: Chief Complaint: Abdominal Pain Stated Complaint: whole right side pain Time Seen by Provider: 12/21/24 12:52 History of Present Illness: 33-year-old female presents emergency room with left flank pain sudden onset earlier today. Patient has not had any sweats or chills she is tachycardic on arrival. She is also nauseous. She had used marijuana prior to coming in to try to control pain. No cough or shortness of breath she has not noticed any hematuria. Associated Symptoms: Denies chills, dysuria and fever(s) Related Data Home Medications ?Medication ?Instructions ?Recorded ?Confirmed amlodipine 5 mg tablet 5 mg PO DAILY 11/01/24 11/01/24 metoprolol tartrate 25 mg tablet 12.5 mg PO BID 11/01/24 11/01/24 Previous Rx's ?Medication ?Instructions ?Recorded gabapentin 300 mg capsule 300 mg PO TID #90 caps 11/01/24 hydroxyzine HCl 50 mg tablet 100 mg (2 x 50 mg) PO .HS PRN 11/01/24 insomnia #60 tabs sertraline 100 mg tablet (Zoloft) 100 mg PO DAILY #30 tabs 11/01/24 ciprofloxacin HCl 500 mg tablet 500 mg PO BID #20 tabs 12/21/24 (Cipro) Allergies Allergy/AdvReac Type Severity Reaction Status Date / Time No Known Allergies Allergy Verified 11/01/24 14:05 Review of Systems Const: Denies: fever(s) or chills Card: Denies: chest pain Resp: Denies: dyspnea GI: Denies: abdominal pain : Reports: flank pain; Denies: dysuria, urinary frequency or urinary urgency Musc: Denies: neck pain or back pain Skin/Breast: Denies: rash PFSH ED PFSH: Medical History Psychiatric care Anxiety and depression 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 ] Quit status (tobacco/nicotine): not considering quitting Second hand smoke exposure: Yes Current gender identity: Female Physical Exam Const: ORIENTATION/CONSCIOUSNESS: Yes awake HENMT: COMMON NORMALS: normocephalic, atraumatic and hearing grossly normal bilaterally HEAD & SCALP: normocephalic and atraumatic Resp: COMMON NORMALS: normal respiratory effort, No retractions, No use of accessory muscles and clear to auscultation bilaterally AUSCULTATION: clear to auscultation bilaterally Cardio: COMMON NORMALS: regular rate, regular rhythm and No murmurs present (Cardio) RATE: regular rate RHYTHM: regular rhythm GI: COMMON NORMALS: Soft to palpation and No hepatosplenomegaly present AUSCULTATION: Yes normoactive bowel sounds PALPATION: Yes Soft to palpation, No Tenderness to palpation present (GI), No Guarding due to palpation present (GI) and Yes No hepatosplenomegaly present : BLADDER/KIDNEY EXAM: Yes CVA tenderness Back/Pelvis: GENERAL BACK: Yes CVA tenderness CVA tenderness: right Extremity: COMMON NORMALS: normal to inspection, capillary refill normal, no clubbing, cyanosis or edema, no calf tenderness and no pedal edema Neuro: OTHER: No focal neurologic deficits strength equal in both sides and sensation normal no facial droop or weakness Skin: COMMON NORMALS: no rashes or lesions noted GENERAL SKIN EXAM: no rashes or lesions noted Course Vital Signs: Vital signs: Vital Signs Temperature 98.6 F 12/21/24 12:49 Pulse Rate 104 H 12/21/24 15:21 Respiratory Rate 18 12/21/24 13:08 Blood Pressure 137/98 12/21/24 15:21 Pulse Oximetry 98 12/21/24 15:21 Oxygen Delivery Me thod Room Air 12/21/24 12:49 MDM - Abdominal Pain Medical Decision Making Patient under the influence of marijuana by her own admission. Patient in for IV infiltrated she became quite upset we offered other medications and IV fluids that she refused. No significant findings on the CT white count not elevated she has a cystitis on her urine suspect she may have upon nephritis given her flank pain. She declined IV antibiotics here discharged home with oral antibiotics. Patient vies she return at any point we can give her IV fluids and an initial dose of an IV antibiotics. Patient was very concerned about her appendix advised her there is no evidence of acute appendicitis on the CT and no evidence of kidney stone. Lab Data 12/21/24 13:15 12/21/24 13:15 Labs/Radiology: Radiology Impressions Abdomen/Pelvis CT 12/21/24 13:27 IMPRESSION: 1. Quality of the this exam is compromised by motion artifact. 2. No renal obstruction identified. No ureteral obstruction or stones. 3. Normal appendix. 4. Tiny amount of free fluid in the pelvis is physiologic. 5. Visualization of the gallbladder and liver and pancreas are limited. Laboratory Results WBC 8.73 10^3/uL (3.29-11.43) 12/21/24 13:15 RBC 4.27 10^6/uL (3.85-5.65) 12/21/24 13:15 Hgb 13.40 g/dL (11.27-16.99) 12/21/24 13:15 Hct 40.1 % (36-47) 12/21/24 13:15 MCV 93.9 fl (85-98) 12/21/24 13:15 MCH 31.4 pg (27-33) 12/21/24 13:15 MCHC 33.4 g/dL (30-55) 12/21/24 13:15 RDW 13.1 % (12.1-15.1) 12/21/24 13:15 Plt Count 212 10^3/cmm (157-399) 12/21/24 13:15 MPV 10.2 fL (7.4-10.4) 12/21/24 13:15 Neut % (Auto) 62.7 % 12/21/24 13:15 Lymph % (Auto) 25.0 % 12/21/24 13:15 [place] % (Auto) 5.6 % 12/21/24 13:15 Eos % (Auto) 5.6 % 12/21/24 13:15 Baso % (Auto) 0.9 % 12/21/24 13:15 Neut # (Auto) 5.47 10^3/uL (1.8-7.7) 12/21/24 13:15 Lymph # (Auto) 2.2 10^3/uL (0.8-4.8) 12/21/24 13:15 [place] # (Auto) 0.5 10^3/uL (0.2-0.9) 12/21/24 13:15 Eos # (Auto) 0.5 10^3/uL (0.0-0.8) 12/21/24 13:15 Baso # (Auto) 0.1 10^3/uL (0.0-0.1) 12/21/24 13:15 Nucleated RBC % (auto) 0 % 12/21/24 13:15 Nucleated RBCs # 0.0 /100WBC 12/21/24 13:15 Sodium 138 mmol/L (136-145) 12/21/24 13:15 Potassium 4.3 mmol/L (3.5-5.1) 12/21/24 13:15 Chloride 104 mmol/L (98-107) 12/21/24 13:15 Carbon Dioxide 23 mmol/L (22-29) 12/21/24 13:15 Anion Gap 15.3 (5-19) 12/21/24 13:15 BUN 25 mg/dL (6-20) H 12/21/24 13:15 Creatinine 0.7 mg/dL (0.5-0.9) 12/21/24 13:15 GFR Calculation 95.2 mL/min (90-130) 12/21/24 13:15 Glucose 101 mg/dL (65-115) 12/21/24 13:15 Calculated Osmolality 291 mOsm/kg (285-295) 12/21/24 13:15 Lactic Acid 1.5 mmol/L (0.5-2.2) 12/21/24 13:18 Calcium 9.3 mg/dL (8.5-10.5) 12/21/24 13:15 Total Bilirubin 0.4 mg/dL (0.15-1.2) 12/21/24 13:15 AST 19 U/L (0-32) 12/21/24 13:15 ALT 18 U/L (0-33) 12/21/24 13:15 Alkaline Phosphatase 161 U/L (35-105) H 12/21/24 13:15 Total Protein 7.6 g/dL (6.6-8.7) 12/21/24 13:15 Albumin 4.3 g/dL (3.5-5.2) 12/21/24 13:15 Globulin 3.3 g/dL (1.3-4.6) 12/21/24 13:15 HCG, Qual Negative (Negative) 12/21/24 13:15 Urine Color Yellow (Yellow) 12/21/24 14:36 Urine Appearance Cloudy (CLEAR) A 12/21/24 14:36 Urine pH 7.0 (5-7) 12/21/24 14:36 Ur Specific [place] 1.024 (1.005-1.030) 12/21/24 14:36 Urine Protein Negative (Negative) 12/21/24 14:36 Urine Glucose (UA) Negative (Normal) 12/21/24 14:36 Urine Ketones Negative (Negative) 12/21/24 14:36 Urine Blood Negative (Negative) 12/21/24 14:36 Urine Nitrate Negative (Negative) 12/21/24 14:36 Urine Bilirubin Negative (Negative) 12/21/24 14:36 Urine Urobilinogen 0.2 mg/dL (Negative) 12/21/24 14:36 Ur Leukocyte Esterase Trace (Negative) A 12/21/24 14:36 Urine RBC 3-5 /hpf (0-2) 12/21/24 14:36 Urine WBC 21-50 /hpf (0-5) H 12/21/24 14:36 Ur Squamous Epith Cells 0-5 /hpf (0-5) 12/21/24 14:36 Amorphous Sediment Not Reportable 12/21/24 14:36 Urine Bacteria 1+ /hpf (NONE) H 12/21/24 14:36 Hyaline Casts 0-4 /lpf H 12/21/24 14:36 All radiology interpretation(s) finalized by discharge Discharge Plan Discharge Patient Disposition: Home Clinical Impression: Pyelonephritis Condition: Stable Prescriptions: New ciprofloxacin HCl [Cipro] 500 mg tablet 500 mg PO BID Qty: 20 0RF No Action amlodipine 5 mg tablet 5 mg PO DAILY metoprolol tartrate 25 mg tablet 12.5 mg PO BID sertraline [Zoloft] 100 mg tablet 100 mg PO DAILY Qty: 30 2RF gabapentin 300 mg capsule 300 mg PO TID Qty: 90 2RF hydroxyzine HCl 50 mg tablet 100 mg PO .HS PRN (Reason: insomnia) Qty: 60 2RF Discharge Orders: Discharge ED (Routine); Ordered 12/21/24 Ordered By: Rufino Fong Referrals: Luis Felipe Rodriguez MD [Primary Care Provider, Family Practice] Discharge Diet: Usual diet Discharge Activity: Increase activity as tolerated Patient Instructions: Opioid Safety, Pain Management, Patient Portal & Phyllis Instructions Activity Restrictions/Additional Instructions: Thank you for choosing [facility] for your healthcare needs today. It is very important that you follow up as instructed or that you return to the Emergency Department should you have concerns or if your condition changes or worsens in any way. Emergency department visits are focused on emergent conditions, in some cases you may require further evaluation on an outpatient basis. You were seen in the emergency room with complaints of right flank pain and evaluation showed she had a bladder infection but there is no sign of kidney stone. Suspect based on your symptoms some of the discomfort may be from irritation to the kidney from the infection. While there is no radiographic evidence of pyelonephritis your symptoms suggest there may be some extension to your kidney. Your white count was normal. We had ordered IV fluids and further pain medication she became concerned about your IV and asked that it be removed and that you be discharged. We discharged you home with oral antibiotics 1 pill twice a day for 10 days. If you wish you may return to the emergency room you can be evaluated further if your symptoms worsen or you develop fever you are welcome to return. (Please note that included in your discharge packet is information concerning opioid safety and pain management. This information is given to all patients were discharged from the ER regardless of their discharge diagnosis or the medicines they usually take or are prescribed.) Print Language: Kinyarwanda Coding Level of Care Code ED Industrial Maintenance Manager for Mary Cedeño
[2024-12-21 13:37] LABS: Alanine Aminotransferase 18 U/L (0-33); Albumin Level 4.3 g/dL (3.5-5.2); Alkaline Phosphatase 161 U/L (35-105); Anion Gap 15.3 (5-19); Aspartate Amino Transferase 19 U/L (0-32); Blood Urea Nitrogen 25 mg/dL (6-20); Calcium 9.3 mg/dL (8.5-10.5); Carbon Dioxide 23 mmol/L (22-29); Chloride 104 mmol/L (98-107); Creatinine Clr Calc Pharmacy 111.1325; Globulin 3.3 g/dL (1.3-4.6); Glucose 101 mg/dL (65-115); Osmolality Calculated 291 mOsm/kg (285-295); Potassium 4.3 mmol/L (3.5-5.1); Sodium 138 mmol/L (136-145); Total Protein 7.6 g/dL (6.6-8.7)
[2024-12-21 13:42] LABS: HCG, Serum Qual Negative (Negative)
[2024-12-21 14:03] LABS: Lactic Sepsis W/Reflex 1.5 mmol/L (0.5-2.2)
[2024-12-21 14:59] LABS: Glucose Urine UA Negative (Normal); Nitrate Urine Negative (Negative); Specific Gravity, Urine 1.024 (1.005-1.030)
[2024-12-21 15:05] LABS: Add Urine Microscopic? YES
[2024-12-21 15:21] VITALS: BP 137/98; PULSE 104; O2SAT 98
[2024-12-21] MEDS: cefTRIAXone 1,000 mg SDV 1000 MG IVP (15:44)
== END 2024-12-21 16:12 | disposition home or self-care (01) ==
PROVIDERS: Emergency Provider Family Medicine; PCP Family Medicine
DX: N12 Tubulo-interstitial nephritis, not specified as acute or chronic (principal); F17.210 Nicotine dependence, cigarettes, uncomplicated
CPT/HCPCS: 36415; 74176; 80053; 81001; 83605; 84703; 85025; 96374; 96375; 99285; J0696; J1885; J2270; J2405; J7030

== ENCOUNTER 2025-02-23 11:46 | Emergency (ER) | payer OTHER, SELFPAY ==
[2025-02-23 11:50] VITALS: BP 168/130; PULSE 105; RESP 17; TEMP 37.1; O2SAT 98; BMI 28.1
--- NOTE | 2025-02-23 12:00 | CTR_ITS ---
PROCEDURE INFORMATION: Exam: CT Head Without Contrast Exam date and time: 02/23/2025 12:36 PM Age: 34 years old Clinical indication: Injury or trauma; Other: Metal roby hit head; Other: Head injury TECHNIQUE: Imaging protocol: Computed tomography of the head without contrast. Radiation optimization: All CT scans at this facility use at least one of these dose optimization techniques: automated exposure control; mA and/or kV adjustment per patient size (includes targeted exams where dose is matched to clinical indication); or iterative reconstruction. COMPARISON: CT head wo con* [id number] 03/09/2024 11:33 PM RADIATION DOSE METRICS: Total DLP (mGy-cm): 1060.4 FINDINGS: Brain: Normal. No hemorrhage. Unremarkable white matter. No mass effect. Cerebral ventricles: No ventriculomegaly. Paranasal sinuses: Mucosal disease of the left sphenoid sinus Mastoid air cells: Visualized mastoid air cells are well aerated. Bones: Unremarkable. No acute fracture. Soft tissues: Unremarkable. CT/CT head wo con* [id number] IMPRESSION: No acute intracranial posttraumatic changes.
--- NOTE | 2025-02-23 12:24 | W.ED.HEATRA ---
HPI - Head Injury General: Chief complaint: Head Injury Stated complaint: hit in head with a pipe Time Seen by Provider: 02/23/25 12:04 History of Present Illness: 34-year-old female who is into the emergency room from work after a metal bar fell onto her head from about 10 feet. Her work required that she come in for evaluation. Said she has a bit of a headache. No loss of consciousness. No altered mental status. Head hurts worse if she bends forward. Related Data Home Medications ?Medication ?Instructions ?Recorded ?Confirmed amlodipine 5 mg tablet 5 mg PO DAILY 11/01/24 11/01/24 metoprolol tartrate 25 mg tablet 12.5 mg PO BID 11/01/24 11/01/24 Previous Rx's ?Medication ?Instructions ?Recorded gabapentin 300 mg capsule 300 mg PO TID #90 caps 11/01/24 hydroxyzine HCl 50 mg tablet 100 mg (2 x 50 mg) PO .HS PRN 11/01/24 insomnia #60 tabs sertraline 100 mg tablet (Zoloft) 100 mg PO DAILY #30 tabs 11/01/24 ciprofloxacin HCl 500 mg tablet 500 mg PO BID #20 tabs 12/21/24 (Cipro) Allergies Allergy/AdvReac Type Severity Reaction Status Date / Time No Known Allergies Allergy Verified 11/01/24 14:05 Review of Systems Narrative: Constitutional symptoms: Negative except as documented in HPI. Skin symptoms: Negative except as documented in HPI. Eye symptoms: Negative except as documented in HPI. ENMT symptoms: Negative except as documented in HPI. Respiratory symptoms: Negative except as documented in HPI. Cardiovascular symptoms: Negative except as documented in HPI. Gastrointestinal symptoms: Negative except as documented in HPI. Genitourinary symptoms: Negative except as documented in HPI. Musculoskeletal symptoms: Negative except as documented in HPI. Neurologic symptoms: Negative except as documented in HPI. Psychiatric symptoms: Negative except as documented in HPI. Endocrine symptoms: Negative except as documented in HPI. 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 ] Quit status (tobacco/nicotine): not considering quitting Second hand smoke exposure: Yes Current gender identity: Female Physical Exam Narrative: EXAM NARRATIVE: General: Alert, no acute distress. Skin: Warm, dry. Head: Normocephalic, atraumatic. Neck: Supple, trachea midline. Eye: Extraocular movements are intact. Ears, nose, mouth and throat: mucosa moist. Cardiovascular: Regular, Normal peripheral perfusion. Respiratory: Lungs are clear to auscultation, respirations are non-labored, breath sounds are equal, Symmetrical chest wall expansion. Gastrointestinal: Soft, Nontender, Non distended Musculoskeletal: Normal ROM, no deformity. Neurological: Alert and oriented, No focal neurological deficit observed. Psychiatric: Cooperative, appropriate mood & affect. Course Vital Signs: Vital signs: Vital Signs Temperature 98.7 F 02/23/25 11:50 Pulse Rate 105 H 02/23/25 11:50 Respiratory Rate 17 02/23/25 11:50 Blood Pressure 168/130 02/23/25 11:50 Pulse Oximetry 98 02/23/25 11:50 Oxygen Delivery Me thod Room Air 02/23/25 11:50 MDM - Head Injury Medcial Decision Making Medical decision making Patient's reason for coming to the emergency room: Social determinants: Patient is employed I reviewed the patient's medical record. Last visit to the emergency room was for pyelonephritis in December I reviewed the patient's current home meds Patient takes amlodipine for hypertension and metoprolol. Alternate historians: None Differential diagnosis including but not limited to and based on the above HPI, review of systems and physical exam: patient with fall and head injury. Subdural hematoma, subarachnoid hemorrhage, concussion, skull fracture. Orders placed to evaluate differential diagnosis based on the above differential, HPI and physical exam CT scan of the head was ordered. CT head: No acute intracranial process. No intracranial hemorrhage, no evidence of infarct. No evidence of acute fracture. This was reviewed and interpreted by myself the emergency room physician. I also reviewed the radiology report. Reexamination: Patient became quite tearful and was demanding to leave. According to the person that was with her from her job that they require drug screen and she is afraid she may not pass this. Assessment and plan: Head injury - Discharged home - Discussed plan with patient. Answered any questions. - Evaluation and treatment of this problem were appropriate in the emergency setting. Lab Data Radiology Impressions Head CT 02/23/25 12:00 IMPRESSION: No acute intracranial posttraumatic changes. All radiology interpretation(s) finalized by discharge Discharge Plan Discharge Patient Disposition: Home Clinical Impression: Closed head injury Condition: Stable Prescriptions: No Action amlodipine 5 mg tablet 5 mg PO DAILY metoprolol tartrate 25 mg tablet 12.5 mg PO BID sertraline [Zoloft] 100 mg tablet 100 mg PO DAILY Qty: 30 2RF gabapentin 300 mg capsule 300 mg PO TID Qty: 90 2RF hydroxyzine HCl 50 mg tablet 100 mg PO .HS PRN (Reason: insomnia) Qty: 60 2RF ciprofloxacin HCl [Cipro] 500 mg tablet 500 mg PO BID Qty: 20 0RF Discharge Orders: Discharge ED (Routine); Ordered 02/23/25 Ordered By: Mayte Christine Referrals: Luis Felipe Rodriguez MD [Primary Care Provider, Family Practice] Discharge Diet: Usual diet Discharge Activity: Increase activity as tolerated Patient Instructions: Head Injury (ED), Opioid Safety, Pain Management, Patient Portal & Phyllis Instructions Activity Restrictions/Additional Instructions: Thank you for choosing [facility] for your healthcare needs today. You have been screened and evaluated and felt safe for discharge. Health conditions do change or evolve sometimes and as such it is important that you follow up with your Primary Doctor to be re checked, 3-5 days is a general good time frame for follow up. You are always welcome to return to the ED for re assessment if your symptoms are worsening or you have new concerns Print Language: Lithuanian Coding Level of Care Code ED Trial Examiner for Mary Cedeño
--- NOTE | 2025-02-23 13:15 | PC.NURSE ---
PATIENT CAME OUT OF ROOM AND STATED SHE WANTED TO LEAVE. DR. BARTLETT INFORMED OF REQUEST TO LEAVE. DR. BARTLETT SPOKE WITH PATIENT AND STATED SHE STILL WANTED TO LEAVE AND SHE DID NOT WANT TO COME. PATIENT GIVEN DC PAPERWORK AFTER PROVIDER LOOKED AT CT REPORT.
--- OUTSIDE RECORDS SUMMARY | 2025-02-23 14:55 | XMS_ITS | Encounter Summary ---
Author Organization [employer] [facility] Address [address] [place] [address] Care Team Providers Care Spring Coiling Machine Setter Name Role Phone Unavailable Primary Care Provider Unavailabl e Encounter Details Date Type Department Care Team (Latest Contact Info) Description 01/17/2000 Outpatient Historical [facility] Kevon Rojas MD [address] [place] [id number] Injury, other and unspecified, hand, except finger (Primary Dx) Social History Tobacco Use Types Packs/Day Years Used Date Smoking Tobacco: Never Assessed Comments Unknown Sex and Gender Information Value Date Recorded Sex Assigned at Not on file 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
--- OUTSIDE RECORDS SUMMARY | 2025-02-23 14:55 | XMS_ITS | Clinical Summary ---
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 Gender Identity Not on file Sexual Orientation Not on file Last Filed Vital Signs Vital Sign Reading Time Taken Comments Blood Pressure 101/47 04/04/2018 4:41 AM ARCHITECT INTERNSHIP Pulse 82 04/04/2018 3:51 AM ARCHITECT INTERNSHIP Temperature 37.6 C (99.6 F) 04/04/2018 4:41 AM ARCHITECT INTERNSHIP Respiratory Rate 16 04/04/2018 4:41 AM ARCHITECT INTERNSHIP Oxygen Saturation 99% 04/04/2018 4:41 AM ARCHITECT INTERNSHIP Inhaled Oxygen Concentration - - Weight 67.1 kg (148 lb) 04/04/2018 1:23 AM ARCHITECT INTERNSHIP Height 162.6 cm (5' 4 ) 04/04/2018 1:23 AM ARCHITECT INTERNSHIP Body Mass Index 25.4 04/04/2018 1:23 AM ARCHITECT INTERNSHIP Plan of Treatment Health Maintenance Due Date Last Done Comments DTAP/TDAP/TD VACCINES (2 - Tdap) 10/12/2004 10/12/19 05 HPV/Cotest (21-29) 2009 HPV VACCINES (1 - 3-dose SCD M series) 12/23/2015 CERVICAL CANCER SCREENING 2018 HPV/Cotest (30-65) 2018 PAP SMEAR 2018 INFLUENZA VACCINE (#1) 2024 HEPATITIS B VACCINES Completed 07/31/1999, 04/13/1999, 02/20/[address] [place] [address] [place] [address] MEDICAID Advance Directives For more information, please contact: [phone] * Full Code (Latest Code Status on File) Date Activated Date Inactivated Comments 09/19/2017 10:15 PM 09/22/2017 5:18 PM * Full Code Date Activated Date Inactivated Comments 09/19/2017 7:47 PM 09/19/2017 10:14 PM
--- OUTSIDE RECORDS SUMMARY | 2025-02-23 14:55 | XMS_ITS | Encounter Summary ---
Author Organization [employer] [facility] Address [address] [place] [address] Care Team Providers Care Fire Watchman Name Role Phone Unavailable Primary Care Provider Unavailabl e Encounter Details Date Type Department Care Team (Latest Contact Info) Description 01/08/1999 Outpatient Historical HIS [facility] Jasonbelen Bogdan Stap[place] NO ADDRESS ON FILE Otalgia, unspecified (Primary Dx) Social History Tobacco Use Types Packs/Day Years Used Date Smoking Tobacco: Never Assessed Comments Unknown Sex and Gender Information Value Date Recorded Sex Assigned at Not on file 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
--- OUTSIDE RECORDS SUMMARY | 2025-02-23 14:55 | XMS_ITS | Encounter Summary ---
Author Organization [employer] [facility] Address [address] [place] [address] Care Team Providers Care Mason Apprentice Name Role Phone Unavailable Primary Care Provider Unavailabl e Encounter Details Date Type Department Care Team (Latest Contact Info) Description 03/23/1999 Outpatient Historical [facility] Nick Tracy Jr., MD [address] [place] [id number] Volume depletion (Primary Dx); Acute upper respiratory infections of unspecified site Social History Tobacco Use Types Packs/Day Years Used Date Smoking Tobacco: Never Assessed Comments Unknown Sex and Gender Information Value Date Recorded Sex Assigned at Not on file 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
--- OUTSIDE RECORDS SUMMARY | 2025-02-23 14:55 | XMS_ITS | Encounter Summary ---
Author Organization [employer] [facility] Address [address] [place] [address] Care Team Providers Care Needle Board Repairer Name Role Phone Unavailable Primary Care Provider Unavailabl e Encounter Details Date Type Department Care Team (Latest Contact Info) Description 01/11/2000 Outpatient Historical [facility] Kevon Rojas MD [address] [place] [id number] Open wound of hand except finger(s) alone, without mention of complication (Primary Dx); Posttraumatic wound infection not elsewhere classified; Attention to dressings and sutures Social History Tobacco Use Types Packs/Day Years Used Date Smoking Tobacco: Never Assessed Comments Unknown Sex and Gender Information Value Date Recorded Sex Assigned at Not on file 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
--- OUTSIDE RECORDS SUMMARY | 2025-02-23 14:55 | XMS_ITS | Encounter Summary ---
Author Organization [facility] [facility] Address [address] [place] [address] Care Team Providers Care Sewage Disposal Engineer Name Role Phone Unavailable Primary Care Provider Unavailabl e Encounter Details Date Type Department Care Team (Latest Contact Info) Description 01/14/2000 Outpatient Historical HIS [facility] Kevon Rojas MD [address] [place] [phone] Posttraumatic wound infection not elsewhere classified (Primary Dx); Attention to dressings and sutures Social History Tobacco Use Types Packs/Day Years Used Date Smoking Tobacco: Never Assessed Comments Unknown Sex and Gender Information Value Date Recorded Sex Assigned at Not on file Legal 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
--- OUTSIDE RECORDS SUMMARY | 2025-02-23 14:55 | XMS_ITS | Patient Health Record ---
Author Organization [facility] Address [address] [place] [address] Care Team Providers Care Chemical Processing Technician Name Role Phone Michelle Finch Unavailable [phone] Reason For Referral No Information Medications Medication SIG (Take, Route, Frequency, Duration) Notes Start Date End Date Status Ibuprofen 400 MG Tablet 1 tablet with fo od or milk as needed Orally Three times a day Active Suboxone 8-2 MG Film 1 film under the tongue and allow to dissolve Sublingual twice a day (bid); Duration: 15 days 04/20/2019 Active diphenhydrAMINE HCl 25 MG Capsule 1 capsule at bedtime as needed Orally Once a day; Duration: 30 day(s) Active Cetirizine HCl 10 MG Tablet 1 tablet Orally Once a day; Duration: 30 day(s) Active methylPREDNISolone 4 MG Tablet 1 tablet in the morning with food or milk Orally; Duration: 30 day(s) Active Tylenol 1 tab Oral; Duration: 14 days *Pick strength-form from [employer] for eRX* Active guaiFENesin 100 MG/5ML Syrup 10 ml as needed Orally every 4 hrs Active Benzocaine 20 % Aerosol 1 application as needed Externally Twice a day Active Benadryl Allergy 25 MG Tablet 1 tablet at bedtime as needed Orally Once a day; Duration: 30 day(s) Active Prazosin HCl 2 MG Capsule 1 capsule at bedtime Orally Once a day; Duration: 30 day(s) 04/20/2019 Active traZODone HCl 50 MG Tablet 1 tablet at bedtime as needed Orally Once a day; Duration: 30 day(s) 04/20/2019 Active hydrOXYzine HCl 50 MG Tablet 1-2 tablets as needed Orally every 6 hrs; Duration: 30 days 04/13/2019 Active Social History Social History Additional Details Category Social Info Options Details Migrated Social History Social History: (Alcohol):No (Caffine):Yes (Illicit Drugs): REHAB (Sexually Active):Yes (Smoking): status: Current every day smoker Problems Problem Type SNOMED Code ICD Code Onset Dates Problem Status W/U Status Risk Notes Problem Opioid dependence (55287360) Opioid dependence, uncomplicated (F11.20) Active confirmed Problem Post-traumatic stress disorder (07887901) Post-traumatic stress disorder, unspecified (F43.10) Active confirmed Problem Insomnia (153055967) Insomnia, unspecified (G47.00) Active confirmed Plan Of Treatment No Information Medical (General) History Medical History History ICD Code drug abuse Surgical History Surgery Date(Month/Year) tonsillectomy 2004
--- OUTSIDE RECORDS SUMMARY | 2025-02-23 14:56 | XMS_ITS | Data Portability ---
Author Organization [facility] Simon Castillo [facility], [facility] Address [address] [facility] [place] [address] Care Team Providers Care [employer] Developer Name Role Phone JASON RODRIGUEZ Primary Care Provider Assessment Encounter Date Assessment Date Assessment LastModified by Organization Details LastModified Time 03/03/2023 03/03/2023 Was seen by Michael, not walk in. [email or web address] Not available 05/11/2023 19:40:01 11/16/2024 11/16/2024 Annual gynecological exam performed. Patient will come back in a year unless there are new symptoms. [email or web address] Not available 11/16/2024 15:13:42 Plan of Treatment Reminders Order Date Submit Date Provider Last Modified By Organization Details Last Modified Time Details Appointments None recorded. Lab urinalysis, dipstick 2024 025 [email or web address] [facility] [address] [place], [address], 5 18:34:56 pap, LB + HR HPV 2024 025 [email or web address] [facility] ([facility]), [address] [place], [address], 5 16:08:55 beta-HCG, qualitative , serum or plasma 2024 025 Qloo [facility], [address] [place] [address], [address] [place], [address], 5 07:56:20 CBC 2024 025 [place] [facility], [address], [facility] 1, [place], [address], 5 17:05:22 thyrotropin , QN, serum or plasma 2024 025 [facility], [address], [facility] 1, [place], [address], 5 17:39:23 estradiol, serum 2024 025 CURT [facility], [address] [place] [address], [address], [place], [address], 5 07:56:18 FSH (follicle-s timulating hormone), serum 2024 025 [email or web address] [facility], [address] [place] [address], [address], [place], [address], 5 17:46:35 lh (luteinizin g hormone), serum 2024 025 [email or web address] [facility], [address] [place] [address], [address], [place], [address], 5 17:46:35 SARS CoV 2 RNA, QL, nasopharynx 2023 024 [email or web address] [facility] ([facility]), [address] [place] [address], [address], 4 18:36:28 rapid flu (A+B), PCR 2023 024 [email or web address] [facility] ([facility]), [address] [place] [address], [address], 4 18:36:29 Referral None recorded. Procedures None recorded. Surgeries None recorded. Imaging None recorded. Medication Orders amlodipine [address] [id number], [address], [address], [place], [address], 5 16:09:13 metoprolol tartrate 25 [id number], [address], [address], [place], [address], 5 16:09:13 amlodipine 5 mg tablet 2024 025 [facility] #[id number], [address], [address], [place], [address], 5 17:21:02 metoprolol tartrate 25 mg tablet [id number], [address], [address], [place], [address], 5 17:21:02 benzonatate 100 mg capsule 2023 024 [email or web address] [id number], [address], [address], [place], [address], 5 16:26:11 Patient TargetsNo targets recorded. Patient Instructions Encounter Date Encounter Id Patient Instructions Last Modified By Organization Details Last Modified Time 12/26/2024 [id number] We discussed going back to ER with her symptoms [email or web address] Not available 12/26/2024 11:54:07 Reason for Referral None Reported. Results Created Date Observation Date Name Description Value Unit Range Abnormal Flag Note LastModifiedBy Organization Detail LastModifiedTime 03/03/20 23 03/04/2023 CHLAM YDIA/ N. GONOR [...] targe t testi ng is avail able; 46825 (C. trach omati s) or 48000 (N. gonor rhoea e). Not Available [facility] [address] [address] [place], [address], 03/04/2023 12:15:24 03/03/2003/04/2023 CHLAM YDIA/ N. GONOR RHOEA E RNA, TMA, UROGE NITAL neisseria gonorrhoeae RNA, tma, urogenital NOT DETECT ED not detect ed normal Not Available [facility] [address] [address] [place], [address], 03/04/2023 12:15:24 03/03/20 23 03/04/2023 CHLAM YDIA/ [...] clini dorie purpo ses. For addit ional infor mervat garcia e refer to https ://ed ucati on.qu sandordi [employer]. com/f aq/FA Q154 (This link is being provi ded for infor dario mendoza/ nadia tripp l purpo ses only. ) Not Available [facility] [address] [place], [address], 03/04/2023 12:15:24 03/03/20 23 03/03/2023 SARS CoV 2 RNA, QL, nasop haryn x COVID negati ve Not Available [facility] [address] [place], [address], 03/03/2023 16:13:45 05/14/19 24 05/14/2023 SARS CoV 2 RNA, QL, nasop haryn x COVID negati ve Not Available [facility]) [address] [place], [address], 05/14/2023 18:06:24 05/14/19 24 05/14/2023 rapid flu (A+B) , PCR Influenza A positi ve Not Available [facility]) [address] [place], [address], 05/14/2023 18:06:33 05/14/19 24 05/14/2023 rapid flu (A+B) , PCR Influenza B negati ve Not Available [facility]) [address] [place], [address], 05/14/2023 18:06:33 11/17/19 25 11/16/2024 CBC WBC 11.7 x10 4.0-10 .5 high Not Available [facility] [address] [facility] [address], [place], [address], 11/16/2024 17:05:22 11/17/19 25 11/16/2024 CBC RBC 4.37 x10 3.50-5 .50 Not Available [facility] [address] [facility] 1, [place], [address], 11/16/2024 17:05:22 11/17/19 25 11/16/2024 CBC HGB 14.3 g/dL 12.0-1 6.0 Not Available [facility] [address] [facility] 1, [place], [address], 11/16/2024 17:05:22 11/17/19 25 11/16/2024 CBC HCT 42.3 % 37.0-4 7.0 Not Available [facility] [address], [place], [address], 11/16/2024 17:05:22 11/17/19 25 11/16/2024 CBC MCV 96.8 fL 80.0-9 9.9 Not Available [facility] [address], [place], [address], 11/16/2024 17:05:22 11/17/1911/16/2024 CBC MCH 32.7 pg 27.0-3 2.0 high Not Available [facility] [address] [facility] 1, [place], [address], 11/16/2024 17:05:22 11/17/19 25 11/16/2024 CBC MCHC 33.7 g/dL 32.0-3 6.0 Not Available [facility] [address] [facility] 1, [place], [address], 11/16/2024 17:05:22 11/17/19 25 11/16/2024 CBC RDW 13.8 % 11.5-1 4.5 Not Available [facility] [address] [facility] 1, [place], [address], 11/16/2024 17:05:22 11/17/19 25 11/16/2024 CBC plt 185.8 x10 140.0- 451.0 Not Available [facility] [address] [facility] 1, [place], [address], 11/16/2024 17:05:22 11/17/19 25 11/16/2024 CBC lymphocytes % 26.2 % 20.0-5 0.0 Not Available [facility] [address] [facility], [place], [address], 11/16/2024 17:05:22 11/17/19 25 11/16/2024 CBC granulcytes % 64.1 % 30.0-7 0.0 Not Available [facility] [address] [facility] [address], [place], [address], 11/16/2024 17:05:22 11/17/19 25 11/16/2024 CBC monocytes % 5.4 % 2.0-16 .0 Not Available [facility] [address] [facility] [address], [place], [address], 11/16/2024 17:05:22 11/17/19 25 11/16/2024 CBC granulcytes# 7.5 x10 Not Ivet ilable [facility] [address] [facility] [address], [place], [address], 11/16/2024 17:05:22 11/17/19 25 11/16/2024 CBC lymphocytes # 3.1 x10 Not Available [facility] [address] [facility] [address], [place], [address], 11/16/2024 17:05:22 11/17/19 25 11/16/2024 CBC monocytes # 0.6 x10 Not Avai lable [facility] [address] [facility] [address], [place], [address], 11/16/2024 17:05:22 11/17/1911/16/2024 TSH TSH 0.92 uIU/m L 0.49-3 .82 Not Available [facility] [address] [address], [place], [address], 11/16/2024 17:39:23 11/17/19 25 11/17/2024 ESTRA DIOL estradiol 60 pg/mL normal Refer ence Range Folli cular Phase : 19-14 4 Mid-C ycle: 64-35 7 Lutea l Phase : 56-21 4 Postm enopa usal: < or = 31 Refer ence range estab lishe d on post- puber leonardo patie nt popul ation . No pre-p ubert al refer ence range estab lishe d using this assay . For any patie nts for whom low Estra diol level s are antic ipate d (e.g. males , pre-p ubert al child basilio and hypog onada l/pos t-men opaus al femal es), the [facility] Estra diol, Ultra sensi tive, LCMSM S assay is recom broderick morris (orde r code [id number] ). Mervat thao note: patie nts being treat ed with the drug fulve stran t (Fasl odex( R)) have demon strat ed signi fican t inter feren ce in immun oassa y metho ds for estra diol measu remen t. The cross react ivity could lead to false ly eleva daniel estra diol test resul ts leadi ng to an inapp ropri ate clini dorie asses sment of estro gen statu s. [facility] order code [id number] -Estr adiol , Ultra sensi tive LC/MS /MS demon strat es negli gible cross react ivity with fulve stran t. Not Available [facility] [address] [address] [place], [address], 11/17/2024 07:56:18 11/17/1911/17/2024 HCG, TOTAL , QL HCG, total, ql NEGATI VE see note: normal Refer ence Range : Refer ence Range Non-P regna nt: Negat rancho Pregn ant: Posit rancho Not Available [facility] [address] [address] [place], [address], 11/17/2024 07:56:20 11/17/19 25 11/17/2024 FSH AND LH FSH 2.5 mIU/m L normal Refer ence Range Folli cular Phase 2.5-1 0.2 Mid-c ycle Peak 3.1-1 7.7 Lutea l Phase 1.5- 9.1 Postm enopa usal 23.0- 116.3 Not Available [address], [address], 11/17/2024 07:56:21 11/17/19 25 11/17/2024 FSH AND LH LH 3.6 mIU/m L normal Refer ence Range Folli cular Phase 1.9-1 2.5 Mid-C ycle Peak 8.7-7 6.3 Lutea l Phase 0.5-1 6.9 Postm enopa usal 10.0- 54.7 Not Available [address], [address], 11/17/2024 07:56:21 11/18/19 25 11/19/2024 THINP REP TIS PAP AND HPV MRNA E6/E7 clinical information: normal Lisset l exam Not Available [address], [address], 11/19/2024 22:28:43 11/18/19 25 11/19/2024 THINP REP TIS PAP AND HPV MRNA E6/E7 LMP: normal 63479 025 Not Available [address], [address], 11/19/2024 22:28:43 11/18/19 25 11/19/2024 THINP REP TIS PAP AND HPV MRNA E6/E7 prev. Pap: normal NONE GIVEN Not Available [address], [address], 11/19/2024 22:28:43 11/18/19 25 11/19/2024 THINP REP TIS PAP AND HPV MRNA E6/E7 prev. BX: normal NONE GIVEN Not Available [address], [address], 11/19/2024 22:28:43 11/18/19 25 11/19/2024 THINP REP TIS PAP AND HPV MRNA E6/E7 source: normal Cervi x, Endoc ervix Not Available [address] [address] [place], [address], 11/19/2024 22:28:43 11/18/19 25 11/19/2024 THINP REP TIS PAP AND HPV MRNA E6/E7 statement of adequacy: normal Satis facto ry for evalu ation . Endoc ervic al/tr ansfo rmati on zone compo nent absen t. Not Available [address] [address] [place], [address], 11/19/2024 22:28:43 11/18/19 25 11/19/2024 THINP REP TIS PAP AND HPV MRNA E6/E7 interpretati on/result: normal Cytol ogy Resul ts: Negat rancho for intra epith elial lesio n or malbecky childers . Not Available [address] [address] [address], [place], [address], 11/19/2024 22:28:43 11/18/19 25 11/19/2024 THINP REP TIS PAP AND HPV MRNA E6/E7 infection: normal Shift in vagin al darcy sugge stive of bacte rial vagin osis. Not Available [address] [address] [place], [address], 11/19/2024 22:28:43 11/18/1911/19/2024 THINP REP TIS PAP AND HPV MRNA E6/E7 comment: normal This Pap test has been evalu ated with the ThinP rep(R ) Imagi ng Syste m. Not Available [address] [address] [place], [address], 11/19/2024 22:28:43 11/18/19 25 11/19/2024 THINP REP TIS PAP AND HPV MRNA E6/E7 cytotechnolo gist: normal MDG, CT( CP) CT Scree mirna Locat ion: [place] [address] [place] [address] CLIA: [id number] Slide prepa ratio n perfo rmed at: [facility], [address] [facility] [place], [address] CLIA: [id number] Not Available [facility] [address] [place], [address], 11/19/2024 22:28:43 11/18/19 25 11/19/2024 THINP REP TIS PAP AND HPV MRNA E6/E7 comment EXPLA NATOR Y NOTE: The Pap is a scree mirna test for cervi dorie cance r. It is not a diagn ostic test and is subje ct to false negat rancho and false posit rancho resul ts. It is most relia ble when a satis facto ry sampl e, regul christin obtai charles, is submi tted with relev ant clini dorie findi ngs and histo ry, and when the Pap resul t is evalu ated along with histo valentina and curre nt clini dorie infor matlisa n. Not Available [facility] [address] [place], [address], 11/19/2024 22:28:43 11/18/19 25 11/19/2024 THINP REP TIS PAP AND HPV MRNA E6/E7 HPV MRNA E6/E7 Not Detect ed not detect ed normal Metho dolog y: Trans cript ion-M ediat ed Ampli ficat ion This assay detec ts E6/E7 viral messe nger RNA (mRNA ) from 14 high- risk HPV types (16,1 8,31, 33,35 ,39,4 5,51, 52,56 ,58,5 9,66, 68). Cervi dorie sourc es are requi red for HPV testi ng. If a vagin al sourc e from a patie nt who has had a total hyste recto my with remov al of cervi x was submi tted, pleas e conta ct the testi ng labor atory for alter nativ e testi ng optio ns. For addit ional infor dario mendoza, pleiraj e refer to http: //edu sary ulloaia gnost ics.c om/fa q/FAQ 129v1 (This link if provi ded for infor dario mendoza/ nadia tripp l purpo ses only. ) Not Available [facility] [address] [place], [address], 11/19/2024 22:28:43 12/27/19 25 12/26/2024 urina lysis , dipst ick Leukocytes Negati ve Not Available [facility]) [address] [place] [address], [address], 12/26/2024 11:24:42 12/27/19 25 12/26/2024 urina lysis , dipst ick Nitrite negati ve Not Available [facility]) [address] [place] [address], [address], 12/26/2024 11:24:42 12/27/19 25 12/26/2024 urina lysis , dipst ick Urobilinogen .2 Not Available [facility]) [address] [place] [address], [address], 12/26/2024 11:24:42 12/27/19 25 12/26/2024 urina lysis , dipst ick Protein 30 Not Available [facility] ([facility]) [address] [place] [address], [address], 12/26/2024 11:24:42 12/27/19 25 12/26/2024 urina lysis , dipst ick pH 7.0 Not Available [facility]) [address] [place] [address], [address], 12/26/2024 11:24:42 12/27/19 25 12/26/2024 urina lysis , dipst ick Blood Negati ve Not Available [facility]) [address] [place] [address], [address], 12/26/2024 11:24:42 12/27/19 25 12/26/2024 urina lysis , dipst ick Specific [place] 1.020 Not Available [facility] ( [facility]) [address] [place], [address], 12/26/2024 11:24:42 12/27/19 25 12/26/2024 urina lysis , dipst ick Ketone Negati ve Not Available [facility] [address] [place], [address], 12/26/2024 11:24:42 12/27/19 25 12/26/2024 urina lysis , dipst ick Bilirubin Negati ve Not Available [facility] [address] [place], [address], 12/26/2024 11:24:42 12/27/19 25 12/26/2024 urina lysis , dipst ick Glucose Negati ve Not Available [facility]) [address] [place], [address], 12/26/2024 11:24:42 12/27/19 25 12/26/2024 urina lysis , dipst ick Appearance Clear Not Available [facility] [address] [place], [address], 12/26/2024 11:24:42 12/27/19 25 12/26/2024 urina lysis , dipst ick Color Yellow Not Available [facility]) [address] [place], [address], 12/26/2024 11:24:42 Result Notes None recorded. Problems Name Problem SNOMED Code Status Onset Date Resolution Date Notes Provider Name and Address Organization Details Recorded Time Anxiety 83786761 Active 2022 ANXIETY; 02/06/202 3 5:29PM by Radha Will, Office Visit; Promoted; acuity set as *; ERICKA steel [facility] 5 15:32:20 Bipolar I disorder 552228581 Active 2022 BIPOLAR I DISORDER; 3 5:29PM by Radha Will, Office Visit; Promoted; acuity set as *; ERICKA steel [facility] 5 15:32:19 Obsessiv e-compul sive disorder 559401253 Active 2022 OCD (OBSESSIV E COMPULSIV E DISORDER) ; 3 5:29PM by Radha Will, Office Visit; Promoted; acuity set as *; ERICKA steel [facility] 5 15:32:19 Drug abuse 27115216 Active 2022 HX OF INTRAVENO US DRUG USE, IN REMISSION ; Recorded 3 5:29PM by Radha Will, Office Visit; Promoted; acuity set as *; ERICKA steel [facility] 5 15:32:19 Depressi ve disorder 82774100 Active 2022 Depressio n - Status is Inactive; 1 10:04AM by Ericka Brandon, Office Visit; Promoted; acuity set as *; ; Start Date : 1 DEPRESS ION; 3 5:29PM by Radha Will, Office Visit; Promoted; acuity set as *; ERICKA steel [facility] 5 15:32:19 [facility] sh[facility]ank johnson 23296184 Active 2022 Jason Rodriguez MD [address] [place] [address], [address] , [facility] 5 17:17:34 Harmful pattern of use of alcohol 52429016 Active 2022 ERICKA ALEKSANDR [facility] 5 15:32:19 Sexually transmit daniel infectio us disease 6137160 Completed 202210/11/2024 ERICKA BRANDON [facility] 5 15:32:29 Substanc e use disorder Active 2024 ERICKA ALEKSANDR [facility] 5 17:23:17 Amenorrh ea 92310566 Active 2024 Jason Rodriguez MD [address] [place] [address] 5, [facility] 5 16:04:49 Irregula r periods 40068470 Active 2024 Jason Rodriguez MD [address] [place] [address], [facility] 5 16:05:48 History of substanc e use disorder Active 2024 Jason Rodriguez MD [address] [place] [address], [address], [facility] 5 16:09:27 Problem Notes None recorded. Procedures Surgical History Date Name Laterality Status Provider Name and Address Organization Details Recorded Time 02/10/2023 Incision/D rainage-Si mple completed Frankie Omer MD [address] [place] [address], [phone], [facility] 02/10/2023 12:13:22 Imaging Results None recorded. Procedure [...] Not Available Not Available Not Available sertraline 100 mg tablet TAKE 1 TABLET BY MOUTH EVERY DAY active Not Available Not Available No t Available thiamine HCl (vitamin B1) 100 mg tablet TAKE ONE TABLET BY MOUTH DAILY FOR 30 DAYS 10/11 completed Not Available Not Available Not Available hydroxyzine HCl 50 mg tablet TAKE 2 TABLETS BY MOUTH AT BEDTIME NEEDED FOR INSOMNIA active Not Available Not Available No t Available amlodipine 5 mg tablet TAKE 1 TABLET BY MOUTH EVERY DAY active Not Available Not Available No t Available ciprofloxac in 500 mg tablet TAKE 1 [...] Not Available Not Available Not Available gabapentin 300 mg capsule TAKE 1 CAPSULE BY MOUTH 3 TIMES A DAY active Not Available Not Available No t Available hydrochloro thiazide 25 mg tablet TAKE ONE TABLET BY MOUTH DAILY FOR 30 DAYS 10/11 completed Not Available Not Available Not Available gabapentin 100 mg capsule TAKE 1 CAPSULE BY MOUTH THREE TIMES A DAY 11/16 completed Not Available Not Available Not Available losartan 50 mg-hydrochl orothiazide 12.5 mg tablet TAKE 1 TABLET BY MOUTH EVERY DAY FOR 30 DAYS 10/11 completed Not Available Not Available Not Available cefdinir 300 mg capsule TAKE 1 CAPSULE BY MOUTH EVERY 12 HOURS FOR 10 DAYS 10/11 completed Not Available Not Available Not Available sertraline 50 mg tablet TAKE 1 TABLET BY MOUTH EVERY DAY 11/16 completed Not Available Not Available Not Available Ventolin HFA 90 mcg/actuati on aerosol inhaler INHALE 2 PUFFS BY MOUTH EVERY 4 HOURS NEEDED 10/11 completed Not Available Not Available Not Available metoprolol tartrate 25 mg tablet TAKE 1 TABLET BY MOUTH TWICE A DAY active Not Available Not Available No t Available Tab-A-Db 400 mcg tablet TAKE ONE TABLET [...] Updated DateTime 4 162.56 cm 29.4 kg/m2 54516.3 g 98 % 98 % 97 /min 20 /min 97.7 [degF] 150/80 mm[Hg] Halley Arauz [facility] 4 17:50:15 Date Recorded Body weight Oxygen saturation Oxygen saturation in Arterial blood by Pulse oximetry Heart rate Systolic And Diastolic Provider Name and Address Organization Details Last Updated DateTime 5 02319.8 2 g 97 % 97 % 107 /min 182/120 mm[Hg] ERICKA BRANDON [facility] 5 16:29:22 Date Recorded Body weight Body mass index (BMI) Body height Heart rate Systolic And Diastolic Provider Name and Address Organization Details Last Updated DateTime 11/16/2024 85207 g 26.9 kg/m2 162.56 cm 90 /min 122/92 mm[Hg] MARBIN HURST [facility] 5 15:20:46 Date Recorded Body height Body mass index (BMI) Body weight Oxygen saturation Oxygen saturation in Arterial blood by Pulse oximetry Heart rate Body temperature Systolic And Diastolic Provider Name and Address Organization Details Last Updated DateTime 5 162.56 cm 27.4 kg/m2 36174.2 9 g 99 % 99 % 92 /min 98.2 [degF] 152/100 mm[Hg] Shelia Merino [facility] 5 11:29:38 Date Recorded Body height Body mass index (BMI) Body weight Oxygen saturation Oxygen saturation in Arterial blood by Pulse oximetry Heart rate Systolic And Diastolic Provider Name and Address Organization Details Last Updated DateTime 3 162.56 cm 28.3 kg/m2 07012.7 4 g 98 % 98 % 120 /min 160/100 mm[Hg] MARBIN HURST [facility] 3 15:59:20 Social History Question Answer Notes LastModified by Organizat ion Details LastModified Time Tobacco Smoking Status Current Every Day Smoker MARBIN steel [facility] 03/03/2023 15:56:20 What Was The Date Of Your Most Recent Tobacco Screening? 12/26/2024 [email or web address] Information not available 12/26/2024 Sex: Unknown Functional Status Question Answer Note LastModified by Organization D etails LastModified Time What is your level of alcohol consumption? Heavy [email or web address] Information not available 03/03/2023 Mental Status None recorded. Family History Relationship Description Onset Age of this Age Resolved Age Notes LastModified by Organization Details LastModified Time Mother Essential hypertension [email or web address] Not available 15:22:12 Medical History No medical history recorded. Gynecological HistoryNo gynecological history recorded. Obstetrics History GPAL:G 0 P 0 0 0 0 Immunizations Vaccine Type Date Status Note Provider Nam e and Address Organization Details Recorded Time Influenza, split virus, trivalent, preservative 6 completed Not Available [facility] 11/02/2022 02:49:32 DTaP 9 completed Not Available [facility] 11/16/2024 15:05:44 polio, unspecified formulation 9 completed Not Available [facility] 11/16/2024 15:05:44 DTaP 0 completed Not Available [facility] 11/16/2024 15:05:44 polio, unspecified formulation 0 completed Not Available [facility] 11/16/2024 15:05:44 DTaP 0 completed Not Available [facility] 11/16/2024 15:05:44 polio, unspecified formulation 0 completed Not Available [facility] 11/16/2024 15:05:44 Hib, unspecified formulation 1 completed Not Available [facility] 11/16/2024 15:05:44 MMR 1 completed Not Available [facility] 11/16/2024 15:05:44 DTaP 1 completed Not Available [facility] 11/16/2024 15:05:44 polio, unspecified formulation 1 completed Not Available [facility] 11/16/2024 15:05:44 DTaP 5 completed Not Available [facility] 11/16/2024 15:05:44 MMR 5 completed Not Available [facility] 11/16/2024 15:05:44 Hep B, unspecified formulation 9 completed Not Available [facility] 11/16/2024 15:05:44 Hep B, unspecified formulation 0 completed Not Available [facility] 11/16/2024 15:05:44 Hep B, unspecified formulation 0 completed Not Available [facility] 11/16/2024 15:05:44 Td (adult), 2 Lf tetanus toxoid, preservative free, adsorbed 5 completed Not Available [facility] 11/16/2024 15:05:44 Hep A, ped/adol, 2 dose 5 completed Not Available [facility] 11/16/2024 15:05:44 Hep A, adult 6 completed Not Available [facility] 11/16/2024 15:05:44 HPV, quadrivalent 7 completed Not Available [facility] 11/16/2024 15:05:44 HPV, quadrivalent 7 completed Not Available [facility] 11/16/2024 15:05:44 HPV, quadrivalent 7 completed Not Available [facility] 11/16/2024 15:05:44 Tdap 4 completed Not Available [facility] 11/16/2024 15:05:44 Tdap 1 completed Not Available [facility] 11/16/2024 15:05:44 Past Encounters Encounter ID Performer Location Encounter Start Date Encounter Closed Date Diagnosis/Indication Diagnosis SNOMED-CT Code Diagnosis ICD10 Code Diagnosis IMO Codes Diagnosis Note [id number] Frankie Omer MD [facility] ([facility]) [address] [place] [phone] 5 12/10/2022 16:13:37 12/10/2022 17:34:20 Essential hypertension 29863031 I10 Pressure is significan tly elevated. We will start medication today. Patient was encouraged to follow-up with PCP next week with a log of blood pressure readings from home. Harmful pa ttern of use of alcohol 30263973 F10.10 Recommend cessation from alcohol use [id number] Frankie Omer MD [facility] ([facility]) [address] [place] [phone] 5 02/10/2023 10:07:09 02/10/2023 14:30:03 Cellulitis of skin 625174160 L03.90 Patient does have significan t cellulitis of her toe. Pustule was lanced and small amount of pustular material was obtained. Encouraged follow-up if symptoms do not improve. [id number] GRISELDA TOMPKINS [facility] ([facility]) [address] [place] [address] [place] [address] 03/03/2023 15:31:35 05/11/2023 19:40:05 [id number] Jason Rodriguez MD [facility] ([facility]) [address] [place] [phone] 5 03/03/2023 15:34:04 03/03/2023 17:26:16 Essential hypertension 47622041 I10 Acute sinusitis 56232546 J01.90 Tobacco user 134716648 Z 72.0 Bronchospasm 0413386 J98 .01 High risk sexual behavior 052625551 Z72.51 [id number] GRISELDA TOMPKINS [facility] ([facility]) [address] [place] [phone] 5 05/14/2023 17:26:35 05/14/2023 18:51:48 Cough 64586839 R05.9 COVID negative.F ilya A positive.F ilya B negative. Influenza A virus present 6244852934 08 J09.X2 Influenza A positive today. Patient [...] understand ing. Edema of l ower extremity 759109572 R60.0 Recommende d checking labs today. Patient declines and states she will make appointmen t with PCP. Encouraged to increase water intake. Reassured with minimal edema noted today. If swelling and leg pain becomes severe, should go to ED. Patient verbalized understand ing. [id number] Jason Rodriguez MD [facility] ([facility]) [address] [place] [phone] 5 10/11/2024 16:15:56 10/11/2024 17:23:12 Essential hypertension 72666125 I10 68432 Substance use disorder 4212699054 F19.90 86419487 alcohol and drugs. She is in a recovery program. [id number] Jason Rodriguez MD [facility] ([facility]) [address] [place] [address] 63827-969 5 11/16/2024 15:05:09 11/16/2024 16:19:13 Essential hypertension 61156280 I10 53953 Amenorrhea 11170813 N91. 2 12751 Well woman health examination 811118755 Z01.419 598147 Irregular periods 846587 07 N92.6 History of substance use disorder 9451172890 F19.11 564994 clean for awhile. [id number] AJ LOVE APRN [facility] ([facility]) [address] [place] [address] 12/26/2024 11:13:32 12/26/2024 12:25:48 Dysuria 89203245 R30.0 15847 Right flank pain 6580319 09 R10.9 885120 Health Concerns Section Related Observation LastModified by Organization Detai ls LastModified Time None Recorded Concern Status LastModified by Organization Details LastModified Time None Recorded Advance Directives Directive None Recorded Payers Insurance Date Sequence Insurance Name Policy Number Policy Swenson Covered Member ID Swenson Member ID Guarantor Name 10/11/2024 1 [place] Kari Sawyer [id number] Kari Sawyer 01/07/2025 1 [employer] [place] [place]MEDICA[place]PLACEMENT - HMO) [id number] Kari Sawyer [id number] Kair Sawyer 01/07/2025 [place] [facility] Kari Sawyer [id number] Kari Sawyer Notes Date Note Type Note Provider Name and Address Organization Details Recorded Time 03/03/2023 text/html CoughReported by PatientHPIFor severity, patient reportsworsening. For context, patient reportssmoker. For associated symptoms, patient reportsshortness of breathbut reportsno fever,no chills,no chest pain,no heartburn,no nausea,no vomiting, andno edema. For quality, patient reportsproductive. Hypertension IM/FMReported by PatientHPIFor self care, patient reportssmoker,not watching diet, andnot limiting alcohol intake. For associated symptoms, patient reportsshortness of breath. For quality, patient reportshere for check-up. For alleviating factors, patient reportsmedication. Jason Rodriguez MD [address] [place] [address], [phone], [facility] 03/03/2023 16:26:40 05/14/2023 text/html Upper Respirator y SymptomsReported by PatientUpper Respiratory SymptomsFor quality, patient reportsproductive coughandcongested. For context, patient reportssick contact. For associated symptoms, patient reportsfatigue,morning cough,sore throat, andchills. For location, patient reportshead. For severity, patient reportsmild. For duration, patient reportssymptoms lasting less than 2 weeks. For onset/timing, patient reportsgradual.ROS as noted in the HPI Patient is a 32 year old female who presents to the walk in clinic today fever, body aches, chills, fatigue, and congestion. Patient reports symptoms for 4 days. Patient also reports bilateral ankle swelling and leg pain for 4 days. Reports she has not been drinking water but has been drinking gatorade. GRISELDA TOMPIKNS [address] [place], [address], [facility] 05/14/2023 18:39:08 10/11/2024 text/html Has been off all of her BP meds for a while.Would like to have some paper work filled out today for housing. Jason Rodriguez MD [address] [place], [address], [facility] 10/11/2024 17:21:50 11/16/2024 text/html Annual GYNReport ed by PatientHistoryFor history, patient reportsno gynecologic complaints.Genitourina ry symptomsFor menstrual cycle, patient reportsnormal menses. For urinary symptoms, patient reportsno hematuriaandno incontinence. For vulva, patient reportsno genital lesion. For vagina, patient reportsnormal vaginal discharge.Breast symptomsFor breast, patient reportsbreast painbut reportsno breast lumpandno nipple discharge.Endocrine symptomsFor sexual complaints, patient reportsno sexual complaints,no pain during intercourse, andnormal libido. For menopausal symptoms, patient reportsno menopausal symptomsandnormal vaginal lubrication.Psychologi dorie symptomsFor psychological symptoms, patient reportsno depression,no anxiety, andno pmdd. Hypertension IM/FMReported by PatientHPIFor associated symptoms, patient reportsshortness of breathandfatigue. For quality, patient reportshere for check-up. For alleviating factors, patient reportsmedication. Jason Rodriguez MD [address] [place], [address], [facility] 11/16/2024 16:10:55 12/26/2024 text/html walk inStarted 12/21- seen in ED told UTI, had CT- c/o continued pain to right flank AJ LOVE APRN [address] [place], [address], [facility] 12/26/2024 11:54:35 OBGyn Episode No OBEpisode recorded.
--- OUTSIDE RECORDS SUMMARY | 2025-02-23 14:56 | XMS_ITS | Clinical Summary ---
Author Organization [facility] Address [address] Attn: [place] [address] Care Team Providers Care Color Finisher Name Role Phone Unavailable Primary Care Provider [...] on file Legal Sex Female 4:43 PM ENGINEERING MODEL MAKER Gender Identity Not on file Sexual Orientation Not on file Last Filed Vital Signs Vital Sign Reading Time Taken Comments Blood Pressure 101/47 04/04/2018 4:41 AM ENGINEERING MODEL MAKER Pulse 82 04/04/2018 3:51 AM ENGINEERING MODEL MAKER Temperature 37.6 C (99.6 F) 04/04/2018 4:41 AM ENGINEERING MODEL MAKER Respiratory Rate 16 04/04/2018 4:41 AM ENGINEERING MODEL MAKER Oxygen Saturation - - Inhaled Oxygen Concentration - - Weight 67.1 kg (148 lb) 04/04/2018 1:23 AM ENGINEERING MODEL MAKER Height 162.6 cm (5' 4 ) 04/04/2018 1:23 AM ENGINEERING MODEL MAKER Body Mass Index 25.4 04/04/2018 1:23 AM ENGINEERING MODEL MAKER Plan of Treatment Health Maintenance Due Date Last Done Comments DTAP/TDAP/TD VACCINES (2 - Tdap) 10/12/2004 10/12/19 05 HPV/Cotest (21-29) 2009 HPV VACCINES (1 - 3-dose SCD M series) 12/23/2015 CERVICAL CANCER SCREENING 2018 HPV/Cotest (30-65) 2018 PAP SMEAR 2018 INFLUENZA VACCINE (#1) 2024 HEPATITIS B VACCINES Completed 07/31/1999, 04/13/1999, 02/20/1999
== END 2025-02-23 13:18 | disposition home or self-care (01) ==
PROVIDERS: Emergency Provider Emergency Medicine; PCP Family Medicine
DX: S09.8XXA Other specified injuries of head, initial encounter (principal); F17.210 Nicotine dependence, cigarettes, uncomplicated; W20.8XXA Other cause of strike by thrown, projected or falling object, initial encounter
CPT/HCPCS: 70450; 99284

== ENCOUNTER 2025-03-14 15:08 | Emergency (ER) | payer BC, MEDICAID, SELFPAY ==
[2025-03-14 15:13] VITALS: BP 179/114; PULSE 115; TEMP 36.7; O2SAT 98; BMI 27.8
[2025-03-14 15:51] LABS: Hematocrit 39.7 % (36-47); Hemoglobin 13.70 g/dL (11.27-16.99); Mean Corpuscular HGB Conc 34.5 g/dL (30-55); Mean Corpuscular Hemoglobin 32.2 pg (27-33); Mean Corpuscular Volume 93.4 fl (85-98); Nucleated Red Blood Cells % 0 %; Platelet Count 269 10^3/cmm (157-399); Red Blood Count 4.25 10^6/uL (3.85-5.65); White Blood Count 9.61 10^3/uL (3.29-11.43)
[2025-03-14 16:18] LABS: Alanine Aminotransferase 23 U/L (0-33); Albumin Level 4.3 g/dL (3.5-5.2); Alcohol Level 223 mg/dL (0-10); Alkaline Phosphatase 212 U/L (35-105); Anion Gap 14.3 (5-19); Aspartate Amino Transferase 27 U/L (0-32); Blood Urea Nitrogen 12 mg/dL (6-20); Calcium 8.7 mg/dL (8.5-10.5); Carbon Dioxide 25 mmol/L (22-29); Chloride 104 mmol/L (98-107); Globulin 3.0 g/dL (1.3-4.6); Glucose 103 mg/dL (65-115); Osmolality Calculated 290 mOsm/kg (285-295); Potassium 3.3 mmol/L (3.5-5.1); Sodium 140 mmol/L (136-145); Total Protein 7.3 g/dL (6.6-8.7)
--- NOTE | 2025-03-14 16:20 | ED.C_ITS ---
HPI - Psych 2 General: Chief Complaint: Psychiatric Symptoms Stated Complaint: MHE Time Seen by Provider: 03/14/25 15:24 History of Present Illness: 34-year-old female who presents to the e mergency room acutely intoxicated. She was drinking right up until she presented to the emergency room. She presents here stating she wants to be admitted for detox. She has not previously had seizures with withdrawal in the past. She is wanting to go to an inpatient facility. She is awake and alert she denies any specific homicidal or suicidal intent Related Data Home Medications ?Medication ?Instructions ?Recorded ?Confirmed amlodipine 5 mg tablet 5 mg PO DAILY 11/01/2411/01 metoprolol tartrate 25 mg tablet 12.5 mg PO BID 11/01/24 Previous Rx's ?Medication ?Instructions ?Recorded gabapentin 300 mg capsule 300 mg PO TID #90 caps 11/01 hydroxyzine HCl 50 mg tablet 100 mg (2 x 50 mg) PO .HS PRN 11/01/24 insomnia #60 tabs sertraline 100 mg tablet (Zoloft) 100 mg PO DAILY #30 tabs 11/01/24 ciprofloxacin HCl 500 mg tablet 500 mg PO BID #20 tabs 12/21/24 (Cipro) Allergies Allergy/AdvReac Type Severity Reaction Status Date / Time No Known Allergies Allergy Verified 03/14/25 15:20 Review of Systems 2 Const: Denies: fever(s) or chills Card: Denies: chest pain Resp: Denies: dyspnea GI: Denies: abdominal pain : Denies: dysuria, urinary frequency or urinary urgency Musc: Denies: neck pain or back pain Skin/Breast: Denies: rash PFSH ED 2 PFSH: Medical History Psychiatric care Anxiety and depression Other alf (current) drug therapy Cannabis use disorder, moderate, in early remission, in controlled environment, dependence Opiate abuse, continuous Methamphetamine use disorder, severe KAITLIN (generalized anxiety disorder) MDD (major depressive disorder) Social History Smoking and tobacco/nicotine status: current every day tobacco/nicotine user cigarettes Packs smoked per day: 1 Years cigarettes smoked: 13 [ Other cigarette details: I am only allowed to have 3 a day but when I get out I will go back. ] Quit status (tobacco/nicotine): not considering quitting Second hand smoke exposure: Yes Current gender identity: Female Physical Exam 2 Const: GENERAL APPEARANCE: cooperative ORIENTATION/CONSCIOUSNESS: Yes awake, Yes oriented to person, Yes oriented to place and Yes oriented to time HENMT: COMMON NORMALS: normocephalic, atraumatic and hearing grossly normal bilaterally HEAD & SCALP: normocephalic and atraumatic Resp: COMMON NORMALS: normal respiratory effort, No retractions, No use of accessory muscles and clear to auscultation bilaterally AUSCULTATION: clear to auscultation bilaterally Cardio: COMMON NORMALS: regular rate, regular rhythm and No murmurs present (Cardio) RATE: regular rate RHYTHM: regular rhythm GI: COMMON NORMALS: Soft to palpation and No hepatosplenomegaly present A USCULTATION: Yes normoactive bowel sounds PALPATION: Yes Soft to palpation, No Tenderness to palpation present (GI), No Guarding due to palpation present (GI) and Yes No hepatosplenomegaly present Extremity: COMMON NORMALS: normal to inspection, capillary refill normal, no clubbing, cyanosis or edema, no calf tenderness and no pedal edema Neuro: SENSORIUM/ORIENTATION: Yes oriented to person, Yes oriented to place and Yes oriented to time Skin: COMMON NORMALS: no rashes or lesions noted GENERAL SKIN EXAM: no rashes or lesions noted Course 2 Vital Signs: Vital signs: Vital Signs Temperature 98.1 F 03/14/25 15:13 Pulse Rate 115 H 03/14/25 15:13 Blood Pressure 179/114 03/14/25 15:13 Pulse Oximetry 98 03/14/25 15:13 Oxygen Delivery Me thod Room Air 03/14/25 15:13 MDM - Psych Medical Decision Making Medical decision making Social determinants: Patient has poor social support currently is homeless has been living with friends. I reviewed the patient's medical record. I reviewed the patient's current home meds. Alternate historians: None Differential diagnosis: Alcoholism, acute alcohol intoxication depression anxiety Lab Review: Labs reviewed no significant findings some very mild hypokalemia she has acute intoxication with blood alcohol at 223. Imaging:None Assessment of risk Level of risk: Moderate Hospitalization considerations: Acutely intoxicated no indication for admission at this time Reexamination: Unchanged Assessment and plan: Patient is acutely intoxicated she is wishing to work on achieving sobriety. She has not previously had withdrawal seizures. Recommend that she be seen for substance abuse counseling. Case management gave this list of facilities nearby that she can go to this was included in her discharge instructions. She is not homicidal or suicidal at this time. Patient be discharged home encouraged to abstain from alcohol and follow-up for assistance with substance abuse. Lab Data 03/14/25 15:46 03/14/25 15:46 Laboratory Results WBC 9.61 10^3/uL (3.29-11.43) 03/14/25 15:46 RBC 4.25 10^6/uL (3.85-5.65) 03/14/25 15:46 Hgb 13.70 g/dL (11.27-16.99) 03/14/25 15:46 Hct 39.7 % (36-47) 03/14/25 15:46 MCV 93.4 fl (85-98) 03/14/25 15:46 MCH 32.2 pg (27-33) 03/14/25 15:46 MCHC 34.5 g/dL (30-55) 03/14/25 15:46 RDW 12.6 % (12.1-15.1) 03/14/25 15:46 Plt Count 269 10^3/cmm (157-399) 03/14/25 15:46 MPV 9.9 fL (7.4-10.4) 03/14/25 15:46 Neut % (Auto) 59.6 % 03/14/25 15:46 Lymph % (Auto) 29.7 % 03/14/25 15:46 [place] % (Auto) 6.1 % 03/14/25 15:46 Eos % (Auto) 3.6 % 03/14/25 15:46 Baso % (Auto) 0.8 % 03/14/25 15:46 Neut # (Auto) 5.72 10^3/uL (1.8-7.7) 03/14/25 15:46 Lymph # (Auto) 2.9 10^3/uL (0.8-4.8) 03/14/25 15:46 [place] # (Auto) 0.6 10^3/uL (0.2-0.9) 03/14/25 15:46 Eos # (Auto) 0.4 10^3/uL (0.0-0.8) 03/14/25 15:46 Baso # (Auto) 0.1 10^3/uL (0.0-0.1) 03/14/25 15:46 Nucleated RBC % (auto) 0 % 03/14/25 15:46 Nucleated RBCs # 0.0 /100WBC 03/14/25 15:46 Sodium 140 mmol/L (136-145) 03/14/25 15:46 Potassium 3.3 mmol/L (3.5-5.1) L 03/14/25 15:46 Chloride 104 mmol/L (98-107) 03/14/25 15:46 Carbon Dioxide 25 mmol/L (22-29) 03/14/25 15:46 Anion Gap 14.3 (5-19) 03/14/25 15:46 BUN 12 mg/dL (6-20) 03/14/25 15:46 Creatinine 0.8 mg/dL (0.5-0.9) 03/14/25 15:46 GFR Calculation 81.2 mL/min (90-130) L 03/14/25 15:46 Glucose 103 mg/dL (65-115) 03/14/25 15:46 Calculated Osmolality 290 mOsm/kg (285-295) 03/14/25 15:46 Calcium 8.7 mg/dL (8.5-10.5) 03/14/25 15:46 Total Bilirubin 0.2 mg/dL (0.15-1.2) 03/14/25 15:46 AST 27 U/L (0-32) 03/14/25 15:46 ALT 23 U/L (0-33) 03/14/25 15:46 Alkaline Phosphatase 212 U/L (35-105) H 03/14/25 15:46 Total Protein 7.3 g/dL (6.6-8.7) 03/14/25 15:46 Albumin 4.3 g/dL (3.5-5.2) 03/14/25 15:46 Globulin 3.0 g/dL (1.3-4.6) 03/14/25 15:46 Ethyl Alcohol 223 mg/dL (0-10) H 03/14/25 15:46 No radiology studies performed this visit Discharge Plan Discharge Patient Disposition: Home Clinical Impression: Alcohol intoxication, Alcohol use disorder, severe, dependence Condition: Stable Prescriptions: No Action amlodipine 5 mg tablet 5 mg PO DAILY metoprolol tartrate 25 mg tablet 12.5 mg PO BID sertraline [Zoloft] 100 mg tablet 100 mg PO DAILY Qty: 30 2RF gabapentin 300 mg capsule 300 mg PO TID Qty: 90 2RF hydroxyzine HCl 50 mg tablet 100 mg PO .HS PRN (Reason: insomnia) Qty: 60 2RF ciprofloxacin HCl [Cipro] 500 mg tablet 500 mg PO BID Qty: 20 0RF Discharge Orders: Discharge ED (Routine); Ordered 03/14/25 Ordered By: Rufino Fong Referrals: Luis Felipe Rodriguez MD [Primary Care Provider, Family Practice] Discharge Diet: Usual diet Discharge Activity: Resume usual activity Patient Instructions: Alcohol Intoxication (ED), Abuse of Alcohol (ED), Opioid Safety, Pain Management, Patient Portal & Phyllis Instructions Activity Restrictions/Additional Instructions: Thank you for choosing [facility] for your healthcare needs today. It is very important that you follow up as instructed or that you return to the Emergency Department should you have concerns or if your condition changes or worsens in any way. Emergency department visits are focused on emergent conditions, in some cases you may require further evaluation on an outpatient basis. You are seen in the emergency room with complaints of wanting to achieve sobriety. You are acutely intoxicated the time you are seen. Your blood alcohol was 223 we recommend that you abstain from alcohol and follow-up on an outpatient facility you are given a list of outpatient facilities that could provide assistance. (Please note that included in your discharge packet is information concerning opioid safety and pain management. This information is given to all patients were discharged from the ER regardless of their discharge diagnosis or the medicines they usually take or are prescribed.) Print Language: Cameroonian Coding Level of Care Code ED Certified Surgical Tech/First Assistant for Mary Cedeño
--- OUTSIDE RECORDS SUMMARY | 2025-03-14 20:48 | XMS_ITS | Encounter Summary ---
Author Organization [employer] [facility] Address [address] [place] [address] Care Team Providers Care Light Fixture Servicer Name Role Phone Unavailable Primary Care Provider Unavailabl e Encounter Details Date Type Department Care Team (Latest Contact Info) Description 01/17/2000 Outpatient Historical HIS [facility] Kevon Rojas MD [address] [place] [phone] Injury, other and unspecified, hand, except finger (Primary Dx) Social History Tobacco Use Types Packs/Day Years Used Date Smoking Tobacco: Never Assessed Comments Unknown Sex and Gender Information Value Date Recorded Sex Assigned at Not on file Legal Sex Female 4:07 AM RECONCILIATION ACCOUNTANT Gender Identity Not on file Sexual Orientation Not on file documented as of this encounter Plan of Treatment Not on file documented as of this encounter Visit Diagnoses Diagnosis Injury, other and unspecified, hand, except finger- Primary documented in this encounter
--- OUTSIDE RECORDS SUMMARY | 2025-03-14 20:48 | XMS_ITS | Clinical Summary ---
Author Organization [facility] Address [address] [place] [address] Phone Care Team Providers Care Inspector Circuitry Negative Name Role Phone Unavailable Primary Care Provider [...] on file Legal Sex Female 4:07 AM FOOD SERVICE CLERK Gender Identity Not on file Sexual Orientation Not on file Last Filed Vital Signs Vital Sign Reading Time Taken Comments Blood Pressure 101/47 04/04/2018 4:41 AM FOOD SERVICE CLERK Pulse 82 04/04/2018 3:51 AM FOOD SERVICE CLERK Temperature 37.6 C (99.6 F) 04/04/2018 4:41 AM FOOD SERVICE CLERK Respiratory Rate 16 04/04/2018 4:41 AM FOOD SERVICE CLERK Oxygen Saturation 99% 04/04/2018 4:41 AM FOOD SERVICE CLERK Inhaled Oxygen Concentration - - Weight 67.1 kg (148 lb) 04/04/2018 1:23 AM FOOD SERVICE CLERK Height 162.6 cm (5' 4 ) 04/04/2018 1:23 AM FOOD SERVICE CLERK Body Mass Index 25.4 04/04/2018 1:23 AM FOOD SERVICE CLERK Plan of Treatment Health Maintenance Due Date Last Done Comments DTAP/TDAP/TD VACCINES (2 - Tdap) 10/12/2004 10/12/19 05 HPV/Cotest (21-29) 2009 CERVICAL CANCER SCREENING 2018 HPV/Cotest (30-65) 2018 PAP SMEAR 2018 INFLUENZA VACCINE (#1) 2024 HEPATITIS B VACCINES Completed 07/31/1999, 04/13/1999, 02/20/1999 HPV VACCINES (No Doses Required) Completed [place] [address] [place] [address] MEDICAID Advance Directives For more information, please contact: [phone] * Full Code (Latest Code Status on File) Date Activated Date Inactivated Comments 09/19/2017 10:15 PM 09/22/2017 5:18 PM * Full Code Date Activated Date Inactivated Comments 09/19/2017 7:47 PM 09/19/2017 10:14 PM
--- OUTSIDE RECORDS SUMMARY | 2025-03-14 20:48 | XMS_ITS | Encounter Summary ---
Author Organization [employer] [facility] Address [address] [place] [address] Care Team Providers Care Transitional Living Specialist Name Role Phone Unavailable Primary Care Provider Unavailabl e Encounter Details Date Type Department Care Team (Latest Contact Info) Description 03/23/1999 Outpatient Historical HIS [facility] Nick Tracy Jr., MD [address] [place] [phone] Volume depletion (Primary Dx); Acute upper respiratory infections of unspecified site Social History Tobacco Use Types Packs/Day Years Used Date Smoking Tobacco: Never Assessed Comments Unknown Sex and Gender Information Value Date Recorded Sex Assigned at Not on file Legal Sex Female 4:07 AM TENANT SELECTOR Gender Identity Not on file Sexual Orientation Not on file documented as of this encounter Plan of Treatment Not on file documented as of this encounter Visit Diagnoses Diagnosis Volume depletion- Primary Acute upper respiratory infections of unspecified site documented in this encounter
--- OUTSIDE RECORDS SUMMARY | 2025-03-14 20:48 | XMS_ITS | Encounter Summary ---
Author Organization [employer] [facility] Address [address] [place] [address] Care Team Providers Care Motorboat Mechanic Helper Name Role Phone Unavailable Primary Care Provider Unavailabl e Encounter Details Date Type Department Care Team (Latest Contact Info) Description 01/11/2000 Outpatient Historical HIS [facility] Kevon Rojas MD [address] [place] [phone] Open wound of hand except finger(s) alone, without mention of complication (Primary Dx); Posttraumatic wound infection not elsewhere classified; Attention to dressings and sutures Social History Tobacco Use Types Packs/Day Years Used Date Smoking Tobacco: Never Assessed Comments Unknown Sex and Gender Information Value Date Recorded Sex Assigned at Not on file Legal Sex Female 4:07 AM COMMUNITY CHEST OFFICER Gender Identity Not on file Sexual Orientation Not on file documented as of this encounter Plan of Treatment Not on file documented as of this encounter Visit Diagnoses Diagnosis Open wound of hand except finger(s) alone, without mention of complication- Primary Posttraumatic wound infection not elsewhere classified Attention to dressings and sutures documented in this encounter
--- OUTSIDE RECORDS SUMMARY | 2025-03-14 20:48 | XMS_ITS | Encounter Summary ---
Author Organization [facility] Address [address] [place] [address] Care Team Providers Care Knitting Demonstrator Name Role Phone Unavailable Primary Care Provider Unavailabl e Encounter Details Date Type Department Care Team (Latest Contact Info) Description 01/08/1999 Outpatient Historical [facility] Jasonbelen Bogdan Pieter NO ADDRESS ON FILE Otalgia, unspecified (Primary Dx) Social History Tobacco Use Types Packs/Day Years Used Date Smoking Tobacco: Never Assessed Comments Unknown Sex and Gender Information Value Date Recorded Sex Assigned at Not on file Legal Sex Female 4:07 AM LIME SPREADER Gender Identity Not on file Sexual Orientation Not on file documented as of this encounter Plan of Treatment Not on file documented as of this encounter Visit Diagnoses Diagnosis Otalgia, unspecified- Primary documented in this encounter
--- OUTSIDE RECORDS SUMMARY | 2025-03-14 20:48 | XMS_ITS | Encounter Summary ---
Author Organization [employer] [facility] Address [address] [place] [address] Care Team Providers Care Metal Polisher And Buffer Apprentice Name Role Phone Unavailable Primary Care Provider Unavailabl e Encounter Details Date Type Department Care Team (Latest Contact Info) Description 01/14/2000 Outpatient Historical [facility] Kevon Rojas MD [address] [place] [id number] Posttraumatic wound infection not elsewhere classified (Primary Dx); Attention to dressings and sutures Social History Tobacco Use Types Packs/Day Years Used Date Smoking Tobacco: Never Assessed Comments Unknown Sex and Gender Information Value Date Recorded Sex Assigned at Not on file Legal Sex Female 4:07 AM CORPORATE LAW ASSISTANT Gender Identity Not on file Sexual Orientation Not on file documented as of this encounter Plan of Treatment Not on file documented as of this encounter Visit Diagnoses Diagnosis Posttraumatic wound infection not elsewhere classified- Primary Attention to dressings and sutures documented in this encounter
--- OUTSIDE RECORDS SUMMARY | 2025-03-14 20:48 | XMS_ITS | Clinical Summary ---
Author Organization [facility] Address [address] [facility] Attn: [place] [address] Care Team Providers Care Golf Course Starter Name Role Phone Unavailable Primary Care Provider [...] on file Legal Sex Female 4:43 PM THERAPEUTIC SUPPORT STAFF Gender Identity Not on file Sexual Orientation Not on file Last Filed Vital Signs Vital Sign Reading Time Taken Comments Blood Pressure 101/47 04/04/2018 4:41 AM THERAPEUTIC SUPPORT STAFF Pulse 82 04/04/2018 3:51 AM THERAPEUTIC SUPPORT STAFF Temperature 37.6 C (99.6 F) 04/04/2018 4:41 AM THERAPEUTIC SUPPORT STAFF Respiratory Rate 16 04/04/2018 4:41 AM THERAPEUTIC SUPPORT STAFF Oxygen Saturation - - Inhaled Oxygen Concentration - - Weight 67.1 kg (148 lb) 04/04/2018 1:23 AM THERAPEUTIC SUPPORT STAFF Height 162.6 cm (5' 4 ) 04/04/2018 1:23 AM THERAPEUTIC SUPPORT STAFF Body Mass Index 25.4 04/04/2018 1:23 AM THERAPEUTIC SUPPORT STAFF Plan of Treatment Health Maintenance Due Date Last Done Comments DTAP/TDAP/TD VACCINES (2 - Tdap) 10/12/2004 10/12/19 05 HPV/Cotest (21-29) 2009 CERVICAL CANCER SCREENING 2018 HPV/Cotest (30-65) 2018 PAP SMEAR 2018 INFLUENZA VACCINE (#1) 2024 HEPATITIS B VACCINES Completed 07/31/1999, 04/13/1999, 02/20/1999 HPV VACCINES (No Doses Required) Completed
== END 2025-03-14 16:50 | disposition home or self-care (01) ==
PROVIDERS: Emergency Provider Family Medicine; PCP Family Medicine
DX: F10.229 Alcohol dependence with intoxication, unspecified (principal); Y90.7 Blood alcohol level of 200-239 mg/100 ml; F17.210 Nicotine dependence, cigarettes, uncomplicated
CPT/HCPCS: 36415; 80053; 80307; 85025; 99283